=== PATIENT | female | born 1960 | race Asian ===

== ENCOUNTER 2019-10-27 12:24 | Outpatient (CLI) | payer OTHER, SELFPAY ==
--- NOTE | ~2019-10-27 | XR_ITS ---
XR hand RT min 3V DATE: 10/27/2019 12:52 INDICATION: Right hand pain TECHNIQUE: 3 views COMPARISON: 10/27/2016 right hand FINDINGS: There is prominent osteoarthritic change at the first carpometacarpal joint. Diffuse osteopenia. No fracture, dislocation, periosteal reaction or bone destruction is detected. IMPRESSION: Osteopenia Prominent osteoarthritic change at the first carpometacarpal joint Reviewed, dictated and finalized at location A.
--- NOTE | ~2019-10-27 | XR_ITS ---
XR knee RT min 4V, XR knee LT min 4V 10/27/2019 12:52 Indication: Bilateral knee pain Procedure: 4 views each knee Comparison: No prior studies for comparison. Findings: There is mild osteoarthritis of both knees. No fracture or traumatic malalignment. Small ri ght joint effusion. No significant left knee effusion Impression: 1: Mild osteoarthritis of the knees. 2: Small right knee effusion. Reviewed, dictated and finalized at location A. Impression: 1: Mild osteoarthritis of the knees. 2: Small right knee effusion. Impression: 1: Mild osteoarthritis of the knees. 2: Small right knee effusion.
== END 2019-10-27 12:25 | disposition home or self-care (01) ==
PROVIDERS: PCP Family Medicine; Visit Provider Nurse Practitioner
DX: M79.641 Pain in right hand (principal); M25.562 Pain in left knee; M25.561 Pain in right knee; M85.841 Other specified disorders of bone density and structure, right hand; M17.0 Bilateral primary osteoarthritis of knee; M25.461 Effusion, right knee
CPT/HCPCS: 73130; 73564

== ENCOUNTER 2020-04-16 21:56 | Emergency (ER) | payer OTHER, SELFPAY ==
--- NOTE | ~2020-04-16 | XR_ITS ---
EXAMINATION: XR chest 1V portable INDICATION: Cough, COVID 19 positive TECHNIQUE: Portable AP chest at 2243 hours COMPARISON: 06/19/2011 FINDINGS: There are patchy opacities of the mid and lower lung zones, right greater than left. No ple ural effusion or pneumothorax is identified. The cardiomediastinal silhouette is normal. The visualiz ed osseous structures are unremarkable. IMPRESSION: 1. Patchy opacities of the mid and lower lung zones, consistent with COVID 19 pneumonia. Reviewed, dictated and finalized at location A. [employer]CHO[employer]INATOR IMPRESSION: 1. Patchy opacities of the mid and lower lung zones, consistent with COVID 19 p neumonia.
[2020-04-16 22:04] VITALS: BP 125/77; PULSE 78; RESP 22; TEMP 37.1; O2SAT 98
--- NOTE | 2020-04-16 22:25 | ED.GENADULT ---
HPI - General Adult General Chief complaint: Nausea/Vomiting/Diarrhea Stated complaint: covid+ 04/11/2020; fever/diarrhea/sob Time Seen by Provider: 04/16/20 22:16 Source: patient History of Present Illness HPI narrative: Patient is a 59 y/o female complaining of fever and diarrhea for 9 days. She states that her fever was up to 102 earlier today. She took Tylenol, which usually helps with her fever, but her fever usually returns. She also has a cough. She had COVID test on 04/10 and was told that it was positive on 04/11. Related Data Home Medications Medication Instructions Recorded Confirmed acetaminophen 325 mg capsule 325 mg PO Q6H PRN 11/17/19 11/17/19 metoprolol tartrate 50 mg tablet 50 mg PO DAILY 11/17/19 11/17/19 Allergies Allergy/AdvReac Type Severity Reaction Status Date / Time No Known Allergies Allergy Verified 11/17/19 13:44 Review of Systems Constitutional: Constitutional: Denies chills, Reports fever(s), Denies headache(s) and Denies weakness Eyes: Eyes: Denies blurry vision ENT: Denies headache(s) and Denies neck pain Cardiovascular: Cardiovascular: Denies chest pain and Denies dyspnea Respiratory: Respiratory: Denies cough and Denies dyspnea Gastrointestinal: Gastrointestinal: Denies abdominal pain, Reports diarrhea, Denies nausea and Denies vomiting Genitourinary: Genitourinary: Denies hematuria and Denies dysuria Musculoskeletal: Musculoskeletal: Denies back pain and Denies neck pain Neurologic: Denies headache(s) and Denies weakness FOR[facility]LY [facility] Past Medical History Medical History Arthritis Bilateral knee pain Chronic headaches Degenerative joint disease of knee Frequency of urination Hearing loss History of angiography HTN (hypertension) Knee effusion Seasonal allergies Sleep disorder Stomach ulcer Family History Family History Father Hypertension, Onset Age: 83 Family history of cardiovascular disease, Onset Age: 82 Mother Hypertension, Onset Age: 65 Other Arthritis Social History Social History Smoking status: Never smoker Alcohol intake: never Exam Const: General: no acute distress and well developed Orientation/consciousness: oriented to person, oriented to place, oriented to time and patient oriented x3 HENMT: Head: normocephalic Ears: external ears normal General nose exam: Normal external nose present Eyes: General: appearance normal, both eyes and all related structures Conjunctivae: conjunctivae normal Neck: Neck: normal visual inspection and full ROM Chest: Chest palpation & inspection: normal inspection of the chest and no tenderness Resp: Effort & Inspection: normal respiratory effort Auscultation: clear to auscultation bilaterally Cardio: Rate: regular rate Rhythm: regular rhythm GI: GI Palp: No abdominal tenderness and Yes Soft to palpation Skin: General skin exam: normal color and turgor normal Neuro: General: oriented to person, oriented to place, oriented to time and patient oriented x3 Cognition (Neuro): normal cognition Extrem: General: normal to inspection, full ROM and no pedal edema Psych: Appearance: grossly normal Mental Status: mental status grossly normal Affect: normal affect Course Consultations Consultation #1: Discussed with Dr. Reyes, who agrees with plan for discharge and will follow up with patient tomorrow. Date: 04/16/20 Time: 23:40 Vital Signs Vital signs: Vital Signs Temperature 37.1 C 04/16/20 22:04 Pulse Rate 78 04/16/20 22:04 Respiratory Rate 22 H 04/16/20 22:04 Blood Pressure 125/77 04/16/20 22:04 Pulse Oximetry 98 04/16/20 22:04 Temperature 37.1 C 04/16/20 22:04 Pulse Rate 76 04/16/20 22:46 Respiratory Rate 22 H 04/16/20 22:04 Blood Pressure 125/77 04/16/20 22:04 Pulse Oximetry 99
[2020-04-16 22:46] VITALS: BP 108/68; PULSE 74; PULSE 76; RESP 16; O2SAT 94; O2SAT 99
[2020-04-16] MEDS: SODIUM CHLORIDE 0.9% IV 1,000 ML 999 ML IV CONT (22:46)
[2020-04-16 22:50] LABS: Basophils Percent Auto 0.2 % (0.2-1.2); Hematocrit 34.3 % (37.0-47.0); Hemoglobin 10.7 g/dL (12.0-15.0); Immature Granulocyte Absolute 0.02 K/mm3 (0.00-0.031); Immature Granulocyte Percent A 0.4 % (0-0.5); Lymphocytes Absolute Auto 1.65 K/mm3 (0.9-3.2); Lymphocytes Percent Auto 28.9 % (18.3-44.2); Mean Corpuscular HGB Conc 31.2 g/dl (32-36); Mean Corpuscular Hemoglobin 25.8 pg (26-34); Mean Corpuscular Volume 82.7 fl (80-100); Mean Platelet Volume 11.2 fl (7.4-10.4); Monocytes Absolute Auto 0.2 K/mm3 (0.1-0.6); Monocytes Percent Auto 4.2 % (2.6-8.5); Neutrophils Absolute Auto 3.8 K/mm3 (1.3-6.7); Neutrophils Percent Auto 66.3 % (45.5-73.1); Platelet Count Result 158 k/mm3 (150-375); Red Blood Count 4.15 M/mm3 (4.2-5.4); Red Cell Distribution Width 12.5 % (11.5-14.5); White Blood Count 5.7 K/mm3 (4.5-10.0)
[2020-04-16 22:58] LABS: Add Urine Microscopic? YES; Appearance Urine Clear (Clear); Bilirubin Urine Negative (Negative); Blood Urine 1+ (Negative); Color Urine Straw (Yellow); Glucose Urine UA Negative (Negative); Ketones Urine Negative (Negative); Leukocyte Esterase Ur Negative LEU/UL (Negative); Mucus Urine Rare /lpf; Nitrate Urine Negative (Negative); Protein Urine Negative (Negative); Squamous Epithelial Cell Urine Rare /hpf (Few); Urobilinogen Urine Negative mg/dL (<2.0); WBC Urine 0-3 /hpf
[2020-04-16 23:07] LABS: Alanine Aminotransferase 20 U/L (4-35); Albumin Level 3.6 g/dL (3.5-5.1); Alkaline Phosphatase 52 U/L (38-126); Anion Gap 6 mmol/L (8-16); Aspartate Amino Transferase 35 U/L (14-36); Bilirubin,Total 0.2 mg/dL (0.2-1.3); Blood Urea Nitrogen 13 mg/dL (7-17); Carbon Dioxide 29 mmol/L (22-30); Chloride 97 mmol/L (98-107); Estimated CRCL calculation 41 ml/min; Estimated Glomerular Filt Rate 51; Glucose 115 mg/dL (65-105); Potassium 3.8 mmol/L (3.4-5.0); Sodium 132 mmol/L (137-145)
[2020-04-17 00:13] VITALS: BP 110/65; PULSE 72; RESP 20; TEMP 37.7; O2SAT 99
== END 2020-04-17 00:15 | disposition home or self-care (01) ==
PROVIDERS: Emergency Provider Emergency Medicine; PCP Family Medicine
DX: U07.1 COVID-19 (principal); J12.82 Pneumonia due to coronavirus disease 2019; M17.11 Unilateral primary osteoarthritis, right knee; I10 Essential (primary) hypertension
CPT/HCPCS: 36415; 71045; 80053; 81001; 85025; 96360; 99283; J7030

== ENCOUNTER 2020-11-13 13:30 | Outpatient (RCR) | payer OTHER, SELFPAY ==
--- NOTE | 2020-09-12 15:44 | PTOPEVAL ---
Thank you for referring Flaquita Hough to [facility].? The patient is scheduled to be seen for therapy? 2 x/week for 5 weeks. Please review, sign, date and return this plan of care CORINE. I agree with and certify that the following plan of care is medically necessary. Referring Physician Date Attending Provider: Isaias Chung MD Diagnosis OA ponce knee Onset chronic Additional Evaluation Detail Fell down the steps 8 yrs ago, landing on her left knee. She has received an injection in both knees. She has a compression brace for her knee, but not consistently wearing. - not consistently performing a HEP. Subjective Information She reports difficulty Query Text:As Reported By Patient/ transitioning from sit<>stand, Family negotiating steps, running, walking. She increased pain with bending the knees. She reports limited with prolonged sitting, standing and inhalation therapist due to pain. She tries to avoid steps, but her bedroom is on the 2nd level. She has mild swelling in the left knee. Diagnostic Tests X-Rays For This Problem Yes: Mild to moderate medial and lateral compartment DJD with osteophyte Previous Treatments Previous Treatments For This Problem yes 2-3 yrs ago Pain Assessment Self Report Pain Assessment Left Knee(s) Reported Pain Level 8 Pain Description Aching,Sharp Greatest Pain Intensity 10 Pain Aggravating Factors ADL's,Bending,Exercise/ Activity,Lifting,Prolonged Position,Sitting,Stair Climbing,Walking,Weight Bearing/Standing Right Knee(s) Reported Pain Level 6 Pain Description Aching,Sharp Greatest Pain Intensity 10 Pain Aggravating Factors ADL's,Bending,Exercise/ Activity,Lifting,Prolonged Position,Sitting,Stair Climbing,Walking,Weight Bearing/Standing Lower Extremity Range of Motion Knee Range of Motion Right Knee Flexion Range of Motion - Active 130 Knee Extension Range of Motion - Active 0 Left Knee Flexion Range of Motion - Active 135
--- NOTE | 2020-10-10 14:26 | PCPTNOTE ---
Patient did not show up for scheduled appointment this date. Called and left voicemail about missed appointment today. Reminded of upcoming appointment on Thursday10/15/20 @ 14:00.
--- NOTE | 2020-10-17 15:08 | PTOPEVAL ---
Physical Therapy Progress Note Thank you for referring Flaquita Hough to [facility].?See summary below for pt's progress with 10 therapy visits. She is progressing towards her therapy goals. The patient is scheduled to be seen for therapy? 2 x/week for 3 weeks missing week of 10/22/20 due to out of town. Please review, sign, date and return this plan of care CORINE. I agree with and certify that the following plan of care is medically necessary. Referring Physician Date Attending Provider: Isaias Chung Diagnosis OA ponce knee Onset chronic Additional Evaluation Detail Fell down the steps 8 yrs ago, landing on her left knee. She has received an injection in both knees. She has a compression brace for her knee, but not consistently wearing. - not consistently performing a HEP. Subjective Information She reports improved ability Query Text:As Reported By Patient/ to difficulty with daily task. Family She continues to have limitations with sit<>stand movement from all surfaces, negotiating steps,squatting, sitting, and walking. She increased pain with bending the knees. She reports limitations with hold chores due to pain. She tries to avoid steps due to pain. She does feel like she is getting stronger with therapy. Slight improve noises from the knee. Pain Assessment Left Knee(s) Reported Pain Level 6 Pain Description Aching,Sharp Pain Frequency Continuous Lowest Pain Intensity 5 Greatest Pain Intensity 10 Right Knee(s) Reported Pain Level 6 Lowest Pain Intensity 5 Greatest Pain Intensity 10 Lower Extremity Range of Motion Knee Range of Motion Right Knee Flexion Range of Motion - Active 130 Knee Extension Range of Motion - Active 0 Left Knee Flexion Range of Motion - Active 135 Knee Extension Range of Motion - Active 0 Lower Extremity Muscle Strength Testing Hip Strength Bilateral Hip Flexion Strength 4+ Good + Hip Extension Strength 3 Fair Hip Abduction Strength 3 Fair Knee Strength Bilateral Knee Flexion Strength 4 Good Knee Extension Strength 4+ Good + Muscle Length Testing Muscle Length Testing
--- NOTE | 2020-11-07 12:44 | PCPTNOTE ---
Patient called & cancelled scheduled appointment this date and rescheduled for 11/08/20.
--- NOTE | 2020-11-13 14:24 | PTOPEVAL ---
Physical therapy Discharge Note Thank you for referring Flaquita Hough to [facility].?She has received 16 therapy visits to address chronic knee pain. She has been instructed in a HEP. She has partially achieved her therapy goals at this time. Will DC skilled therapy services as she has reached maximal potential with skilled therapy services at this time. Please review, sign, date and return this discharge summary CORINE. I agree with and certify that the following plan of care is medically necessary. Referring Physician Date Attending Provider: Isaias Chung Diagnosis OA pnoce knee Onset chronic Additional Evaluation Detail Fell down the steps 8 yrs ago, landing on her left knee. She has received an injection in both knees. Subjective Information She reports improved ability Query Text:As Reported By Patient/ to difficulty with daily task. Family She continues to have limitations with distance walking. She has difficulty with prolonged sitting or long car rides. She denies any progress with ability to negotiate steps. Cont to c/o noises from the knee with knee motions. Reports improved ability to perform sit<>Stand as a result of therapy. States she is performing HEP daily. Pain Assessment Left Knee(s) Reported Pain Level 5 Lowest Pain Intensity 4 Greatest Pain Intensity 10 Right Knee(s) Reported Pain Level 5 Lowest Pain Intensity 4 Greatest Pain Intensity 10 Lower Extremity Muscle Strength Testing Hip Strength Bilateral Hip Flexion Strength 4+ Good + Hip Extension Strength 3+ Fair + Hip Abduction Strength 3 Fair Hip Strength Comments poor effort with testing Knee Strength Bilateral Knee Flexion Strength 4 Good Knee Extension Strength 4+ Good + Knee Strength Comments poor effort with testing Balance Assessment 5 Time Sit to Stand Time in Seconds 16 5 Time Sit to Stand Comments improved LE control and movement, without UE, wide CHRIS Gait Assessment Gait Pattern Assessment Gait Pattern Trendelenburg Gait Gait Pattern Observed Decreased Stride Length - Left ,Decreased Stride Length - Right,No Heel Strike - Left,No Heel Strike - Right,Trunk Flexed Other Gait Obs
== END 2020-11-13 16:36 | disposition home or self-care (01) ==
LOC: ANHPT 13:30
PROVIDERS: PCP Family Medicine
DX: M17.12 Unilateral primary osteoarthritis, left knee (principal)
CPT/HCPCS: 97014; 97110; 97112; 97140; 97162; 97530; G0283

== ENCOUNTER 2021-09-26 13:05 | Outpatient (RCR) | payer OTHER, SELFPAY | END 2021-09-26 23:59 | disposition home or self-care (01) | LOC: ANHAUDIO 13:05 | PROVIDERS: PCP Family Medicine; Visit Provider Family Medicine | DX: Z46.1 Encounter for fitting and adjustment of hearing aid (principal) | CPT/HCPCS: 99199 ==

== ENCOUNTER 2021-09-30 19:07 | Emergency (ER) | payer OTHER, SELFPAY ==
--- NOTE | ~2021-09-30 | XR_ITS ---
EXAMINATION: XR knee RT min 4V DATE: 09/30/2021 20:11 INDICATION: Right knee pain. TECHNIQUE: 4 views of right knee were obtained. COMPARISON: Right knee radiographs 01/01/21 FINDINGS: Bone alignment is normal. No fracture. There is severe osteoarthritis of patellofemoral com partment and mild osteoarthritis of medial and lateral compartments. There is a small knee joint effu francine. IMPRESSION: 1. Severe right knee osteoarthritis. 2. Small right knee joint effusion. Reviewed, dictated and finalized at location A.
[2021-09-30 19:44] VITALS: BP 168/68; PULSE 65; RESP 20; TEMP 36.2; O2SAT 100
--- NOTE | 2021-09-30 22:07 | ED.LOWEXIN ---
HPI - Extremity Injury (Lower) General Chief Complaint: Extremity Injury, Lower Stated Complaint: right leg pain Time Seen by Provider: 09/30/21 21:43 History of Present Illness HPI Narrative: 61-year-old female presents emergency room secondary pain to her right knee. States she was down doing some bathroom floors and suddenly has some pain into her right knee. That happened a day or so ago and continued to have the pain. Denies any falls. Denies any history of any chronic ongoing pain with that right knee. Not starting care for prior to today. Related Data Home Medications Medication Instructions Recorded Confirmed acetaminophen 325 mg capsule 325 mg PO Q6H PRN 11/17/19 01/01/21 (Tylenol) metoprolol tartrate 50 mg tablet 50 mg PO DAILY 11/17/19 01/01/21 Allergies Allergy/AdvReac Type Severity Reaction Status Date / Time No Known Allergies Allergy Verified 09/30/21 19:47 Review of Systems Review of Systems: CONSTITUTIONAL: Denies fever, chills, or sweats. EYES: Denies visual changes, redness, or discharge. ENT: Denies rhinorrhea, congestion, sore throat, or otalgia. CARDIOVASCULAR: Denies chest pain, palpitations, or edema. RESPIRATORY: Denies cough or dyspnea. GASTROINTESTINAL: Denies abdominal pain, nausea, vomiting, or diarrhea. GENITOURINARY: Denies dysuria or hematuria. SKIN: Denies rash or itching. MUSCULOSKELETAL: Pain to the right knee. Falls or trauma. NEUROLOGIC: Denies headache, numbness, or weakness. PSYCHIATRIC: Denies anxiety or depression. COUNT INCLUDES THE [facility] Past Medical History Medical History Arthritis Bilateral knee pain Chronic headaches Degenerative joint disease of knee Frequency of urination Hearing loss History of angiography HTN (hypertension) Knee effusion Left knee DJD Left knee pain Right knee DJD Right knee pain Seasonal allergies Sleep disorder Stomach ulcer Family History Family History Father Hypertension, Onset Age: 83 Family history of cardiovascular disease, Onset Age: 82 Mother Hypertension, Onset Age: 65 Other Arthritis Social History Social History Smoking status: Never smoker Alcohol intake: never Exam Narrative: APPEARANCE: Well appearing, no pain or distress, well-nourished. Head Normocephalic and atraumatic. EYES: PERRLA/EOMI, conjunctivae clear. NOSE: Normal with no drainage EARS:TMS clear with Vu, with good light reflex. THROAT: Pharynx clear, no exudate. NECK: Supple. No adenopathy, no masses. RESPIRATORY: Airway patent, respirations nonlabored. Clear to auscultation bilaterally, no rales, rhonchi, wheezing. CARDIOVASCULAR: Regular rate and rhythm without murmurs, rubs, or gallops. ABDOMINAL: Soft, nontender, nondistended, no hepatosplenomegaly Musculoskeletal: Moves all extremities. Strength/ROM intact, No edema, No calf tenderness. Some mild tenderness to palpation of the right knee. No large effusion able to be noted on physical examination. Patella is not ballotable. NEURO: Alert. Cranial nerves II through XII intact. Normal gait. Good coordination. Nonfocal examination. SKIN:: Warm, dry. Normal Color PSYCHIATRIC: Normal affect/mood, normal interaction Course Vital Signs Vital signs: Vital Signs Temperature 97.2 F L 09/30/21 19:44 Pulse Rate 65 09/30/21 19:44 Respiratory Rate 20 09/30/21 19:44 Blood Pressure 168/68 H 09/30/21 19:44 Pulse Oximetry 100 09/30/21 19:44 Oxygen Delivery Room Air 09/30/21 19:44 Temperature 97.2 F L 09/30/21 19:44 Pulse Rate 65 09/30/21 19:44 Respiratory Rate 20 09/30/21 19:44 Blood Pressure 168/68 H 09/30/21 19:44 Pulse Oximetry 100 09/30/21 19:44 Oxygen Delivery Room Air 09/30/21 19:44 MDM - Extremity Injury (Lower) MDM Narrative Medical decision making narrative: X-ray
== END 2021-09-30 22:29 | disposition home or self-care (01) ==
LOC: ANHED 22:12
PROVIDERS: Emergency Provider Emergency Medicine; PCP Family Medicine
DX: M17.11 Unilateral primary osteoarthritis, right knee (principal); M25.461 Effusion, right knee; I10 Essential (primary) hypertension
CPT/HCPCS: 73564; 99283

== ENCOUNTER 2021-11-10 12:32 | Outpatient (CLI) | payer OTHER, SELFPAY ==
--- NOTE | ~2021-11-10 | MR_ITS ---
EXAMINATION: MR knee LT wo con DATE: 11/10/2021 13:54 INDICATION: Left knee pain. TECHNIQUE: Magnetic resonance imaging (MRI) of the left knee was performed without intravenous contra st. Sequences included axial PD-weighted FS FSE, coronal PD-weighted FSE and PD-weighted FS FSE, sagi ttal PD-weighted FSE, and sagittal T2-weighted FS FSE. COMPARISON: Left knee radiographs 10/10/2021 FINDINGS: Medial compartment: Medial meniscus is normal. There is shallow partial-thickness cartilage loss of the tibial condyle in volving the central articular surface with moderate subchondral edema-like marrow signal intensity. D ecreased signal in the cartilage is equivocal for deeper cartilage injury. Femoral condyle demonstrat es full-thickness cartilage loss of extreme posterior articular surface with intra-articular osteophy te. There is deep partial thickness cartilage loss of femoral condyle involving the central articular surface. Osteophytes are noted. Lateral compartment: Lateral meniscus is normal. There is deep partial thickness cartilage loss of tibial condyle medially . There is shallow partial-thickness cartilage loss of femoral condyle. Osteophytes are noted. Patellofemoral compartment: There is full-thickness cartilage loss involving patellar medial facet, median ridge, and lateral fac et with cortical remodeling and mild subchondral edema-like marrow signal intensity. There is full-th ickness cartilage loss of central and lateral trochlea with cortical remodeling and mild subchondral edema-like marrow signal intensity. Osteophytes are noted. Ligaments and tendons: The anterior and posterior cruciate ligaments are normal. Medial collateral ligament is normal. There are changes of prior sprain of fibular collateral ligament characterized by increased signal intensi ty proximally. There is mild patellar tendinopathy. Fluid: There is a small knee joint effusion. There is a small Wilhelm's cyst. There is mild prepatellar and marte perficial infrapatellar bursitis. IMPRESSION: 1. Severe chondrosis of patellofemoral compartment and moderate chondrosis of medial and lateral comp artments. 2. Small knee joint effusion. 3. Small Wilhelm's cyst. Reviewed, dictated and finalized at location A. IMPRESSION: 1. Severe chondrosis of patellofemoral compartment and moderate chondrosis of m edial and lateral compartments. 2. Small knee joint effusion. 3. Small Wilhelm's cyst.
--- NOTE | ~2021-11-10 | MR_ITS ---
EXAMINATION: MR knee RT wo con DATE: 11/10/2021 13:54 INDICATION: Right knee pain. TECHNIQUE: Magnetic resonance imaging (MRI) of the right knee was performed without intravenous contr ast. Sequences included axial PD-weighted FS FSE, coronal PD-weighted FSE and PD-weighted FS FSE, sag ittal PD-weighted FSE, and sagittal T2-weighted FS FSE. COMPARISON: Right knee radiographs 10/10/2021 FINDINGS: Medial compartment: Medial meniscus is normal. There is deep partial thickness cartilage loss of tibial condyle involving the central articular surface with mild subchondral edema-like marrow signal intensity. There is rachna p partial thickness cartilage loss of femoral condyle involving the central articular surface. Osteop hytes are noted. Lateral compartment: Lateral meniscus is normal. There is deep partial thickness cartilage loss of tibial condyle involvin g the medial articular surface. There is cartilage surface irregularity of femoral condyle. Osteophyt es are noted. Patellofemoral compartment: There is full-thickness cartilage loss of patellar median ridge and lateral facet with cortical remod eling and mild subchondral edema-like marrow signal intensity. There is deep partial thickness cartil age loss of patellar medial facet. There is full-thickness cartilage loss of central and lateral troc hlea with cortical remodeling and mild subchondral edema-like marrow signal intensity. Osteophytes ar e noted. Ligaments and tendons: The anterior and posterior cruciate ligaments are normal. Medial collateral ligament and lateral jame ateral ligament complex are normal. The patellar tendon is normal. Fluid: There is a small knee joint effusion. There is a moderate-sized Wilhelm's cyst. There is mild superfici al infrapatellar bursitis. IMPRESSION: 1. Severe chondrosis of patellofemoral compartment and moderate chondrosis of medial and lateral comp artments. 2. Small knee joint effusion. 3. Moderate-sized Wilhelm's cyst. Reviewed, dictated and finalized at location A. IMPRESSION: 1. Severe chondrosis of patellofemoral compartment and moderate chondrosis of m edial and lateral compartments. 2. Small knee joint effusion. 3. Moderate-sized Wilhelm's cyst.
== END 2021-11-10 12:33 | disposition home or self-care (01) ==
PROVIDERS: PCP Family Medicine; Visit Provider Nurse Practitioner Family
DX: M71.22 Synovial cyst of popliteal space [Baker], left knee (principal); M71.21 Synovial cyst of popliteal space [Baker], right knee; M25.462 Effusion, left knee; M25.461 Effusion, right knee
CPT/HCPCS: 73721

== ENCOUNTER 2022-02-19 13:18 | Outpatient (CLI) | payer OTHER, SELFPAY ==
[2022-02-19 13:40] LABS: Basophils Percent Auto 0.4 % (0.2-1.2); Eosinophils Absolute Auto 0.2 K/mm3 (0-0.3); Hematocrit 38.3 % (37.0-47.0); Hemoglobin 11.7 g/dL (12.0-15.0); Immature Granulocyte Absolute 0.02 K/mm3 (0.00-0.031); Immature Granulocyte Percent A 0.3 % (0-0.5); Lymphocytes Absolute Auto 2.41 K/mm3 (0.9-3.2); Mean Corpuscular HGB Conc 30.5 g/dl (32-36); Mean Corpuscular Hemoglobin 26.3 pg (26-34); Mean Corpuscular Volume 86.1 fl (80-100); Mean Platelet Volume 11.7 fl (7.4-10.4); Monocytes Absolute Auto 0.5 K/mm3 (0.1-0.6); Monocytes Percent Auto 6.1 % (2.6-8.5); Neutrophils Absolute Auto 4.5 K/mm3 (1.3-6.7); Neutrophils Percent Auto 59.2 % (45.5-73.1); Platelet Count Result 172 k/mm3 (150-375); Red Blood Count 4.45 M/mm3 (4.2-5.4); Red Cell Distribution Width 13.7 % (11.5-14.5); White Blood Count 7.5 K/mm3 (4.5-10.0)
--- NOTE | 2022-02-19 13:47 | ECG_ITS ---
Measurements Intervals [place] Rate: 51 P: 57 MA: 171 QRS: 67 QRSD: 94 T: 43 QT: 455 QTc: 422 Interpretive Statements SINUS BRADYCARDIA BASELINE ARTIFACT- I BORDERLINE ECG NO PREVIOUS ECG AVAILABLE FOR COMPARISON Electronically Signed On 02-19-2022 14:29:31 NOVELTY DIPPER by Dain Stanton D.O.
[2022-02-19 13:51] LABS: Anion Gap 4 mmol/L (8-16); Blood Urea Nitrogen 11 mg/dL (7-17); Calcium 8.3 mg/dL (8.4-10.2); Carbon Dioxide 31 mmol/L (22-30); Chloride 105 mmol/L (98-107); Estimated Glomerular Filt Rate > 60; Glucose 94 mg/dL (65-110); Potassium 4.1 mmol/L (3.4-5.0); Sodium 140 mmol/L (137-145)
[2022-02-19 14:16] LABS: Add Urine Microscopic? YES; Appearance Urine Clear (Clear); Bilirubin Urine Negative (Negative); Blood Urine Trace-Intact (Negative); Color Urine Yellow (Yellow); Glucose Urine UA Negative (Negative); Ketones Urine Negative (Negative); Leukocyte Esterase Ur Negative LEU/UL (Negative); Nitrate Urine Negative (Negative); Protein Urine Negative (Negative); Specific Grav Ur 1.015 (1.001-1.035); Urobilinogen Urine 0.2 mg/dL (<2.0)
[2022-02-19 14:42] LABS: Mucus Urine Rare /lpf; Squamous Epithelial Cell Urine Occasional /hpf (Few); WBC Urine 0-3 /hpf
== END 2022-02-19 13:19 | disposition home or self-care (01) ==
PROVIDERS: PCP Family Medicine; Visit Provider Orthopaedic Surgery
DX: M17.11 Unilateral primary osteoarthritis, right knee (principal); R00.1 Bradycardia, unspecified
CPT/HCPCS: 36415; 80048; 81001; 85025; 93005

== ENCOUNTER 2022-04-07 13:52 | Outpatient (CLI) | payer OTHER, SELFPAY ==
[2022-04-07 15:21] LABS: Appearance Urine Clear (Clear); Basophils Percent Auto 0.3 % (0.2-1.2); Bilirubin Urine Negative (Negative); Blood Urine Trace-intact (Negative); Color Urine Yellow (Yellow); Eosinophils Absolute Auto 0.1 K/mm3 (0-0.3); Eosinophils Percent Auto 1.8 % (0-4.4); Glucose Urine UA Negative (Negative); Hematocrit 35.7 % (37.0-47.0); Hemoglobin 11.2 g/dL (12.0-15.0); Immature Granulocyte Absolute 0.01 K/mm3 (0.00-0.031); Immature Granulocyte Percent A 0.1 % (0-0.5); Ketones Urine Negative (Negative); Leukocyte Esterase Ur Negative LEU/UL (Negative); Lymphocytes Absolute Auto 2.77 K/mm3 (0.9-3.2); Lymphocytes Percent Auto 40.7 % (18.3-44.2); Mean Corpuscular HGB Conc 31.4 g/dl (32-36); Mean Corpuscular Hemoglobin 26.3 pg (26-34); Mean Corpuscular Volume 83.8 fl (80-100); Mean Platelet Volume 11.4 fl (7.4-10.4); Monocytes Absolute Auto 0.4 K/mm3 (0.1-0.6); Monocytes Percent Auto 6.5 % (2.6-8.5); Neutrophils Absolute Auto 3.4 K/mm3 (1.3-6.7); Neutrophils Percent Auto 50.6 % (45.5-73.1); Nitrate Urine Negative (Negative); Platelet Count Result 216 k/mm3 (150-375); Protein Urine 1+ mg/dL (Negative); Red Blood Count 4.26 M/mm3 (4.2-5.4); Red Cell Distribution Width 14.2 % (11.5-14.5); Specific Grav Ur 1.025 (1.001-1.035); Urobilinogen Urine 0.2 mg/dL (<2.0); White Blood Count 6.8 K/mm3 (4.5-10.0); pH Urine 6.5 (5.0-9.0)
[2022-04-07 15:28] LABS: Mucus Urine Rare /lpf
[2022-04-07 15:29] LABS: Add Urine Microscopic? YES
[2022-04-07 15:32] LABS: Albumin Level 4.2 g/dL (3.5-5.1); Anion Gap 5 mmol/L (8-16); Blood Urea Nitrogen 15 mg/dL (7-17); Calcium 8.4 mg/dL (8.4-10.2); Carbon Dioxide 29 mmol/L (22-30); Chloride 101 mmol/L (98-107); Estimated Glomerular Filt Rate > 60; Glucose 98 mg/dL (65-110); INR 1.1; Prothrombin Time 13.8 Seconds (11.1-14.7); Sodium 135 mmol/L (137-145)
[2022-04-07 15:33] LABS: Partial Thromboplastin Time 30.9 SECONDS (22.3-36.8)
[2022-04-07 15:36] LABS: Urine Cotinine NEGATIVE
[2022-04-07 17:18] LABS: Hemoglobin A1C 5.7 % (<5.7)
== END 2022-04-07 13:53 | disposition home or self-care (01) ==
LOC: ANHSURGERY 13:56
PROVIDERS: PCP Family Medicine; Visit Provider Orthopaedic Surgery
DX: Z01.818 Encounter for other preprocedural examination (principal); M17.11 Unilateral primary osteoarthritis, right knee
CPT/HCPCS: 80048; 80307; 81001; 82040; 83036; 85025; 85610; 85730; 87081

== ENCOUNTER 2022-04-08 15:15 | Outpatient (CLI) | payer OTHER, SELFPAY ==
--- NOTE | ~2022-04-08 | DEXA_ITS ---
Bone Density Report Name: MARLENA SNIDER Age: 61 Sex: Female Ethnicity: Date of : 1960 Indication: postmenopausal; screening for osteoporosis; height loss; Referring Provider: LI ENGLE Study: Bone densitometry was performed. Exam Date: April 08, 2022 Accession number: [id number] Bone Density: Region BMD T-score Z-score Classification AP Spine(L1-L4) 0.754 -2.7 -1.2 Osteoporosis Femoral Neck (Left) 0.634 -1.9 -0.6 Osteopenia Total Hip (Left) 0.746 -1.6 -0.6 Osteopenia Femoral Neck (Right) 0.576 -2.5 -1.1 Osteoporosis Total Hip (Right) 0.661 -2.3 -1.3 Osteopenia Total Hip Mean 0.703 -2.0 -1.0 Osteopenia World Health Organization criteria for BMD impression classify patients as: Normal (T-score at or above -1.0), Osteopenia (T-score between -1.0 and -2.5), or Osteoporosis (T-score at or below -2.5). 10-year Fracture Risk: FRAX not reported because: Some T-score for Spine Total or Hip Total or Femoral Neck at or below -2.5 Clinical Information Provided by Patient: Has used the following medications: Vitamin D, Calcium Patient maximum height was 63 Menopause Age: 52 Does not regularly consume dairy products Onset of menses at age 14 Number of children 4 Impression: The patient has osteoporosis, based on the Total Spine T-score. Discussion: INCREASED RISK OF FRACTURE. BONE DENSITY IS UNDESIRABLY LOW AT ONE OR MORE SKELETAL SITES, CONSISTENT WITH POSTMENOPAUSAL OSTEOPOROSIS. This patient's lowest T-score meets the World Health Organization's (WHO) criteria for osteoporosis at one or more sites (T-score -2.5 or below). In untreated patients, the risk of osteoporotic fracture increases approximately two-fold for each 1.0 SD decrease in T-score. Low bone density is not the only risk factor for fracture; also consider factors such as patient's age, frailty or poor health, risk of falling, risk of injury, previous osteoporotic fracture, family history of osteoporosis, cigarette smoking, low body weight, etc. Not everyone with low bone mineral density has osteoporosis; osteomalacia and other metabolic bone disorders should also be considered. Patients who have osteoporosis should be evaluated for specific diseases and conditions (secondary causes) that may cause or contribute to bone loss. The [place] Association [employer] Endocrinologists (AACE) and National Osteoporosis Foundation (NOF) recommend pharmacologic intervention for all postmenopausal women whose T-score is in this range. The patient should follow a healthful lifestyle (good nutrition with adequate calcium and vitamin D, and appropriate weight-bearing exercise). Follow-Up: Consider a repeat BMD and Vertebral Fracture Assessment (VFA) exam in 2 years or sooner if medically necessary, to reassess this patient's status.
--- NOTE | ~2022-04-08 | MM_ITS ---
EXAMINATION: MM screening cornelio BI w gerard HISTORY: Screening mammogram TECHNIQUE: Craniocaudal and mediolateral oblique 3-D tomosynthesis images were obtained and synthetic 2-D images were generated. CAD analysis was submitted and interpreted. COMPARISON: 04/28/2018 diagnostic bilateral mammogram and limited right breast ultrasound examination 05/15/2017, 05/05 is also 2017 bilateral screening mammogram examinations BREAST PARENCHYMAL COMPOSITION: There are scattered areas of fibroglandular density. FINDINGS: Biopsy marker on the right. Focal asymmetry overlying the anterior medial left breast on CC view. Diagnostic left mammogram is re commended, with ultrasound if required. Otherwise there is no evidence of suspicious mass, calcification, or architectural distortion to sugg est malignancy in either breast. There has been no other suspicious interval change. IMPRESSION: 1. Focal asymmetry overlying the anterior medial left breast on CC projection 2. Diagnostic left mammogram is recommended, with ultrasound if required BI-RADS Category 0: Incomplete: Needs additional imaging evaluation. Reviewed, dictated and finalized at location A. UREMENT AGENT
== END 2022-04-08 15:16 | disposition home or self-care (01) ==
PROVIDERS: PCP Family Medicine; Visit Provider Obstetrics & Gynecology
DX: Z12.31 Encounter for screening mammogram for malignant neoplasm of breast (principal); Z78.0 Asymptomatic menopausal state; R92.8 Other abnormal and inconclusive findings on diagnostic imaging of breast; M85.89 Other specified disorders of bone density and structure, multiple sites; M81.0 Age-related osteoporosis without current pathological fracture
CPT/HCPCS: 77063; 77067; 77080

== ENCOUNTER 2022-04-16 10:21 | Outpatient (CLI) | payer OTHER, SELFPAY ==
--- NOTE | ~2022-04-16 | MM_ITS ---
EXAMINATION: MM diagnostic cornelio LT w gerard HISTORY: Focal asymmetry overlying the anterior medial left breast on screening craniocaudal view of April 08, 2022 TECHNIQUE: Additional 3-D tomosynthesis images of the left breast were performed and synthetic 2-D im ages were generated. CAD analysis was submitted and interpreted. COMPARISON: April 08, 2019 bilateral screening mammogram FINDINGS: The focal asymmetry noted in the anterior medial left breast on April 08, 2022 screening mammogram is not present on coned compression CC view of this area today. IMPRESSION: 1. No mammographic evidence of malignancy 2. Routine mammographic screening is recommended BI-RADS Category 1: Negative Reviewed, dictated and finalized at location A. SMISSION BUILDER
== END 2022-04-16 10:22 | disposition home or self-care (01) ==
LOC: ANHIMG 10:22
PROVIDERS: PCP Family Medicine; Visit Provider Obstetrics & Gynecology
DX: R92.8 Other abnormal and inconclusive findings on diagnostic imaging of breast (principal)
CPT/HCPCS: 77061; 77065; G0279

== ENCOUNTER 2022-04-23 16:41 | Inpatient (IN) | payer OTHER, SELFPAY ==
--- NOTE | 2022-04-07 14:31 | PC.NURSE ---
Report to the Outpatient Waiting Room, entrance under the green pavilion located off [facility], at time __0900 on date ___04/22/22____. Planned Procedure Time: ___1100 . Time changes happen often and if your time is changed the preop area will call you the afternoon before. - You and your visitor will be asked to self-screen and do not enter if you have any COVID symptoms. - Only one visitor is requested with a max of two and NO children visitors are allowed at this time. - The patient visitor may be requested to leave or wait in car when not with patient due to distancing restrictions. - A mask is optional within the hospital at this time. Patients may have clear liquids (water, carbonated beverages, clear teas, apple juice) until 3 hours prior to surgery with a maximum of 20 ounces. - No food from midnight until time of surgery - Infants may have breast milk until 4 hours before surgery, formula 6 hours prior to surgery. - Children will be allowed to drink immediately following surgery. If applicable, please bring a bottle or sippy cup to assist with drinking. Juice, water, soda, and popsicles are readily available. For infants on formula, please bring formula the day of surgery. Pacifiers are allowed. Take the following medications with a SIP of water the morning of surgery: ____METOPROLOL DO NOT STOP ANY OF YOUR OTHER PRESCRIPTION MEDICATIONS PRIOR TO SURGERY ?EXCEPT THE FOLLOWING Medications to discontinue per physician ___OSTEO BI-FLEX AND MELATONIN 3 DAYS PRE OP . LAST DOSE 04/18/22 Please no make-up, nail urdu, hairspray, perfume, deodorant, or body powder the day of surgery. No jewelry (including any body piercings) or valuables the day of surgery, leave them at home. Please take a shower or bath the night before, or the morning of, surgery with an antibacterial soap. Wear comfortable, loose fitting clothing. Children are encouraged to wear pajamas. - Jewelry must be removed prior to entering the operating room. Rings and piercings that are not removed may be cut off. - The hospital will not accept responsibility for valuables. - Please leave all valuables, including medications, at home the day of surgery. If you are going home after surgery, a licensed tanker truck driver must drive you home. - NO public transportation without another adult if you receive anesthesia. - We recommend that an adult stay with you for 24 hours following discharge. - We also recommend that you do not drive, make important decision, drink alcoholic beverages, or take any drugs that were not prescribed by your health care provider for at least 24 hours after your discharge time. For Pediatric surgeries, we recommend two adults accompany the child home. Follow any additional instructions given to you from your surgeon. If you or anyone in your household have experienced Covid symptoms in the past week, please notify your surgeon or the nurse liaison at the phone number below for possible testing. Telephone instructions given to ___PATIENT AND DAUGHTER GRACIE SNIDER and asked if any additional questions and then verbalized understanding. Patient advised to call surgeon office or pre surgery nurse liaison [phone] if any additional questions.
[2022-04-07 15:01] VITALS: BMI 24.5
--- NOTE | 2022-04-21 14:40 | WPDANESEPPF ---
Anes - Initial Pre Proc Eval Procedure: Operation Date: 04/22/22 11:00 Proposed Procedures p Right Total Knee Arthroplasty - Julito Vargas MD Date/Time: 04/21/22 14:40 Surgeon: Julito Vargas MD Pre Op Diagnosis: Rt Knee DJD Patient Data Age: 61 Gender: F Height: 1.6 m Weight: 62.9 kg Allergies Allergy/AdvReac Type Severity Reaction Status Date / Time No Known Allergies Allergy Verified 04/07/22 14:03 Home Medications Medication Instructions Recorded Confirmed Type acetaminophen 500 mg capsule 500 mg PO Q6H PRN Pain 04/07/22 04/22/22 History citalopram 20 mg tablet 20 mg PO HS 04/07/22 04/22/22 History glucosamine 750 ok-pctldtftcgs-stc 1 tablet PO DAILY 04/07/22 04/22/22 History no1 644 mg-C 30 mg-emmy 1 mg tablet (Osteo Bi-Flex Triple Strength) melatonin 5 mg tablet 5 mg PO HS PRN Insomnia 04/07/22 04/22/22 History metoprolol tartrate 25 mg tablet 12.5 mg PO BID 04/07/22 04/22/22 History omeprazole 40 mg capsule,delayed 40 mg PO PRN PRN Heartburn 04/07/22 04/22/22 History release zolpidem 10 mg tablet 10 mg PO HS 04/07/22 04/22/22 History chlorhexidine gluconate 4 % 1 applic topical ONCE #237 mL 04/11/22 Rx topical liquid (Hibiclens) ECG: Date of Service: 02/19/22 Procedure(s): CA 12 lead EKG Accession Number(s): [id number] cc: ~ ? Measurements Intervals? Rogers? Rate: ? 51 ? P:? 57 [place]: ? 171? QRS:? 67 QRSD: ? 94 ? T:? 43 QT: ? 455? QTc:? 422? Interpretive Statements SINUS BRADYCARDIA BASELINE ARTIFACT- I BORDERLINE ECG NO PREVIOUS ECG AVAILABLE FOR COMPARISON Electronically Signed On 02-19-2022 14:29:31 CAN LABELER by Dain Stanton D.O. Patient hx anesthesia problems: none Family hx anesthesia problems: none Results Review: All pre-operative results and documents have been reviewed as part of the pre-operative evaluation. [facility] Past Medical History Medical History Arthritis Bilateral knee pain Chronic headaches Degenerative joint disease of knee Frequency of urination Hearing loss History of angiography HTN (hypertension) Knee effusion Left knee DJD Left knee pain Right knee DJD Right knee pain Seasonal allergies Sleep disorder Stomach ulcer Family History Family History Father Hypertension, Onset Age: 83 Family history of cardiovascular disease, Onset Age: 82 Mother Hypertension, Onset Age: 65 Other Arthritis Social History Social History Smoking status: Never smoker Alcohol intake: never Living arrangements: with family Spiritual care concerns: No Anes - Eval Final PreProcedure Day of Procedure 04/21/22 14:40 Patient weight: normal Heart: regular rate and rhythm Lungs: clear to auscultation and normal air movement Airway: Mallampati scale class II Neurological: alert and oriented Last oral intake: >/= 8 hours ASA classification: II Emergent: no Anesthetic plan: proceed Anesthesia type and monitoring: general LMA Results Review: All pre-operative results and documents have been reviewed as part of the pre-operative evaluation. Informed Consent: The patient's anesthetic plan and its attendant risks and benefits were discussed with the patient/family/POA. Questions were solicited and answers provided to the satisfaction of the patient/family/POA.
[2022-04-22] VITALS (14 sets, daily range): BP systolic 120–153; BP diastolic 66–80; PULSE 58–84; RESP 12–16; TEMP 35.9–37; O2SAT 97–100
--- NOTE | 2022-04-22 07:16 | WPDHPUPDATE1 ---
History and Physical Update Update Date/Time: 04/22/22 07:16 History and Physical has been reviewed, including an updated exam of the patient. There are NO changes in the patient's condition. Risks, benefits, and alternatives have been discussed and questions answered. Patient agrees to proceed with procedure.
[2022-04-22] MEDS: LACTATED RINGERS 1,000 ML 30 ML IV CONT ×2 (09:15→13:07)
[2022-04-22] MEDS: TRANEXAMIC ACID 1,000MG/ISO100 1,000 MG/100 ML BAG 200 MG IVPB (11:05)
[2022-04-22] MEDS: ACETAMINOPHEN 500 MG TABLET 1000 MG PO (11:05)
[2022-04-22] MEDS: ceFAZolin 2 GM/D5W 50 ML 2 GM/50 ML BAG IVPB ×2 (11:08→18:11)
--- NOTE | 2022-04-22 11:09 | WPDANESPNB ---
Anes - Peripheral Nerve Block Date/Time: 04/22/22 11:09 I have discussed with the patient/family/POA the placement of a peripheral nerve block for post-operative pain management, including associated risks, benefits, complications, and side effects. Alternative methods of post-operative analgesia were detailed. Questions were solicited and answers provided to the satisfaction of the patient/family/POA. Time-Out: A pre-procedural Time-Out was completed immediately before starting the procedure and confirmed: Patient Identification, Site, Procedure, Patient Position and the Availability of Requisite Equipment. Clinical Indications: Acute post-operative pain management requested by the operative surgeon. Nerve Block Insertion Note Anes-nerve block: adductor canal right Patient position: supine Skin prep: chlorhexidine Needle: 22 gauge, stimulating, insulated echogenic needle. Needle length: 80 mm Technique: ultrasound Technique comment: in plane Injectate: bupivacaine 0.25% with epi 5 mcg/ml (30cc) Observations: tolerated well Complications: none Procedure start time:: 1055 Procedure end time:: 1100
[2022-04-22] MEDS: GENTAMICIN BONE CEMENT REFOBACIN 1 EACH TOPICAL (11:47)
[2022-04-22] MEDS: TRANEXAMIC ACID 1,000 MG/10 ML AMPUL 1000 MG IV PUSH (12:35)
--- NOTE | 2022-04-22 12:51 | P.OP_ITS ---
Procedure Note - Detailed Date of Procedure 04/22/22 Pre-op Diagnosis Rt Knee DJD Post-op Diagnosis Same Procedure Performed R TKA Surgeon Julito Vargas MD Anesthesia General Description of Procedure THE RIGHT KNEE WAS PREPPED AND DRAPED IN THE STERILE FASHION. THERE WAS A 10 DEGREE FLEXION CONTRACTURE. A MIDLINE SKIN INCISION WAS MADE. A MEDIAL PARAPATELLAR ARTHROTOMY WAS MADE. THE PATELLA WAS EVERTED. THERE WAS TRICOMPARTMENT DJD. AN INTRAMEDULLARY PANDA WAS PLACED IN THE FEMUR. A DISTAL FEMORAL CUT WAS MADE IN 5 DEGREES OF VALGUS REMOVING APPROXIMATELY 9 MM OF BONE FROM THE DISTAL FEMUR. THE FEMUR WAS SIZED TO 62.5. A 62.5 FEMORAL CUTTING BLOCK WAS PLACED IN 3 DEGREES OF EXTERNAL ROTATION AND IN ALIGNMENT WITH LEI'S LINE AND THE TRANSEPICONDYLAR AXIS. ANTERIOR POSTERIOR AND CHAMFER CUTS WERE MADE. THE CUTS WERE EXCELLENT. NEXT AN INTRAMEDULLARY CUTTING GUIDE WAS PLACED IN THE TIBIA. A TRANS TIBIAL CUT WAS MADE ALONG THE LONG AXIS OF THE TIBIA. APPROXIMATELY 10 MM OF BONE WAS REMOVED FROM THE HIGH SIDE OF THE TIBIA. THE TIBIA WAS THEN PLANED TO A SMOOTH SURFACE. POSTERIOR FEMORAL OSTEOPHYTES WERE REMOVED FROM THE FEMORAL CONDYLES. A 67 TIBIAL TRIAL WAS PLACED IN ALIGNMENT WITH THE 1/3 MEDIAL ASPECT OF THE TIBIAL TUBERCLE. THEN A 62.5 FEMORAL TRIAL COMPONENT WAS PLACED. BOTH HAD EXCELLENT FITS. EVENTUALLY A 10 MM POLYETHYLENE TRIAL COMPONENT WAS PLACED. THE KNEE WAS TAKEN THROUGH A RANGE OF MOTION. THE KNEE CAME OUT TO FULL EXTENSION. THERE WAS NO ABNORMAL T ILT TO THE PATELLA. THERE WAS GOOD A/P AND VARUS/VALGUS STABILITY. THERE WAS NO EXCESSIVE ROLL BACK WITH FLEXION. THE TRIAL COMPONENTS WERE REMOVED. THEN A 62.5 FEMORAL COMPONENT AND 67 TIBIAL COMPONENT WITH A 10 POLYETHYLENE COMPONENT WERE CEMENTED INTO PLACE. ONCE THE CEMENT WAS HARD THE KNEE WAS TAKEN THROUGH A ROM AGAIN AND FOUND TO BE STABLE WITH NO PATELLA TILT NO EXCESSIVE ROLL BACK WITH FLEXION AND GOOD STABILITY WITH COMPLETE AND FULL EXTENSION. THE PATELLA WAS TOO THIN FOR RESURFACING. THE KNEE WAS IRRIGATED WITH STERILE BETADINE AND WATER FOR ABOUT 3 MINUTES. THE BLEEDERS WERE CAUTERIZED. THE ARTHROTOMY WAS REPAIRED WITH NUMBER 1 VICRYL. THE SUB CUTANEOUS LAYER WITH 2-0 VICRYL AND THE SKIN WITH ANGELLA. THE WOUND WAS WASHED AND A STERILE DRESSING WAS APPLIED. PATIENT WAS EXTUBATED. Estimated Blood Loss -150.0 Pathology None sent Complications No immediate complications Condition Stable Disposition PACU
[2022-04-22] MEDS: fentaNYL CITRATE INJ (*CRX) 100 MCG/2 ML VIAL 25 MCG IV PUSH ×6 (13:20→14:11)
[2022-04-22] MEDS: SODIUM CHLORIDE 0.9% IV 1,000 ML 125 ML IV CONT (15:39)
[2022-04-22] MEDS: ONDANSETRON INJ 4 MG/2 ML VIAL IV PUSH (16:19)
[2022-04-22] MEDS: SENNA/DOCUSATE SODIUM TABLET 2 TAB PO (18:10)
[2022-04-22] MEDS: KETOROLAC 15 MG/ML VIAL (*BKC) IV PUSH (18:11)
[2022-04-22] MEDS: CITALOPRAM HYDROBROMIDE 20 MG TABLET PO (20:48)
[2022-04-22] MEDS: ASPIRIN 325 MG ENTERIC TABLET PO (20:48)
[2022-04-22] MEDS: METOPROLOL TARTRATE 12.5 MG TABLET PO (20:48)
[2022-04-22] MEDS: ZOLPIDEM TARTRATE (*CRX) 5 MG TABLET 10 MG PO (21:58)
[2022-04-22] MEDS: oxyCODONE/ACETAMINOPHEN (*CRX) 5-325 MG TABLET 1 TABLET PO (21:58)
[2022-04-23] VITALS (11 sets, daily range): BP systolic 90–111; BP diastolic 43–82; PULSE 55–66; RESP 16; TEMP 36.1–36.9; O2SAT 99–100
--- NOTE | ~2022-04-23 | US_ITS ---
EXAMINATION: US venous doppler LE RT DATE: 04/28/2022 15:50 INDICATION: increased calf pain, off blood thinners . TECHNIQUE: Grayscale images without and with compression and Doppler images of the right lower extrem ity veins were obtained. COMPARISON: None FINDINGS: The right common femoral vein, profunda (deep) femoral vein, femoral vein, popliteal vein, peroneal v ein, posterior tibial veins, gastrocnemius vein, and greater saphenous vein are patent. Subcutaneous edema present in the right lateral knee/upper calf. IMPRESSION: 1. Patent right lower extremity veins. No evidence of deep venous thrombosis. Reviewed, dictated and finalized at location K.
--- NOTE | ~2022-04-23 | XR_ITS ---
. XR_KNEE1-2VRT_CR DATE: 04/22/2022 13:21 INDICATION: Right knee replacement TECHNIQUE: Postoperative AP and lateral views COMPARISON: None FINDINGS: Anterior skin carolin are noted. There is expected postoperative subcutaneous, intra-articu lar and femoral intramedullary emphysema. Status post right knee arthroplasty without patellar resurfacing. Normal alignment. No fracture or di slocation is noted. A very thin 7 mm linear radiopaque density overlies the anterior aspect of the femoral tibial knee he int on the lateral view, obscured on the AP view. This may be a very small bone fragment. IMPRESSION: Status post right knee arthroplasty Possible very thin 7 mm linear bone fragment overlying anterior aspect of the femoral tibial knee joyce nt Reviewed, dictated and finalized at Location [facility]. Reviewed, dictated and finalized at location L. L [employer] IMPRESSION: Status post right knee arthroplasty Possible very thin 7 mm linear bone fragment overlying anterior aspect of the f emoral tibial knee joint
--- NOTE | ~2022-04-23 | XR_ITS ---
EXAM: XR_[id number]_CR DATE: 04/23/2022 17:32 HISTORY: hematoma . COMPARISON: 04/22/2022. FINDINGS: Right knee total arthroplasty hardware. Midline surgical carolin. Increased joint fluid, n ow moderate volume. Similar femoral intramedullary gas. More widespread distribution of intra-articul ar and subcutaneous gas, overall similar volume. Ossific linear density projecting over the infrapate llar fat pad. IMPRESSION: Stable linear ossific density projecting over the anterior knee joint. Increasing knee he int fluid. Reviewed, dictated and finalized at location [facility]. [employer] IMPRESSION: Stable linear ossific density projecting over the anterior knee joyce nt. Increasing knee joint fluid.
[2022-04-23] MEDS: KETOROLAC 15 MG/ML VIAL (*BKC) IV PUSH ×3 (00:23→11:49)
[2022-04-23] MEDS: ceFAZolin 2 GM/D5W 50 ML 2 GM/50 ML BAG IVPB ×2 (02:29→11:49)
[2022-04-23 06:37] LABS: Basophils Percent Auto 0.1 % (0.2-1.2); Eosinophils Percent Auto 0.1 % (0-4.4); Hematocrit 27.5 % (37.0-47.0); Hemoglobin 8.5 g/dL (12.0-15.0); Immature Granulocyte Absolute 0.06 K/mm3 (0.00-0.031); Immature Granulocyte Percent A 0.4 % (0-0.5); Lymphocytes Absolute Auto 2.22 K/mm3 (0.9-3.2); Lymphocytes Percent Auto 14.7 % (18.3-44.2); Mean Corpuscular HGB Conc 30.9 g/dl (32-36); Mean Corpuscular Hemoglobin 25.6 pg (26-34); Mean Corpuscular Volume 82.8 fl (80-100); Mean Platelet Volume 11.5 fl (7.4-10.4); Monocytes Absolute Auto 0.9 K/mm3 (0.1-0.6); Monocytes Percent Auto 5.6 % (2.6-8.5); Neutrophils Percent Auto 79.1 % (45.5-73.1); Platelet Count Result 160 k/mm3 (150-375); Red Blood Count 3.32 M/mm3 (4.2-5.4); Red Cell Distribution Width 14.2 % (11.5-14.5); White Blood Count 15.2 K/mm3 (4.5-10.0)
[2022-04-23 06:54] LABS: Anion Gap 2 mmol/L (8-16); Blood Urea Nitrogen 12 mg/dL (7-17); Calcium 7.6 mg/dL (8.4-10.2); Carbon Dioxide 28 mmol/L (22-30); Chloride 106 mmol/L (98-107); Estimated CRCL calculation 54 ml/min; Estimated Glomerular Filt Rate > 60; Glucose 109 mg/dL (65-110); Potassium 4.2 mmol/L (3.4-5.0); Sodium 136 mmol/L (137-145)
[2022-04-23] MEDS: ASPIRIN 325 MG ENTERIC TABLET PO (08:40)
[2022-04-23] MEDS: SENNA/DOCUSATE SODIUM TABLET 2 TAB PO ×2 (08:41→17:29)
[2022-04-23] MEDS: METOPROLOL TARTRATE 12.5 MG TABLET PO ×2 (08:41→22:01)
[2022-04-23] MEDS: polyethylene glycoL 3350 17 GM POWD.PACK PO (08:44)
--- NOTE | 2022-04-23 09:20 | WPDANESPN ---
Anes - Prog Note Post-Op Date/Time: 04/23/22 09:20 Cardiovascular status: normal Respiratory status: normal Airway patency: baseline Mental status: baseline Post-Op hydration status: normal Vital Signs: Last Vital Signs Temp 36.6 C 04/23/22 05:24 Pulse 64 04/23/22 08:41 Resp 16 04/23/22 05:24 BP 110/45 L 04/23/22 05:24 Pulse Ox 99 04/23/22 05:24 O2 Del Method Room Air 04/23/22 08:14 O2 Flow Rate 2 04/22/22 14:35 Pain Score (VAS): 03/28 I/O: Intake & Output 04/22/22 04/23/22 04/23/22 23:59 07:59 15:59 Intake Total 1110 Output Total 200 Balance 910 Laboratory Tests 04/23/22 06:24 04/23/22 06:24 04/22/22 04/23/22 04/23/22 09:31 06:24 06:24 WBC 15.2 H RBC 3.32 L Hgb 8.5 L Hct 27.5 L MCV 82.8 MCH 25.6 L MCHC 30.9 L RDW 14.2 Plt Count 160 MPV 11.5 H Immature Gran % (Auto) 0.4 Neut % (Auto) 79.1 H Lymph % (Auto) 14.7 L [place] % (Auto) 5.6 Eos % (Auto) 0.1 Baso % (Auto) 0.1 L Lymph # (Auto) 2.22 [place] # (Auto) 0.9 H Eos # (Auto) 0.0 Baso # (Auto) 0.0 Abs Immat Gran (auto) 0.06 H Absolute Neuts (auto) 12.0 H Absolute Nucleated RBC 0.0 Nucleated RBC % 0.0 Sodium 136 L Potassium 4.2 Chloride 106 Carbon Dioxide 28 Anion Gap 2 L BUN 12 Creatinine 0.80 Estim Creat Clear Calc 54 Estimated GFR > 60 Glucose 109 Calcium 7.6 L Blood Type O Positive Antibody Screen Negative Post-procedural complaints: nausea (day of surgery, better today) and vomiting (day of surgery, better today) Patient Feedback: Patient satisfied with anesthetic care.
[2022-04-23] MEDS: ONDANSETRON INJ 4 MG/2 ML VIAL IV PUSH (11:51)
[2022-04-23] MEDS: SODIUM CHLORIDE 0.9% IV 500 ML 999 ML IV CONT ×2 (14:33→15:44)
[2022-04-23 16:06] LABS: Hematocrit 25.7 % (37.0-47.0); Hemoglobin 7.9 g/dL (12.0-15.0); Mean Corpuscular HGB Conc 30.7 g/dl (32-36); Mean Corpuscular Hemoglobin 26.2 pg (26-34); Mean Corpuscular Volume 85.1 fl (80-100); Mean Platelet Volume 11.8 fl (7.4-10.4); Platelet Count Result 155 k/mm3 (150-375); Red Blood Count 3.02 M/mm3 (4.2-5.4); Red Cell Distribution Width 14.5 % (11.5-14.5)
[2022-04-23 16:19] LABS: Anion Gap 3 mmol/L (8-16); Blood Urea Nitrogen 16 mg/dL (7-17); Calcium 7.6 mg/dL (8.4-10.2); Carbon Dioxide 27 mmol/L (22-30); Chloride 105 mmol/L (98-107); Estimated CRCL calculation 54 ml/min; Estimated Glomerular Filt Rate > 60; Glucose 111 mg/dL (65-110); Potassium 3.9 mmol/L (3.4-5.0); Sodium 135 mmol/L (137-145)
--- NOTE | 2022-04-23 16:35 | PM.PNORT ---
Progress Note: A&P Assessment and Plan (1) Right knee DJD: Qualifiers: Osteoarthritis type: primary Qualified Code(s): M17.11 - Unilateral primary osteoarthritis, right knee Code(s): M17.11 - Unilateral primary osteoarthritis, right knee Status: Acute Assessment and Plan: RIGHT TKA POD 1 DOING WELL WITH SOME HYPOTENSION. HER H/H IS STABLE. THIS MAY BNE FROM NARCOTICS MEDS. WE WILL OBSERVE HER OVERNIGHT. MEDICINE CONSULT. Subjective Subjective Date/Time Seen: 04/23/22 16:35 POD 1 DOING WELL. SHE HAS SOME DECREASED BP TODAY. RESPONDING SOMEWHAT TO BOLUS. NO CP OR SOB. NO CALF PAIN Exam Extrem: Other: VSS AFEBRILE DRESSING DRY NV INTACT NEG HOMANS SIGN, CALF SOFT NON TENDER Objective Data Vital Signs Vital Signs: Vital Signs - 24 hr 04/22/22 20:26 04/22/22 20:00 04/23/22 05:24 Temperature 36.2 C L 36.6 C Pulse Rate 59 L 59 L 55 L Respiratory Rate 16 16 16 Blood Pressure 124/72 110/45 L Pulse Oximetry 100 100 99 Oxygen Delivery Room Air 04/23/22 08:14 04/23/22 08:41 04/23/22 14:00 Temperature 36.1 C L Pulse Rate 64 62 Respiratory Rate 16 Blood Pressure 90/43 L Pulse Oximetry 100 Oxygen Delivery Room Air 04/23/22 14:55 04/23/22 15:25 04/23/22 16:32 Temperature Pulse Rate Respiratory Rate Blood Pressure 90/43 L 96/58 L 104/82 Pulse Oximetry Oxygen Delivery Intake/Output Intake/Output: Intake & Output 04/20/22 04/21/22 04/22/22 04/23/22 23:59 23:59 23:59 23:59 Intake Total 1460 512 Output Total 200 Balance 1260 512 Meds/Results Medications: Active Medications Generic Name Dose Route Start Last Admin Trade Name Freq PRN Reason Stop Dose Admin Acetaminophen 500 mg 04/22/22 14:38 Acetaminophen 500 Mg Tablet PO Q6H PRN Pain Aspirin 325 mg 04/22/22 21:00 04/23/22 08:40 Aspirin 325 Mg Enteric Tablet PO 325 mg Q12HR NANCY Administration Citalopram Hydrobromide 20 mg 04/22/22 21:00 04/22/22 20:48 Citalopram Hydrobromide 20 Mg Tablet PO 20 mg HS NANCY Administration Diphenhydramine HCl 25 mg 04/22/22 14:38 Diphenhydramine Hcl Inj 50 Mg/Ml Vial IV PUSH Q6H PRN Itching Ketorolac Tromethamine 15 mg 04/22/22 18:00 04/23/22 11:49 Ketorolac 15 Mg/Ml Vial (*Bkc) IV PUSH 04/23/22 18:01 15 mg Q6HR NANCY Administration Melatonin 5 mg 04/22/22 14:38 Melatonin 5 Mg Tablet PO HS PRN Insomnia Metoprolol Tartrate 12.5 mg 04/22/22 21:00 04/23/22 08:41 Metoprolol Tartrate 12.5 Mg Tablet PO 12.5 mg Q12HR NANCY Administration Naloxone HCl 0.1 mg 04/22/22 14:38 Naloxone Hcl 0.4 Mg/Ml Vial IV PUSH Q2M PRN Opiate Reversal Ondansetron HCl 4 mg 04/22/22 14:38 04/23/22 11:51 Ondansetron Inj 4 Mg/2 Ml Vial IV PUSH 4 mg Q4H PRN Administration Nausea And Vomiting Oxycodone/Acetaminophen 1 tablet 04/22/22 14:38 04/22/22 21:58 Oxycodone/Acetaminophen (*Crx) 5-325 Mg Tablet PO 1 tablet Q4H PRN Administration Pain Rated 4-6 Oxycodone/Acetaminophen 2 tablet 04/22/22 14:38 Oxycodone/Acetaminophen (*Crx) 5-325 Mg Tablet PO Q6H PRN Pain Rated 7-10 Pantoprazole Sodium 40 mg 04/22/22 14:38 Pantoprazole 40 Mg Tablet PO PRN PRN Heartburn Polyethylene Glycol 17 gm 04/23/22 09:00 04/23/22 08:44 Polyethylene Glycol 3350 17 Gm Powd.Pack PO 17 gm QAM NANCY Administration Senna/Docusate Sodium 2 tab 04/22/22 17:00 04/23/22 08:41 Senna/Docusate Sodium Tablet PO 2 tab BID NANCY Administration Zolpidem Tartrate 10 mg 04/22/22 21:00 04/22/22 21:58 Zolpidem Tartrate (*Crx) 5 Mg Tablet PO 10 mg HS NANCY Administration Radiology Results: ITS Impressions Knee X-Ray 04/22/22 13:26 IMPRESSION: Status post right knee arthroplasty Possible very thin 7 mm linear bone fragment overlying anterior aspect of the femoral tibial knee joint Labs
--- NOTE | 2022-04-23 16:38 | PM.IMCN ---
Assessment and Plan Assessment and plan (1) S/P total knee arthroplasty: Code(s): Z96.659 - Presence of unspecified artificial knee joint Status: Acute Assessment and Plan: -there is some drainage on the right knee dressing and Dr. Vargas has assessed the patient I did have the right knee re x-rayed and may consider CT scan. There was a large hematoma to the right knee (2) HTN (hypertension): Code(s): I10 - Essential (primary) hypertension Status: Acute Assessment and Plan: Continue on metoprolol (3) Sleep disorder: Code(s): G47.9 - Sleep disorder, unspecified Status: Acute Assessment and Plan: Continue with Ambien and melatonin question (4) Anemia: Code(s): D64.9 - Anemia, unspecified Status: Acute Assessment and Plan: Patient's H&H continues to drop. The patient has not had any dark stools no hematochezia she said or hematemesis. I will go ahead and start her on Protonix and check her stool for occult blood. The patient has a hematoma to her right knee. Type and crossmatch and infuse when necessary. The patient was given tranexamic acid during surgery. (5) Depression with anxiety: Code(s): F41.8 - Other specified anxiety disorders Status: Acute Assessment and Plan: Continue with Celexa HPI Data of Consult Consult date: 04/23/22 Requesting Physician: Julito Vargas MD Primary Care Provider: Isaias ChungMD Consult Narrative Narrative: Flaquita Hough is a 61 year old female who has been dealing with bilateral knee pain. She had a cortisone injection on 10/05/2021 and gave her proximally 3 months of pain relief. The patient has severe osteoarthritis. Please see operative note. The patient had a right total knee arthroplasty today by Dr. Vargas. Is reported that there was no complications. So on 04/07/2022 her hemoglobin was 11.2. 04/23/2022 her hemoglobin was 8.5 that was 7.9 and now dropping to 7.4. The patient stated she had a peptic ulcer approximately 10 years ago on and was given blood and treated for an ulcer. The patient does have some bloody drainage on her large Band-Aid. Dr. Vargas has seen the patient and has consulted the hospitalist for further recommendation. I spoke with the patient and she has not had any complaints of he med sheets of or hematemesis. The patient stated she has not had a bowel movement 3 days. I explained that she will probably need a blood transfusion. The patient is feeling nauseated and lightheaded. Her blood pressure is 96/58 and she was given a L of fluids. The patient is eating and drinking okay without difficulty. The patient is being admitted to orthopedic physicians and the hospitalist group has been consulted on the date of service of 04/23/2022. Review of Systems Review of Systems: HPI All systems reviewed & are unremarkable except as noted in HPI and below Constitutional: Constitutional: Reports as per HPI and Reports no additional constitutional complaints Eyes: Eyes: Reports as per HPI and Reports no additional eye complaints ENT: Reports system reviewed and no additional complaints, except as documented and Reports Normal hearing present Cardiovascular: Cardiovascular: Reports no additional cardiovascular complaints Respiratory: Respiratory: Reports no additional respiratory complaints and Reports no additional respiratory complaints Gastrointestinal: Gastrointestinal: Reports as per HPI and Reports no additional gastrointestinal complaints Musculoskeletal: Musculoskeletal: Reports no additional musculoskeletal complaints Integumentary/Breasts: Skin/Breast: Reports system reviewed and no additional complaints, except as docu and Reports as per HPI Neurologic: Reports system reviewed and no additional complaints, except as documented, Reports as per HPI and Reports Normal hearing present Psychiatric: Psychiatric: Reports no additional psychiatric compl
[2022-04-23 18:02] LABS: Hematocrit 23.8 % (37.0-47.0); Hemoglobin 7.4 g/dL (12.0-15.0)
--- NOTE | 2022-04-23 18:46 | PC.NURSE ---
Changed dressing per Sam due to scant amount of blood seeping on the outside of the dressing.
[2022-04-23] MEDS: oxyCODONE/ACETAMINOPHEN (*CRX) 5-325 MG TABLET 2 TABLET PO (21:58)
[2022-04-23] MEDS: ZOLPIDEM TARTRATE (*CRX) 5 MG TABLET 10 MG PO (21:59)
[2022-04-23] MEDS: PANTOPRAZOLE SODIUM IV 40 MG VIAL IV PUSH (22:01)
[2022-04-23] MEDS: CITALOPRAM HYDROBROMIDE 20 MG TABLET PO (22:02)
[2022-04-23] MEDS: SODIUM CHLORIDE 0.9% IV 250 ML 30 ML IV CONT (22:14)
[2022-04-24] VITALS (13 sets, daily range): BP systolic 76–172; BP diastolic 48–82; PULSE 59–71; RESP 14–20; TEMP 36.2–36.8; O2SAT 91–100
[2022-04-24 01:45] LABS: Hematocrit 29.5 % (37.0-47.0); Hemoglobin 9.2 g/dL (12.0-15.0)
[2022-04-24] MEDS: oxyCODONE/ACETAMINOPHEN (*CRX) 5-325 MG TABLET 1 TABLET PO ×3 (01:52→21:07)
[2022-04-24 06:24] LABS: Basophils Percent Auto 0.4 % (0.2-1.2); Eosinophils Absolute Auto 0.1 K/mm3 (0-0.3); Eosinophils Percent Auto 1.3 % (0-4.4); Hematocrit 27.2 % (37.0-47.0); Hemoglobin 8.5 g/dL (12.0-15.0); Immature Granulocyte Absolute 0.02 K/mm3 (0.00-0.031); Immature Granulocyte Percent A 0.3 % (0-0.5); Immature Platelet Fraction Pct 9.8 % (0.9-11.2); Lymphocytes Absolute Auto 2.33 K/mm3 (0.9-3.2); Lymphocytes Percent Auto 31.2 % (18.3-44.2); Mean Corpuscular HGB Conc 31.3 g/dl (32-36); Mean Corpuscular Hemoglobin 26.6 pg (26-34); Mean Corpuscular Volume 85.3 fl (80-100); Mean Platelet Volume 11.9 fl (7.4-10.4); Monocytes Absolute Auto 0.7 K/mm3 (0.1-0.6); Monocytes Percent Auto 8.7 % (2.6-8.5); Neutrophils Absolute Auto 4.3 K/mm3 (1.3-6.7); Neutrophils Percent Auto 58.1 % (45.5-73.1); Platelet Count Result 129 k/mm3 (150-375); Red Blood Count 3.19 M/mm3 (4.2-5.4); Red Cell Distribution Width 14.5 % (11.5-14.5); White Blood Count 7.5 K/mm3 (4.5-10.0)
[2022-04-24 06:38] LABS: Lactic Acid Reflex 0.7 mmol/L (0.7-2.0)
--- NOTE | 2022-04-24 07:01 | PC.NURSE ---
Spoke with Courtney about patient BP 76/48 HR 60 maually and hgb dropping. New orders received to give 500 ml NS bolus, give another unit of PRBC and hold ASA.
--- NOTE | 2022-04-24 07:04 | PM.IMPN ---
Progress Note: A&P Assessment and Plan (1) S/P total knee arthroplasty: Qualifiers: Laterality: right Qualified Code(s): Z96.651 - Presence of right artificial knee joint Code(s): Z96.659 - Presence of unspecified artificial knee joint Status: Acute Assessment and Plan: POD2 Right TKA Anemia postop Hgb 7.4, down from 11.2 in March preop. Large hematoma to the right knee noted 04/23 and given 1 unit PRBC on 04/23. Good response post-transfusion of Hbg 9.2 0130 but then dropped to 8.5 at 0600 and patient hypotensive 76/48, HR 60 (patient is on beta-kelley). Hold aspirin and notify Ortho. Bolus 500 cc NS given x1 for hypotension and additional 1 unit PRBC ordered. Pain control, PT/OT, weight bearing status and SCDs per Ortho (2) Anemia: Code(s): D64.9 - Anemia, unspecified Status: Acute Assessment and Plan: Post-op anemia from acute blood loss anemia. H&H dropped as above. MCV and MCH normal limits, MCHC low, RDW not elevated. H/O PUD approximately 10 years ago. She has been treated with Toradol and full-strength aspirin postop. She denies dark stools, hematochezia or hematemesis. s/p 1 unit PRBC 04/23, give additional 1 unit PRBC now. Started protonix 40 mg IV BID on 04/23/22 check fecal occult blood. tranexamic acid 1000 mg IV x2 intraop. Consult GI if fecal occult positive Unable to check iron panel due to recent transfusion. Will initiate ferrous sulfate postop x6-8 weeks. B12 220 and folic acid within normal limits. Start cyanocobalamin 1000 mcg PO daily (3) HTN (hypertension): Qualifiers: Hypertension type: primary hypertension Qualified Code(s): I10 - Essential (primary) hypertension Code(s): I10 - Essential (primary) hypertension Status: Chronic Assessment and Plan: Chronic, now with hypotension, likely secondary to hypovolemia from bleeding. Hold metoprolol for now. Vitals Q4 hours and PRN. Hypotension improved with blood transfusion. Resume metoprolol at home dose with hold parameters for hypotension (4) Sleep disorder: Code(s): G47.9 - Sleep disorder, unspecified Status: Chronic Assessment and Plan: Chronic. Continue ambien, as BP tolerates, and melatonin. (5) Depression with anxiety: Code(s): F41.8 - Other specified anxiety disorders Status: Chronic Assessment and Plan: Continue with Celexa Time Spent With Patient Time: 40 minutes time spent patient assessment, reviewing diagnostics (imaging, labs, vitals), reviewing nursing and specialist documentation, as well as patient and family education. Subjective Date/time seen: 04/24/22 07:04 She c/o pain to her right knee and increased swelling. She is concerned about her low blood counts. She reports fatigue. No chest pain, SOB, palpitations, dizziness, melena, hematochezia, nausea, emesis, abdominal pain or paresthesia. Review of Systems Review of Systems: All systems reviewed & are unremarkable except as noted in HPI and below Exam Narrative: General: No acute distress.?Temp 97.3F oral, HR 60, RR 16, BP 120/55, spO2 91% room air, BMI 24 kg/m2 Mental Status/Psych: Awake, alert and oriented x4 with clear speech. Pleasant and cooperative. Skin: Skin fair, warm, dry and intact without rashes or lesions. Right knee aquacel dressing clean, dry and intact.? HEENT: Normocephalic. Sclera is non-icteric. Pupils equal and round. Oral mucosa pink and moist. Neck: No JVD. Heart: S1 and S2 regular rate and rhythm. No murmurs, gallops, or rubs auscultated. Chest: Respirations even and unlabored. Lung sounds are clear to auscultation without wheezes, rhonchi, or rales. Abdomen: Soft, obese and non-tender to palpation.? Bowel sounds present in all 4 quadrants. No guarding. Extremities:? Nonpitting edema RLE. No ecchymosis or cyanosis. Reduced right knee flexion secondary to pain. Neurological: No focal deficits. Sensation intact all extremiti
[2022-04-24] MEDS: SODIUM CHLORIDE 0.9% IV 500 ML IV CONT (07:08)
--- NOTE | 2022-04-24 07:50 | PC.NURSE ---
Called Dr. Vargas's office and left message with Rocio for Dr. Vargas to return call about this patient when he comes in the office.
--- NOTE | 2022-04-24 08:44 | PCPTNOTE ---
Attempted to see patient for PT, RN advised therapy to wait to see patient due to low blood pressure.
[2022-04-24] MEDS: SENNA/DOCUSATE SODIUM TABLET 2 TAB PO ×2 (08:48→16:49)
[2022-04-24] MEDS: PANTOPRAZOLE SODIUM IV 40 MG VIAL IV PUSH ×2 (08:49→21:07)
[2022-04-24] MEDS: FERROUS SULFATE DRIED 142 MG TABCR PO (08:51)
[2022-04-24] MEDS: polyethylene glycoL 3350 17 GM POWD.PACK PO (08:53)
--- NOTE | 2022-04-24 11:15 | PCPTNOTE ---
Attempted to see patient for PT at this time, however patient was receiving blood transfusion.
[2022-04-24] MEDS: SODIUM CHLORIDE 0.9% IV 250 ML 30 ML IV CONT (11:19)
[2022-04-24] MEDS: oxyCODONE/ACETAMINOPHEN (*CRX) 5-325 MG TABLET 2 TABLET PO (12:46)
--- NOTE | 2022-04-24 14:26 | PCOTNOTE ---
Attempted to see patient this date, however unable due to decreased BP and blood transfusion this am. Unable to see patient this pm due to increased pain. Per PT nurse practitioner physician assistant, patient was very tearful asking if OT can wait until tomorrow.
--- NOTE | 2022-04-24 15:09 | PM.PNORT ---
Progress Note: A&P Assessment and Plan (1) S/P total knee arthroplasty: Qualifiers: Laterality: right Qualified Code(s): Z96.651 - Presence of right artificial knee joint Code(s): Z96.659 - Presence of unspecified artificial knee joint Status: Acute Assessment and Plan: POD 2 DOING WELL WITH POSTOP ANEMIA. SHE HAS IMPROVED HER BLOOD PRESSURE. WILL RECHECK A CBC IN THE MORNING. IF STABLE SHE MAY BE DISCHARGED. Subjective Subjective Date/Time Seen: 04/24/22 15:09 POD 2 WITH POSTOP ANEMIA. SHE HAS BEEN STABLE AFTER BOLUS AND PRBCS TRANSFUSION. NO CALF PAIN. Exam Extrem: Other: VSS AFEBRILE DRESSING WITH MINIMAL POSTOP DRAINAGE. NV INTACT NEG HOMANS SIGN CALF SOFT NON TENDER. Objective Data Vital Signs Vital Signs: Vital Signs - 24 hr 04/23/22 15:25 04/23/22 16:32 04/23/22 16:50 Temperature Pulse Rate Respiratory Rate Blood Pressure 96/58 L 104/82 96/58 L Pulse Oximetry Oxygen Delivery 04/23/22 22:14 04/23/22 20:00 04/23/22 22:29 Temperature 36.9 C 36.6 C Pulse Rate 66 66 64 Respiratory Rate 16 16 16 Blood Pressure 111/51 L 109/55 L Pulse Oximetry 100 100 100 Oxygen Delivery Room Air 04/23/22 23:29 04/24/22 00:29 04/24/22 01:29 Temperature 36.6 C 36.4 C 36.4 C L Pulse Rate 64 63 59 L Respiratory Rate 16 16 16 Blood Pressure 101/53 L 105/54 L 106/52 L Pulse Oximetry 100 98 99 Oxygen Delivery 04/24/22 06:46 04/24/22 08:45 04/24/22 10:10 Temperature 36.3 C L 36.2 C L Pulse Rate 60 60 63 Respiratory Rate 16 20 Blood Pressure 76/48 L 112/78 101/56 L Pulse Oximetry 91 99 Oxygen Delivery 04/24/22 10:28 04/24/22 11:28 04/24/22 12:28 Temperature 36.8 C 36.4 C 36.6 C Pulse Rate 65 64 66 Respiratory Rate 16 18 18 Blood Pressure 112/59 L 125/58 L 137/69 Pulse Oximetry 98 100 100 Oxygen Delivery 04/24/22 13:00 04/24/22 13:55 04/24/22 14:48 Temperature 36.4 C 36.7 C Pulse Rate 68 71 Respiratory Rate 16 18 Blood Pressure 120/55 L 172/80 H 164/82 H Pulse Oximetry 98 100 Oxygen Delivery Intake/Output Intake/Output: Intake & Output 04/21/22 04/22/22 04/23/22 04/24/22 23:59 23:59 23:59 23:59 Intake Total 1460 1512 2396 Output Total 200 Balance 1260 1512 2396 Meds/Results Medications: Active Medications Generic Name Dose Route Start Last Admin Trade Name Freq PRN Reason Stop Dose Admin Acetaminophen 500 mg 04/22/22 14:38 Acetaminophen 500 Mg Tablet PO Q6H PRN Pain Aspirin 325 mg 04/22/22 21:00 04/23/22 19:51 Aspirin 325 Mg Enteric Tablet PO Not Given Q12HR NANCY Citalopram Hydrobromide 20 mg 04/22/22 21:00 04/23/22 22:02 Citalopram Hydrobromide 20 Mg Tablet PO 20 mg HS NANCY Administration Diphenhydramine HCl 25 mg 04/22/22 14:38 Diphenhydramine Hcl Inj 50 Mg/Ml Vial IV PUSH Q6H PRN Itching Ferrous Sulfate 142 mg 04/24/22 08:00 04/24/22 08:51 Ferrous Sulfate Dried 142 Mg Tabcr PO 142 mg DAILY@0800 NANCY Administration Sodium Chloride 250 mls @ 30 mls/hr 04/24/22 07:00 04/24/22 11:19 Normal Saline Iv IV CONT 04/24/22 15:19 30 mls/hr .Q8H20M STA Administration Ketorolac Tromethamine 15 mg 04/22/22 18:00 04/23/22 11:49 Ketorolac 15 Mg/Ml Vial (*Bkc) IV PUSH 15 mg Q6HR NANCY Administration Melatonin 5 mg 04/22/22 14:38 Melatonin 5 Mg Tablet PO HS PRN Insomnia Metoprolol Tartrate 12.5 mg 04/22/22 21:00 04/23/22 22:01 Metoprolol Tartrate 12.5 Mg Tablet PO 12.5 mg Q12HR NANCY Administration Miscellaneous Information 0 each 04/24/22 00:01 Please Clarify Protonix - Two Orders Entered XX 05/24/22 00:00 CLARIFY NANCY Naloxone HCl 0.1 mg 04/22/22 14:38 Naloxone Hcl 0.4 Mg/Ml Vial IV PUSH Q2M PRN Opiate Reversal Ondansetron HCl 4 mg 04/22/22 14:38 04/23/22 11:51 Ondansetron Inj 4 Mg/2 Ml Vial IV PUSH 4 mg Q4H PRN Administration Nausea And Vomiting
[2022-04-24 16:04] LABS: Hematocrit 34.7 % (37.0-47.0); Hemoglobin 11.1 g/dL (12.0-15.0)
[2022-04-24 16:08] LABS: Alanine Aminotransferase 17 U/L (6-35); Albumin Level 3.4 g/dL (3.5-5.1); Alkaline Phosphatase 63 U/L (38-126); Anion Gap 4 mmol/L (8-16); Aspartate Amino Transferase 38 U/L (14-36); Bilirubin,Total 1.1 mg/dL (0.2-1.3); Blood Urea Nitrogen 13 mg/dL (7-17); Calcium 7.7 mg/dL (8.4-10.2); Carbon Dioxide 27 mmol/L (22-30); Chloride 105 mmol/L (98-107); Estimated CRCL calculation 61 ml/min; Estimated Glomerular Filt Rate > 60; Glucose 123 mg/dL (65-110); Potassium 3.5 mmol/L (3.4-5.0); Sodium 136 mmol/L (137-145)
[2022-04-24] MEDS: CELECOXIB 200 MG CAPSULE PO (16:49)
[2022-04-24 17:13] LABS: Folic Acid 4.2 ng/mL (2.76->20)
[2022-04-24] MEDS: ZOLPIDEM TARTRATE (*CRX) 5 MG TABLET 10 MG PO (21:07)
[2022-04-24] MEDS: CITALOPRAM HYDROBROMIDE 20 MG TABLET PO (21:07)
[2022-04-24 23:06] LABS: Hematocrit 29.5 % (37.0-47.0); Hemoglobin 9.6 g/dL (12.0-15.0)
[2022-04-25] VITALS (12 sets, daily range): BP systolic 83–136; BP diastolic 50–101; PULSE 62–79; RESP 12–20; TEMP 36.2–36.9; O2SAT 97–100
--- NOTE | 2022-04-25 00:20 | PC.NURSE ---
Spoke with Dr. Royal at this time to relay recent BP of 97/50 HR 69 with a hgb drop from 11.[address] Royal says to wait to see if the next H&H stabilizes or drops and to discuss with Dr. Vargas when he comes in in the morning.
[2022-04-25 07:01] LABS: Hematocrit 31.7 % (37.0-47.0); Hemoglobin 10.1 g/dL (12.0-15.0); Mean Corpuscular HGB Conc 31.9 g/dl (32-36); Mean Corpuscular Hemoglobin 26.8 pg (26-34); Mean Corpuscular Volume 84.1 fl (80-100); Mean Platelet Volume 12.3 fl (7.4-10.4); Platelet Count Result 134 k/mm3 (150-375); Red Blood Count 3.77 M/mm3 (4.2-5.4); Red Cell Distribution Width 14.9 % (11.5-14.5); White Blood Count 8.9 K/mm3 (4.5-10.0)
[2022-04-25 07:13] LABS: Anion Gap 2 mmol/L (8-16); Blood Urea Nitrogen 12 mg/dL (7-17); Calcium 8.1 mg/dL (8.4-10.2); Carbon Dioxide 29 mmol/L (22-30); Chloride 101 mmol/L (98-107); Estimated CRCL calculation 61 ml/min; Estimated Glomerular Filt Rate > 60; Glucose 94 mg/dL (65-110); Potassium 3.4 mmol/L (3.4-5.0); Sodium 132 mmol/L (137-145)
--- NOTE | 2022-04-25 07:32 | PM.IMPN ---
Progress Note: A&P Assessment and Plan (1) S/P total knee arthroplasty: Qualifiers: Laterality: right Qualified Code(s): Z96.651 - Presence of right artificial knee joint Code(s): Z96.659 - Presence of unspecified artificial knee joint Status: Acute Assessment and Plan: POD3 Right TKA Anemia postop Hgb 7.4, down from 11.2 in March preop. Large hematoma to the right knee noted 04/23 and given 1 unit PRBC on 04/23. Good response post-transfusion of Hbg 9.2 0130 but then dropped to 8.5 at 0600 and patient hypotensive 76/48, HR 60 (patient is on beta-kelley). Hold aspirin and notify Ortho. Bolus 500 cc NS given x1 for hypotension and additional 1 unit PRBC ordered. Pain control, PT/OT, weight bearing status and SCDs per Ortho 04/25 H/H 12/16.7, Hgb up from 9.6 overnight (2) Anemia: Code(s): D64.9 - Anemia, unspecified Status: Acute Assessment and Plan: Post-op anemia from acute blood loss anemia. H&H dropped as above. MCV and MCH normal limits, MCHC low, RDW not elevated. H/O PUD approximately 10 years ago. She has been treated with Toradol and full-strength aspirin postop. She denies dark stools, hematochezia or hematemesis. s/p 1 unit PRBC 04/23, give additional 1 unit PRBC now. Would continue protonix 40 mg once daily while on NSAIDS check fecal occult blood. tranexamic acid 1000 mg IV x2 intraop. Consult GI if fecal occult positive Unable to check iron panel due to recent transfusion. Recommend ferrous sulfate 325 mg by mouth daily for x6-8 weeks. B12 220 and folic acid within normal limits. Continue cyanocobalamin 1000 mcg PO daily at discharge 04/25 c/o dizziness. Check orthostatics x1. Recommend repeating H/H in 1 week. I discussed stool changes and symptoms suggestive of GI bleeding to report or seek care in the ED with the patient and her sons. She verbalized understanding. (3) HTN (hypertension): Qualifiers: Hypertension type: primary hypertension Qualified Code(s): I10 - Essential (primary) hypertension Code(s): I10 - Essential (primary) hypertension Status: Chronic Assessment and Plan: Chronic, now with hypotension, likely secondary to hypovolemia from bleeding. Vitals Q4 hours and PRN. Hypotension improved with blood transfusion. Resumed metoprolol at home dose with hold parameters for hypotension (4) Sleep disorder: Code(s): G47.9 - Sleep disorder, unspecified Status: Chronic Assessment and Plan: Chronic. Continue ambien, as BP tolerates, and melatonin. (5) Depression with anxiety: Code(s): F41.8 - Other specified anxiety disorders Status: Chronic Assessment and Plan: Continue with Celexa (6) B12 deficiency: Code(s): E53.8 - Deficiency of other specified B group vitamins Status: Acute Assessment and Plan: B12 supplement initiated. Plan Thank you for allowing us to care for your patient. Please do not hesitate to call with questions. Time Spent With Patient Time: 35 minutes time spent with patient assessment, patient education, review of labs, vitals and nursing documentation. Subjective Date/time seen: 04/25/22 07:32 She reports her knee pain is a little better today. She has some dizziness and nausea this morning, which she attributes to taking pain medications on an empty stomach. No abdominal pain, chest pain, melena, hematochezia or hematemesis. Review of Systems Review of Systems: All systems reviewed & are unremarkable except as noted in HPI and below Exam Narrative: General: No acute distress.?Temp 98.1F oral, HR 73, RR 16, BP 132/66, spO2 100% room air, BMI 24 kg/m2 Mental Status/Psych: Awake, alert and oriented x4 with clear speech. Pleasant and cooperative. Skin: Skin fair, warm, dry and intact without rashes or lesions. Right knee aquacel dressing clean, dry and intact.? HEENT: Normocephalic. Sclera is non-icteric. Pupils e
[2022-04-25] MEDS: CELECOXIB 200 MG CAPSULE PO ×2 (08:11→16:35)
[2022-04-25] MEDS: METOPROLOL TARTRATE 12.5 MG TABLET PO ×2 (08:11→20:41)
[2022-04-25] MEDS: PANTOPRAZOLE 40 MG TABLET PO ×2 (08:11→20:40)
[2022-04-25] MEDS: FERROUS SULFATE DRIED 142 MG TABCR PO (08:11)
[2022-04-25] MEDS: polyethylene glycoL 3350 17 GM POWD.PACK PO (08:11)
[2022-04-25] MEDS: SENNA/DOCUSATE SODIUM TABLET 2 TAB PO ×2 (08:11→16:35)
[2022-04-25] MEDS: CYANOCOBALAMIN 1,000 MCG TABLET 1000 MCG PO (08:11)
[2022-04-25] MEDS: oxyCODONE/ACETAMINOPHEN (*CRX) 5-325 MG TABLET 2 TABLET PO (08:13)
[2022-04-25] MEDS: MORPHINE SULFATE (*CRX) 2 MG/ML INJ IV PUSH ×2 (11:37→16:34)
[2022-04-25 13:33] LABS: Hematocrit 29.8 % (37.0-47.0); Hemoglobin 9.5 g/dL (12.0-15.0)
[2022-04-25 18:30] LABS: Hematocrit 29.8 % (37.0-47.0); Hemoglobin 9.5 g/dL (12.0-15.0)
[2022-04-25] MEDS: ZOLPIDEM TARTRATE (*CRX) 5 MG TABLET 10 MG PO (20:40)
[2022-04-25] MEDS: CITALOPRAM HYDROBROMIDE 20 MG TABLET PO (20:41)
[2022-04-25] MEDS: oxyCODONE/ACETAMINOPHEN (*CRX) 5-325 MG TABLET 1 TABLET PO (20:41)
[2022-04-25] MEDS: hydrOXYzine pamoate 25 MG CAPSULE 50 MG PO (20:42)
[2022-04-25 23:02] LABS: Hematocrit 28.3 % (37.0-47.0)
[2022-04-26 05:21] VITALS: BP 103/60; PULSE 63; RESP 12; TEMP 36.7; O2SAT 100
[2022-04-26 06:12] LABS: Hematocrit 26.4 % (37.0-47.0); Hemoglobin 8.5 g/dL (12.0-15.0)
[2022-04-26] MEDS: CELECOXIB 200 MG CAPSULE PO (08:15)
[2022-04-26] MEDS: oxyCODONE/ACETAMINOPHEN (*CRX) 5-325 MG TABLET 2 TABLET PO (08:15)
[2022-04-26] MEDS: SENNA/DOCUSATE SODIUM TABLET 2 TAB PO ×2 (08:15→16:33)
[2022-04-26 08:16] VITALS: PULSE 80
[2022-04-26] MEDS: CYANOCOBALAMIN 1,000 MCG TABLET 1000 MCG PO (08:16)
[2022-04-26] MEDS: PANTOPRAZOLE 40 MG TABLET PO ×2 (08:16→20:19)
[2022-04-26] MEDS: METOPROLOL TARTRATE 12.5 MG TABLET PO ×2 (08:16→20:19)
[2022-04-26] MEDS: FERROUS SULFATE DRIED 142 MG TABCR PO (08:16)
[2022-04-26] MEDS: polyethylene glycoL 3350 17 GM POWD.PACK PO (08:21)
--- NOTE | 2022-04-26 09:04 | PCOTNOTE ---
Attempted to see pt for occupational therapy treatment. Pt is currently still finishing her breakfast and is having difficulty staying awake per pt's family due to recent pain medication.
--- NOTE | 2022-04-26 09:30 | PM.IMPN ---
Progress Note: A&P Assessment and Plan (1) S/P total knee arthroplasty: Qualifiers: Laterality: right Qualified Code(s): Z96.651 - Presence of right artificial knee joint Code(s): Z96.659 - Presence of unspecified artificial knee joint Status: Acute Assessment and Plan: POD3 Right TKA Anemia postop Hgb 7.4, down from 11.2 in March preop. Large hematoma to the right knee noted 04/23 and given 1 unit PRBC on 04/23. Good response post-transfusion of Hbg 9.2 0130 but then dropped to 8.5 at 0600 and patient hypotensive 76/48, HR 60 (patient is on beta-kelley). aspirin per Ortho. 04/24 Bolus 500 cc NS given x1 for hypotension and additional 1 unit PRBC ordered. Pain control, PT/OT, weight bearing status and SCDs per Ortho c/o pain with increasing lethargy after percocet. Start scheduled extra-strength tylenol 1000 mg Q8 hours scheduled, celebrex 100 mg BID and PRN oxycodone. continue ice and elevation. (2) Anemia: Code(s): D64.9 - Anemia, unspecified Status: Acute Assessment and Plan: Post-op anemia from acute blood loss anemia. H&H dropped as above. MCV and MCH normal limits, MCHC low, RDW not elevated. H/O PUD approximately 10 years ago. She has been treated with Toradol and full-strength aspirin postop. She denies dark stools, hematochezia or hematemesis. s/p 1 unit PRBC 04/23, give additional 1 unit PRBC now. continue protonix 40 mg once daily while on NSAIDS check fecal occult blood- still pending. tranexamic acid 1000 mg IV x2 intraop. Consult GI if fecal occult positive- still pending. Unable to check iron panel due to recent transfusion. Continue ferrous sulfate 325 mg by mouth daily for x6-8 weeks. B12 220 and folic acid within normal limits. Continue cyanocobalamin 1000 mcg PO daily at discharge 04/25 c/o dizziness. Orthostatics negative I discussed stool changes and symptoms suggestive of GI bleeding to report or seek care in the ED with the patient and her sons. She verbalized understanding. 04/25 H/H 12/16.7, Hgb up from 9.6 overnight; 04/26 Hgb 8.5 to 8.8. BUN:creatinine <30 (3) HTN (hypertension): Qualifiers: Hypertension type: primary hypertension Qualified Code(s): I10 - Essential (primary) hypertension Code(s): I10 - Essential (primary) hypertension Status: Chronic Assessment and Plan: Chronic, now with hypotension, likely secondary to hypovolemia from bleeding. Vitals Q4 hours and PRN. Hypotension improved with blood transfusion. Continue metoprolol at home dose with hold parameters for hypotension (4) Sleep disorder: Code(s): G47.9 - Sleep disorder, unspecified Status: Chronic Assessment and Plan: Chronic. Continue ambien, as BP tolerates, and melatonin. (5) Depression with anxiety: Code(s): F41.8 - Other specified anxiety disorders Status: Chronic Assessment and Plan: Continue with Celexa (6) B12 deficiency: Code(s): E53.8 - Deficiency of other specified B group vitamins Status: Acute Assessment and Plan: B12 supplement initiated. Plan Thank you for allowing us to care for your patient. Please do not hesitate to call with questions. Time Spent With Patient Time: 40 minutes time spent with patient assessment, patient education, review of labs, vitals and nursing documentation. All questions answered to the best of my ability. Subjective Date/time seen: 04/26/22 09:30 She had nausea and dizziness again this morning after taking narcotic pain medication. She had a BM yesterday, but it was not check for occult blood. She and her sons state this was brown and formed. She has continued pain to her right knee, however, nursing reports she was very lethargic and her SBP was 88 after taking pain medications. Review of Systems Review of Systems: All systems reviewed & are unremarkable except as noted in HPI and below Exam Narrative: General: No acu
--- NOTE | 2022-04-26 11:11 | PM.PNORT ---
Progress Note: A&P Assessment and Plan (1) S/P total knee arthroplasty: Qualifiers: Laterality: right Qualified Code(s): Z96.651 - Presence of right artificial knee joint Code(s): Z96.659 - Presence of unspecified artificial knee joint Status: Acute Assessment and Plan: POD 3 IMPROVING SLIGHTLY. WILL CONTINUE CURRENT REGIMEN. WILL MODIFY PAIN MEDS WHICH MAY BE CAUSING LABILITY WITH BP. WILL RESUME ASPIRIN Subjective Subjective Date/Time Seen: 04/26/22 11:11 pod3. PAIN IS IMPROVING SOME WHAT. BLOOD PRESSURE APPEARS TO BE STABLE WITH SOME DECREASE WITH PAIN MEDS. NO CALF PAIN. NO THIGH PAIN Exam Extrem: Other: VSS AFEBRILE DRESSING DRY, KNEE WITH EXPECTED SWELLING AND ECCHYMOSIS. CALF SOFT, THIGH SOFT, NON TENDER, NEG HOMANS SIGN Objective Data Vital Signs Vital Signs: Vital Signs - 24 hr 04/25/22 11:24 04/25/22 11:24 04/25/22 12:38 Temperature 36.2 C L 36.2 C L 36.3 C L Pulse Rate 66 66 62 Respiratory Rate 20 20 20 Blood Pressure 108/66 101/63 111/65 Pulse Oximetry 100 100 99 Oxygen Delivery 04/25/22 16:51 04/25/22 21:00 04/25/22 20:00 Temperature 36.5 C 36.9 C Pulse Rate 67 79 79 Respiratory Rate 14 18 18 Blood Pressure 136/63 116/101 H Pulse Oximetry 100 100 Oxygen Delivery Room Air 04/26/22 05:21 04/26/22 08:16 04/26/22 08:15 Temperature 36.7 C Pulse Rate 63 80 Respiratory Rate 12 Blood Pressure 103/60 Pulse Oximetry 100 Oxygen Delivery Room Air Intake/Output Intake/Output: Intake & Output 04/23/22 04/24/22 04/25/22 04/26/22 23:59 23:59 23:59 23:59 Intake Total 1512 2976 1640 290 Balance 1512 2976 1640 290 Meds/Results Medications: Active Medications Generic Name Dose Route Start Last Admin Trade Name Freq PRN Reason Stop Dose Admin Acetaminophen 1,000 mg 04/26/22 14:00 Acetaminophen 500 Mg Tablet PO Q8HR [facility] Aspirin 325 mg 04/22/22 21:00 04/23/22 19:51 Aspirin 325 Mg Enteric Tablet PO Not Given Q12HR [facility] Celecoxib 100 mg 04/26/22 17:00 Celecoxib 100 Mg Capsule PO BIDWM [facility] Citalopram Hydrobromide 20 mg 04/22/22 21:00 04/25/22 20:41 Citalopram Hydrobromide 20 Mg Tablet PO 20 mg HS [facility] Administration Cyanocobalamin 1,000 mcg 04/25/22 09:00 04/26/22 08:16 Cyanocobalamin 1,000 Mcg Tablet PO 1,000 mcg QAM [facility] Administration Diazepam 5 mg 04/24/22 15:52 Diazepam (*Crx) 5 Mg Tablet PO BID PRN Spasms Diphenhydramine HCl 25 mg 04/22/22 14:38 Diphenhydramine Hcl Inj 50 Mg/Ml Vial IV PUSH Q6H PRN Itching Ferrous Sulfate 142 mg 04/24/22 08:00 04/26/22 08:16 Ferrous Sulfate Dried 142 Mg Tabcr PO 142 mg DAILY@0800 [facility] Administration Hydroxyzine Pamoate 50 mg 04/24/22 16:15 04/25/22 20:42 Hydroxyzine Pamoate 25 Mg Capsule PO 50 mg Q6HR PRN Administration moderate muscle/joint pain Hydroxyzine Pamoate 100 mg 04/24/22 16:15 Hydroxyzine Pamoate 25 Mg Capsule PO Q6HR PRN severe Muscle/Joint pain Melatonin 5 mg 04/22/22 14:38 Melatonin 5 Mg Tablet PO HS PRN Insomnia Metoprolol Tartrate 12.5 mg 04/22/22 21:00 04/26/22 08:16 Metoprolol Tartrate 12.5 Mg Tablet PO 12.5 mg Q12HR [facility] Administration Morphine Sulfate 2 mg 04/24/22 15:53 04/25/22 16:34 Morphine Sulfate (*Crx) 2 Mg/Ml Inj IV PUSH 2 mg Q3HR PRN Administration Breakthrough Pain Naloxone HCl 0.1 mg 04/22/22 14:38 Naloxone Hcl 0.4 Mg/Ml Vial IV PUSH Q2M PRN Opiate Reversal Ondansetron HCl 4 mg 04/22/22 14:38 04/23/22 11:51 Ondansetron Inj 4 Mg/2 Ml Vial IV PUSH 4 mg Q4H PRN Administration Nausea And Vomiting Oxycodone HCl 5 mg 04/26/22 09:40 Oxycodone Hcl (*Crx) 5 Mg Tab Ir PO Q4H PRN Pain Rated 7-10 Pantoprazole Sodium 40 mg 04/25/22 09:00 04/26/22 08:16 Pantoprazole 40 Mg Tablet PO 40 mg Q12HR [facility] Administration Polyethylene Glycol
[2022-04-26 11:37] LABS: Hematocrit 28.4 % (37.0-47.0); Hemoglobin 8.8 g/dL (12.0-15.0)
[2022-04-26] MEDS: ASPIRIN 325 MG ENTERIC TABLET PO ×2 (11:56→20:19)
[2022-04-26] MEDS: ACETAMINOPHEN 500 MG TABLET 1000 MG PO ×2 (13:49→20:19)
[2022-04-26 14:00] VITALS: BP 104/72; PULSE 62; RESP 16; TEMP 36.2; O2SAT 100
[2022-04-26] MEDS: CELECOXIB 100 MG CAPSULE PO (16:33)
[2022-04-26] MEDS: hydrOXYzine pamoate 25 MG CAPSULE 50 MG PO (16:33)
[2022-04-26 20:19] VITALS: PULSE 67
[2022-04-26] MEDS: CITALOPRAM HYDROBROMIDE 20 MG TABLET PO (20:20)
[2022-04-26] MEDS: ZOLPIDEM TARTRATE (*CRX) 5 MG TABLET 10 MG PO (20:22)
[2022-04-26 21:28] VITALS: BP 145/75; PULSE 67; RESP 18; TEMP 36.4; O2SAT 100
--- NOTE | 2022-04-27 03:50 | PC.NURSE ---
Daylight Savings Time For Daylight Savings Time Ending in the Fall - Clocks are moved back. For Daylight Savings Time Beginning in the Spring - Clocks are moved ahead. For [facility], the time of change occurs at 0200 hrs. Time is taken from the cocktail server. This entry on the patient's chart recognizes the change in time reflected during documentation. Example: 2 entries for vital signs may be charted for 0200 hrs.
[2022-04-27] MEDS: ACETAMINOPHEN 500 MG TABLET 1000 MG PO ×3 (05:36→20:35)
[2022-04-27 06:00] VITALS: BP 113/67; PULSE 76; RESP 16; TEMP 36.2; O2SAT 100
[2022-04-27 06:15] LABS: Hematocrit 28.6 % (37.0-47.0); Hemoglobin 9.1 g/dL (12.0-15.0)
[2022-04-27 06:29] LABS: Anion Gap -1 mmol/L (8-16); Blood Urea Nitrogen 13 mg/dL (7-17); Calcium 7.9 mg/dL (8.4-10.2); Carbon Dioxide 31 mmol/L (22-30); Chloride 102 mmol/L (98-107); Estimated CRCL calculation 48 ml/min; Estimated Glomerular Filt Rate > 60; Glucose 103 mg/dL (65-110); Sodium 132 mmol/L (137-145)
[2022-04-27 09:41] VITALS: PULSE 80
[2022-04-27] MEDS: METOPROLOL TARTRATE 12.5 MG TABLET PO ×2 (09:41→20:35)
[2022-04-27] MEDS: FERROUS SULFATE DRIED 142 MG TABCR PO (09:41)
[2022-04-27] MEDS: CELECOXIB 100 MG CAPSULE PO (09:42)
[2022-04-27] MEDS: hydrOXYzine pamoate 25 MG CAPSULE 50 MG PO (09:42)
[2022-04-27] MEDS: CYANOCOBALAMIN 1,000 MCG TABLET 1000 MCG PO (09:42)
[2022-04-27] MEDS: SENNA/DOCUSATE SODIUM TABLET 2 TAB PO ×2 (09:42→16:56)
[2022-04-27] MEDS: polyethylene glycoL 3350 17 GM POWD.PACK PO (09:42)
[2022-04-27] MEDS: PANTOPRAZOLE 40 MG TABLET PO (09:42)
[2022-04-27] MEDS: ASPIRIN 325 MG ENTERIC TABLET PO (09:42)
[2022-04-27 11:15] LABS: IFOB Positive Control Positive; Immunochemical Fecal Occult Bl Positive (N)
--- NOTE | 2022-04-27 12:09 | PM.IMPN ---
Progress Note: A&P Assessment and Plan (1) S/P total knee arthroplasty: Qualifiers: Laterality: right Qualified Code(s): Z96.651 - Presence of right artificial knee joint Code(s): Z96.659 - Presence of unspecified artificial knee joint Status: Acute Assessment and Plan: POD3 Right TKA Anemia postop Hgb 7.4, down from 11.2 in March preop. Large hematoma to the right knee noted 04/23 and given 1 unit PRBC on 04/23. Good response post-transfusion of Hbg 9.2 0130 but then dropped to 8.5 at 0600 and patient hypotensive 76/48, HR 60 (patient is on beta-kelley). aspirin per Ortho. 04/24 Bolus 500 cc NS given x1 for hypotension and additional 1 unit PRBC ordered. Pain control, PT/OT, weight bearing status and SCDs per Ortho c/o pain with increasing lethargy after percocet. Start scheduled extra-strength tylenol 1000 mg Q8 hours scheduled, PRN oxycodone. continue ice and elevation. 04/27 Celebrex and aspirin stopped. (2) Anemia: Qualifiers: Anemia type: other cause Code(s): D64.9 - Anemia, unspecified Status: Acute Assessment and Plan: Post-op anemia from acute blood loss anemia. H&H dropped as above. MCV and MCH normal limits, MCHC low, RDW not elevated. H/O PUD approximately 10 years ago. She has been treated with Toradol and full-strength aspirin postop. She denies dark stools, hematochezia or hematemesis. s/p 1 unit PRBC 04/23, give additional 1 unit PRBC now. PPIs started 04/24 tranexamic acid 1000 mg IV x2 intraop. Unable to check iron panel due to recent transfusion. Continue ferrous sulfate 325 mg by mouth daily for x6-8 weeks. B12 220 and folic acid within normal limits. Continue cyanocobalamin 1000 mcg PO daily at discharge 04/25 c/o dizziness. Orthostatics negative I discussed stool changes and symptoms suggestive of GI bleeding to report or seek care in the ED with the patient and her sons. She verbalized understanding. 04/25 H/H 12/16.7, Hgb up from 9.6 overnight; 04/26 Hgb 8.5 to 8.8. BUN:creatinine <30 04/27 Hgb 9.1, FOBT positive. Will consult GI for further recommendations on endoscopy. holding aspirin, anticoagulation and other NSAIDs until evaluated by GI. Continue PPI and change back to IV BID. Will make NPO except meds after midnight in case GI would like to perform Endoscopy. (3) HTN (hypertension): Qualifiers: Hypertension type: primary hypertension Qualified Code(s): I10 - Essential (primary) hypertension Code(s): I10 - Essential (primary) hypertension Status: Chronic Assessment and Plan: Chronic, now with hypotension, likely secondary to hypovolemia from bleeding. Vitals Q4 hours and PRN. BP currently stable. Continue metoprolol at home dose with hold parameters for hypotension (4) Sleep disorder: Code(s): G47.9 - Sleep disorder, unspecified Status: Chronic Assessment and Plan: Chronic. Continue ambien, as BP tolerates, and melatonin. (5) Depression with anxiety: Code(s): F41.8 - Other specified anxiety disorders Status: Chronic Assessment and Plan: Continue with Celexa (6) B12 deficiency: Code(s): E53.8 - Deficiency of other specified B group vitamins Status: Acute Assessment and Plan: B12 supplement initiated. Plan Thank you for allowing us to care for your patient. Please do not hesitate to call with questions. Time Spent With Patient Time: 25 minutes time spent with patient assessment, patient education, review of labs, vitals and nursing documentation. All questions answered to the best of my ability. Subjective Date/time seen: 04/27/22 12:09 She's working with PT and reports significant pain. Stool occult was positive today. No new complaints. Review of Systems Review of Systems: All systems reviewed & are unremarkable except as noted in HPI and below Exam Narrative: General: No acute distress.?tired appearing. Mental Status
--- NOTE | 2022-04-27 12:51 | PM.PNORT ---
Progress Note: A&P Assessment and Plan (1) Anemia: Qualifiers: Anemia type: unspecified type Qualified Code(s): D64.9 - Anemia, unspecified Code(s): D64.9 - Anemia, unspecified Status: Acute Assessment and Plan: Guaiac-positive stool. History of duodenal ulcer. Hold aspirin. (2) S/P total knee arthroplasty: Qualifiers: Laterality: right Qualified Code(s): Z96.651 - Presence of right artificial knee joint Code(s): Z96.659 - Presence of unspecified artificial knee joint Status: Acute Assessment and Plan: Postoperative day 5. Right total knee arthroplasty. Still with significant pain and slow to respond to therapy. Continue pain control, up as tolerated. Continue therapy. Continue to monitor hemoglobin and blood pressure. Subjective Subjective Date/Time Seen: 04/27/22 12:51 Post Op day: 5 Principal diagnosis: RT TKA Interval history: Patient awake and alert. Still significant pain right knee with movement. Also with low-back pain and guaiac-positive stool. Exam Const: General: comfortable; No acute distress Resp: Effort & Inspection: normal respiratory effort and no audible wheezes Cardio: Rate: regular rate Extrem: Right lower extremity: lower leg ( Negative Homans sign), ankle Details: normal ROM ( dorsiflexion and plantar flexion intact) and foot Details: vascular exam Details: dorsalis pedis pulse present and normal capillary refill, tendon exam Details: active flexion normal and active extension normal and motor-sensory exam Details: light-touch normal Location: in all toes; no edema Left lower extremity: normal to inspection, ankle Details: normal ROM and foot Details: vascular exam Details: dorsalis pedis pulse present and normal capillary refill and motor-sensory exam light-touch normal in all toes; no edema Other: Right knee with swelling. Ecchymosis post surgery. Negative Homans sign. Moves all toes, good sensation to touch and good capillary refill. Objective Data Vital Signs Vital Signs: Vital Signs - 24 hr 04/26/22 14:00 04/26/22 20:19 04/26/22 21:28 Temperature 97.2 F L 97.6 F Pulse Rate 62 67 67 Respiratory Rate 16 18 Blood Pressure 104/72 145/75 H Pulse Oximetry 100 100 Oxygen Delivery 04/26/22 20:00 04/27/22 06:00 04/27/22 09:00 Temperature 97.1 F L Pulse Rate 76 Respiratory Rate 16 Blood Pressure 113/67 Pulse Oximetry 100 Oxygen Delivery Room Air Room Air 04/27/22 09:41 Temperature Pulse Rate 80 Respiratory Rate Blood Pressure Pulse Oximetry Oxygen Delivery Intake/Output Intake/Output: Intake & Output 04/24/22 04/25/22 04/26/22 04/28/22 23:59 23:59 23:59 00:59 Intake Total 2976 1640 1020 790 Balance 2976 1640 1020 790 Meds/Results Medications: Active Medications Generic Name Dose Route Start Last Admin Trade Name Freq PRN Reason Stop Dose Admin Acetaminophen 1,000 mg 04/26/22 14:00 04/27/22 05:36 Acetaminophen 500 Mg Tablet PO 1,000 mg Q8HR [facility] Administration Citalopram Hydrobromide 20 mg 04/22/22 21:00 04/26/22 20:20 Citalopram Hydrobromide 20 Mg Tablet PO 20 mg HS [facility] Administration Cyanocobalamin 1,000 mcg 04/25/22 09:00 04/27/22 09:42 Cyanocobalamin 1,000 Mcg Tablet PO 1,000 mcg QAM [facility] Administration Diazepam 5 mg 04/24/22 15:52 Diazepam (*Crx) 5 Mg Tablet PO BID PRN Spasms Diphenhydramine HCl 25 mg 04/22/22 14:38 Diphenhydramine Hcl Inj 50 Mg/Ml Vial IV PUSH Q6H PRN Itching Ferrous Sulfate 142 mg 04/24/22 08:00 04/27/22 09:41 Ferrous Sulfate Dried 142 Mg Tabcr PO 142 mg DAILY@0800 [facility] Administration Hydroxyzine Pamoate 50 mg 04/24/22 16:15 04/27/22 09:42 Hydroxyzine Pamoate 25 Mg Capsule PO 50 mg Q6HR PRN Administration moderate muscle/joint pain Hydroxyzine Pamoate 100 mg 04/24/22 16:15 Hydroxyzine Pamoate 25 Mg Capsule PO Q6HR PRN
[2022-04-27 14:00] VITALS: BP 119/59; PULSE 67; RESP 18; TEMP 36.6; O2SAT 79
[2022-04-27 16:01] VITALS: O2SAT 97
[2022-04-27 20:35] VITALS: PULSE 67
[2022-04-27] MEDS: ZOLPIDEM TARTRATE (*CRX) 5 MG TABLET 10 MG PO (20:35)
[2022-04-27] MEDS: CITALOPRAM HYDROBROMIDE 20 MG TABLET PO (20:35)
[2022-04-27] MEDS: PANTOPRAZOLE SODIUM IV 40 MG VIAL IV PUSH (20:36)
[2022-04-27 21:47] VITALS: BP 152/69; PULSE 67; RESP 16; TEMP 36.6; O2SAT 100
[2022-04-28] VITALS (7 sets, daily range): BP systolic 101–176; BP diastolic 56–74; PULSE 64–70; RESP 12–16; TEMP 36.2–36.9; O2SAT 98–100
[2022-04-28] MEDS: oxyCODONE HCL (*CRX) 5 MG TAB IR PO ×4 (00:10→21:17)
[2022-04-28 06:46] LABS: Hematocrit 28.8 % (37.0-47.0); Hemoglobin 9.2 g/dL (12.0-15.0); INR 1.1; Mean Corpuscular HGB Conc 31.9 g/dl (32-36); Mean Corpuscular Hemoglobin 27.5 pg (26-34); Platelet Count Result 209 k/mm3 (150-375); Prothrombin Time 13.3 Seconds (11.1-14.7); Red Blood Count 3.35 M/mm3 (4.2-5.4); Red Cell Distribution Width 15.2 % (11.5-14.5); White Blood Count 5.3 K/mm3 (4.5-10.0)
[2022-04-28 06:47] LABS: Partial Thromboplastin Time 40.8 SECONDS (22.3-36.8)
[2022-04-28 06:48] LABS: Alanine Aminotransferase 42 U/L (6-35); Alkaline Phosphatase 73 U/L (38-126); Anion Gap 0 mmol/L (8-16); Aspartate Amino Transferase 58 U/L (14-36); Blood Urea Nitrogen 11 mg/dL (7-17); Calcium 7.9 mg/dL (8.4-10.2); Carbon Dioxide 30 mmol/L (22-30); Chloride 107 mmol/L (98-107); Estimated CRCL calculation 70 ml/min; Estimated Glomerular Filt Rate > 60; Glucose 97 mg/dL (65-110); Potassium 4.3 mmol/L (3.4-5.0); Sodium 137 mmol/L (137-145)
[2022-04-28] MEDS: PANTOPRAZOLE SODIUM IV 40 MG VIAL IV PUSH ×2 (08:29→21:18)
[2022-04-28] MEDS: FERROUS SULFATE DRIED 142 MG TABCR PO (08:29)
[2022-04-28] MEDS: METOPROLOL TARTRATE 12.5 MG TABLET PO ×2 (08:29→21:18)
[2022-04-28] MEDS: CYANOCOBALAMIN 1,000 MCG TABLET 1000 MCG PO (08:29)
--- NOTE | 2022-04-28 10:17 | PM.PNORT ---
Progress Note: A&P Assessment and Plan (1) Anemia: Qualifiers: Anemia type: other cause Code(s): D64.9 - Anemia, unspecified Status: Acute Assessment and Plan: HgB 9.2. Positive guiac stool. GI consulted by medicine team. Awaiting recommendations at this time. Patient is currently NPO for possible GI procedure. (2) S/P total knee arthroplasty: Qualifiers: Laterality: right Qualified Code(s): Z96.651 - Presence of right artificial knee joint Code(s): Z96.659 - Presence of unspecified artificial knee joint Status: Acute Assessment and Plan: POD #6 : Right TKA Continue PT/OT. WBAT. Walker. HIGH FALL RISK. Continue pain control. Ice knee. Protect skin. DVT prophylaxis on HOLD due to anemia/positive guaiac, GI consult pending. SCDs. Incentive Spirometry Use reviewed. Monitor Dressing. Change prior to discharge. Bowel Regimen. Dispo: Home with Home Health pending progress with PT/OT (3) Guaiac positive stools: Code(s): R19.5 - Other fecal abnormalities Status: Acute Assessment and Plan: GI consult pending. Plan Reviewed assessment, labs, pending consult and uncontrolled right knee pain with attending MD and patient's surgeon, Dr. Vargas. Requested Dr. Vargas evaluate patient today as well due to limitations with lower extremity extension and pain which patient feels is uncontrolled. Dr. Vargas aware. Subjective Subjective Date/Time Seen: 04/28/22 10:17 Post Op day: 6 Interval history: POD #6: Right TKA Patient sitting up in the chair at the time of exam. Complains of uncontrolled pain of the right knee. Difficulty with bending/straightening. Pain when sitting on the commode without having her leg supported. Limitations with lower leg extension. Awaiting GI consult. Review of Systems Constitutional: Constitutional: Denies chills, Denies fever(s), Denies night sweats and Denies weakness Cardiovascular: Cardiovascular: Reports no additional cardiovascular complaints Respiratory: Respiratory: Reports no additional respiratory complaints Gastrointestinal: Gastrointestinal: Reports as per HPI Genitourinary: Genitourinary: Reports no additional female genitourinary complaints Musculoskeletal: Musculoskeletal: Reports as per HPI, Reports arthralgias, Reports joint swelling, Reports limited range of motion and Denies tingling Exam Const: General: comfortable and no acute distress Resp: Effort & Inspection: normal respiratory effort Cardio: Rate: regular rate Rhythm: regular rhythm GI: GI Palp: Yes Soft to palpation Skin: General skin exam: wounds noted Wounds: wounds noted Other: Dressing right knee c/d/i Neuro: Cognition (Neuro): normal cognition Other: NV intact. Moves toes. Sensation intact to light touch. +ankle dorsiflexion/plantarflexion. Extrem: Right lower extremity: normal to inspection, knee Details: tenderness (diffuse, mild ) Location: of the patella, swelling (diffuse, consistent with surgical intervention ), abnormal ROM (minimal lower leg extension- guarding due to pain ) Details: pain with active ROM during Details: in extension and in flexion, pain with passive ROM during Details: in extension and in flexion and with range as follows (limited due to recent surgical intervention ) and ecchymosis (posterior knee, upper thigh, lower leg ), lower leg (Negative Lior's Sign ) Details: normal to inspection; no erythema and no tenderness, ankle (+ankle dorsiflexion/plantarflexion ) Details: normal to inspection, no edema and normal ROM; no tenderness, no swelling and no ecchymosis and foot Details: normal capillary refill, normal to inspection, vascular exam Details: dorsalis pedis pulse present and motor-sensory exam Details: light-touch normal; no tenderness Psych: Mental Status: mental status grossly normal Objective Data Vital Signs Vital Signs: Vital Signs - 24 hr 04/27/22 14:00 04/27/22
[2022-04-28] MEDS: ACETAMINOPHEN 500 MG TABLET 1000 MG PO ×2 (13:58→21:18)
--- NOTE | 2022-04-28 14:44 | PM.IMPN ---
Progress Note: A&P Assessment and Plan (1) S/P total knee arthroplasty: Qualifiers: Laterality: right Qualified Code(s): Z96.651 - Presence of right artificial knee joint Code(s): Z96.659 - Presence of unspecified artificial knee joint Status: Acute Assessment and Plan: POD3 Right TKA Anemia postop Hgb 7.4, down from 11.2 in March preop. Large hematoma to the right knee noted 04/23 and given 1 unit PRBC on 04/23. Good response post-transfusion of Hbg 9.2 0130 but then dropped to 8.5 at 0600 and patient hypotensive 76/48, HR 60 (patient is on beta-kelley). aspirin per Ortho. 04/24 Bolus 500 cc NS given x1 for hypotension and additional 1 unit PRBC ordered. Pain control, PT/OT, weight bearing status and SCDs per Ortho c/o pain with increasing lethargy after percocet. Start scheduled extra-strength tylenol 1000 mg Q8 hours scheduled, PRN oxycodone. continue ice and elevation. 04/27 Celebrex and aspirin stopped. (2) Anemia: Qualifiers: Anemia type: other cause Code(s): D64.9 - Anemia, unspecified Status: Acute Assessment and Plan: Post-op anemia from acute blood loss anemia. H&H dropped as above. MCV and MCH normal limits, MCHC low, RDW not elevated. H/O PUD approximately 10 years ago. She has been treated with Toradol and full-strength aspirin postop. She denies dark stools, hematochezia or hematemesis. s/p 1 unit PRBC 04/23, give additional 1 unit PRBC now. PPIs started 04/24 tranexamic acid 1000 mg IV x2 intraop. Unable to check iron panel due to recent transfusion. Continue ferrous sulfate 325 mg by mouth daily for x6-8 weeks. B12 220 and folic acid within normal limits. Continue cyanocobalamin 1000 mcg PO daily at discharge 04/25 c/o dizziness. Orthostatics negative I discussed stool changes and symptoms suggestive of GI bleeding to report or seek care in the ED with the patient and her sons. She verbalized understanding. 04/25 H/H 12/16.7, Hgb up from 9.6 overnight; 04/26 Hgb 8.5 to 8.8. BUN:creatinine <30 04/27 Hgb 9.1, FOBT positive. Will consult GI for further recommendations on endoscopy. holding aspirin, anticoagulation and other NSAIDs until evaluated by GI. Continue PPI and change back to IV BID. Will make NPO except meds after midnight in case GI would like to perform Endoscopy. 04/28/22 Hgb 9 and stable from yesterday. Awaiting GI evaluation. (3) HTN (hypertension): Qualifiers: Hypertension type: primary hypertension Qualified Code(s): I10 - Essential (primary) hypertension Code(s): I10 - Essential (primary) hypertension Status: Chronic Assessment and Plan: Chronic, now with hypotension, likely secondary to hypovolemia from bleeding. BP currently stable. Continue metoprolol at home dose with hold parameters for hypotension (4) Sleep disorder: Code(s): G47.9 - Sleep disorder, unspecified Status: Chronic Assessment and Plan: Chronic. Continue ambien, as BP tolerates, and melatonin. (5) Depression with anxiety: Code(s): F41.8 - Other specified anxiety disorders Status: Chronic Assessment and Plan: Continue with Celexa (6) B12 deficiency: Code(s): E53.8 - Deficiency of other specified B group vitamins Status: Acute Assessment and Plan: B12 supplement initiated. Time Spent With Patient Time with patient: 15 - 25 minutes Subjective Date/time seen: 04/28/22 14:44 Interval history: She is still with a lot of pain, that seems worse today per patient and family. She has notice more bruising to her right leg, especially to the back of her thigh and knee. She is awaiting GI evaluation. Exam Narrative: General: No acute distress.?tired appearing. Mental Status/Psych: Awake, alert and oriented x4 with clear speech. cooperative. Skin: Skin fair, warm, dry. Right knee aquacel dressing clean, dry and intact.?Ecchymosis and yellowish hue RLE. HEENT: Oral mucosa
--- NOTE | 2022-04-28 15:25 | WPDGICN ---
Assessment and Plan Assessment and plan (1) Acute blood loss anemia: Code(s): D62 - Acute posthemorrhagic anemia Status: Acute Assessment and Plan: could be from knee surgery but she has known history of duodenal ulcer and found occult blood in stool will proceed with egd in am to assess she had colonoscopy about 2 years ago (2) Guaiac positive stools: Code(s): R19.5 - Other fecal abnormalities Status: Acute Assessment and Plan: egd tomorrow iv protonix for now (3) Right knee DJD: Qualifiers: Osteoarthritis type: primary Qualified Code(s): M17.11 - Unilateral primary osteoarthritis, right knee Code(s): M17.11 - Unilateral primary osteoarthritis, right knee Status: Acute Assessment and Plan: recent surgery, knee is swollen- ultrasound was ordered (4) Nausea: Code(s): R11.0 - Nausea Status: Acute Assessment and Plan: monitor (5) S/P total knee arthroplasty: Qualifiers: Laterality: right Qualified Code(s): Z96.651 - Presence of right artificial knee joint Code(s): Z96.659 - Presence of unspecified artificial knee joint Status: Acute GI Consult Note Consult date/time: 04/28/22 15:25 Reason for consult: fobt +, acute blood loss anemia HPI: Flaquita Hough is a 61 year old female with chronic knee pain and OA that failed medical treatment and finally underwent right total knee arthroplast by Dr. Vargas few days ago.? Noted that her hemoglobin slowly has been dropping from 11.2 to 7.4, finally received blood transfusion. Family member who is a dentist at bedside, she says that about 10 years ago had bleeding duodenal ulcer that required EGD and blood transfusion after she had melena. She is not taking ppi in daily basis and just recently started on aspirin for dvt prophylaxis after knee surgery. She had colonoscopy 2 years ago. Occult blood in stool is positive. Also has been nauseous.? Review of Systems Constitutional: Constitutional: Denies chills and Reports fatigue Eyes: Eyes: Denies blurry vision ENT: Reports Normal hearing present Cardiovascular: Cardiovascular: Denies chest pain Respiratory: Respiratory: Denies cough Gastrointestinal: Gastrointestinal: Reports nausea Genitourinary: Genitourinary: Denies hematuria Musculoskeletal: Musculoskeletal: Reports arthralgias Integumentary/Breasts: Skin/Breast: Denies rash Neurologic: Denies Abnormal speech present Psychiatric: Psychiatric: Denies behavioral changes [facility] Past Medical History Medical History (Updated 04/28/22 @ 15:36 by Chavez Carrero MD) Acute blood loss anemia Anemia Arthritis Bilateral knee pain Chronic headaches Degenerative joint disease of knee Depression with anxiety Frequency of urination Hearing loss History of angiography HTN (hypertension) Knee effusion Left knee DJD Left knee pain Nausea Right knee DJD Right knee pain Seasonal allergies Sleep disorder Stomach ulcer Surgical History Surgical History (Updated 04/24/22 @ 07:28 by Courtney Victor APRN) H/O esophagogastroduodenoscopy S/P total knee arthroplasty Family History Family History Father Hypertension, Onset Age: 83 Family history of cardiovascular disease, Onset Age: 82 Mother Hypertension, Onset Age: 65 Other Arthritis Social History Social History (Updated 04/23/22 @ 18:21 by Maria G Fatima NP) Social History: The patient has 4 children. She is a homemaker. She lives with her . Code status full code Smoking status: Never smoker Second hand tobacco smoke exposure: No Alcohol intake: never Substance use: never Lack of Transportation: No Lack of Food: Never True Current Housing: I Have Housing Concerned About Future Housing: No Difficulty Paying Gas/Electric Bills: No Difficulty Paying f
[2022-04-28] MEDS: CITALOPRAM HYDROBROMIDE 20 MG TABLET PO (21:18)
[2022-04-28] MEDS: hydrOXYzine pamoate 25 MG CAPSULE 50 MG PO (21:18)
[2022-04-28] MEDS: ZOLPIDEM TARTRATE (*CRX) 5 MG TABLET 10 MG PO (21:18)
[2022-04-29] VITALS (10 sets, daily range): BP systolic 99–149; BP diastolic 55–88; PULSE 60–88; RESP 12–20; TEMP 36–37.1; O2SAT 98–100
[2022-04-29] MEDS: ACETAMINOPHEN 500 MG TABLET 1000 MG PO ×3 (05:15→22:25)
[2022-04-29] MEDS: oxyCODONE HCL (*CRX) 5 MG TAB IR PO ×4 (05:15→22:26)
[2022-04-29] MEDS: METOPROLOL TARTRATE 12.5 MG TABLET PO ×2 (08:16→22:25)
[2022-04-29] MEDS: PANTOPRAZOLE SODIUM IV 40 MG VIAL IV PUSH (08:16)
--- NOTE | 2022-04-29 10:15 | PCOTNOTE ---
Attempted to Patient at this time. Patient being transferred down to GI, having an endoscopy done.
[2022-04-29] MEDS: LACTATED RINGERS 1,000 ML 150 ML IV CONT (10:48)
--- NOTE | 2022-04-29 11:01 | SUR.PREOP ---
Per Dr. Bolivar no need for antibiotics before patient goes back for procedure.
--- NOTE | 2022-04-29 11:06 | WPDANESEPPF ---
Anes - Initial Pre Proc Eval Procedure: Operation Date: 04/22/22 11:00 Proposed Procedures p Right Total Knee Arthroplasty - Julito Vargas MD Operation Date: 04/29/22 15:00 Proposed Procedures p Esophagogastroduodenoscopy - Chavez Carrero MD Date/Time: 04/29/22 11:06 Surgeon: Julito Vargas MD Pre Op Diagnosis: Rt Knee DJD Patient Data Age: 61 Gender: F Height: 1.6 m Weight: 62.3 kg Last Vital Signs Temp 96.8 F L 04/29/22 10:43 Pulse 60 04/29/22 10:43 Resp 17 04/29/22 10:43 BP 146/84 H 04/29/22 10:43 Pulse Ox 100 04/29/22 10:43 O2 Del Method Room Air 04/29/22 10:43 O2 Flow Rate 2 04/22/22 14:35 Allergies Allergy/AdvReac Type Severity Reaction Status Date / Time No Known Allergies Allergy Verified 04/29/22 10:41 Home Medications Medication Instructions Recorded Confirmed Type acetaminophen 500 mg capsule 500 mg PO Q6H PRN Pain 04/07/22 04/22/22 History citalopram 20 mg tablet 20 mg PO HS 04/07/22 04/22/22 History glucosamine 750 qw-cljiizyuvbl-eme 1 tablet PO DAILY 04/07/22 04/22/22 History no1 644 mg-C 30 mg-emmy 1 mg tablet (Osteo Bi-Flex Triple Strength) melatonin 5 mg tablet 5 mg PO HS PRN Insomnia 04/07/22 04/22/22 History metoprolol tartrate 25 mg tablet 12.5 mg PO BID 04/07/22 04/22/22 History omeprazole 40 mg capsule,delayed 40 mg PO PRN PRN Heartburn 04/07/22 04/22/22 History release zolpidem 10 mg tablet 10 mg PO HS 04/07/22 04/22/22 History aspirin 325 mg tablet,delayed 325 mg PO Q12HR 28 days #56 tabs 04/22/22 Rx release Patient hx anesthesia problems: none Family hx anesthesia problems: none Results Review: All pre-operative results and documents have been reviewed as part of the pre-operative evaluation. [facility] Past Medical History Medical History (Updated 03/13/23 @ 15:36 by Chavez Carrero MD) Acute blood loss anemia Anemia Arthritis Bilateral knee pain Chronic headaches Degenerative joint disease of knee Depression with anxiety Frequency of urination Hearing loss History of angiography HTN (hypertension) Knee effusion Left knee DJD Left knee pain Nausea Right knee DJD Right knee pain Seasonal allergies Sleep disorder Stomach ulcer Surgical History Surgical History (Updated 04/24/22 @ 07:28 by Courtney Victor APRN) H/O esophagogastroduodenoscopy S/P total knee arthroplasty Family History Family History Father Hypertension, Onset Age: 83 Family history of cardiovascular disease, Onset Age: 82 Mother Hypertension, Onset Age: 65 Other Arthritis Social History Social History (Updated 04/23/22 @ 18:21 by Maria G Fatima NP) Social History: The patient has 4 children. She is a homemaker. She lives with her . Code status full code Smoking status: Never smoker Second hand tobacco smoke exposure: No Alcohol intake: never Substance use: never Lack of Transportation: No Lack of Food: Never True Current Housing: I Have Housing Concerned About Future Housing: No Difficulty Paying Gas/Electric Bills: No Difficulty Paying for Meds: No Currently Unemployed: No Education: Associate Degree Difficulty w/ Childcare or Family Care: No Living arrangements: with family Spiritual care concerns: No Anes - Eval Final PreProcedure Day of Procedure 04/29/22 11:06 Patient weight: normal Heart: regular rate and rhythm Lungs: clear to auscultation Airway: Mallampati scale class II Neurological: alert and oriented Last oral intake: >/= 8 hours ASA classification: III Emergent: no Anesthetic plan: proceed Anesthesia type and monitoring: general GIVS and standard monitoring Results Review: All pre-operative results and documents have been reviewed as part of the pre-operative evaluation. Informed Consent: The patient's anesthetic plan and its att
--- NOTE | 2022-04-29 13:27 | PM.IMPN ---
Progress Note: A&P Assessment and Plan (1) S/P total knee arthroplasty: Qualifiers: Laterality: right Qualified Code(s): Z96.651 - Presence of right artificial knee joint Code(s): Z96.659 - Presence of unspecified artificial knee joint Status: Acute Assessment and Plan: POD3 Right TKA Anemia postop Hgb 7.4, down from 11.2 in March preop. Large hematoma to the right knee noted 04/23 and given 1 unit PRBC on 04/23. Good response post-transfusion of Hbg 9.2 0130 but then dropped to 8.5 at 0600 and patient hypotensive 76/48, HR 60 (patient is on beta-kelley). aspirin per Ortho. 04/24 Bolus 500 cc NS given x1 for hypotension and additional 1 unit PRBC ordered. Pain control, PT/OT, weight bearing status and SCDs per Ortho c/o pain with increasing lethargy after percocet. Start scheduled extra-strength tylenol 1000 mg Q8 hours scheduled, PRN oxycodone. continue ice and elevation. 04/27 Celebrex and aspirin stopped. 04/29 per ortho. Will defer to GI for recommendations continuing aspirin for DVT prophylaxis. Venous Doppler negative for DVT (2) Anemia: Qualifiers: Anemia type: other cause Code(s): D64.9 - Anemia, unspecified Status: Acute Assessment and Plan: Post-op anemia from acute blood loss anemia. H&H dropped as above. MCV and MCH normal limits, MCHC low, RDW not elevated. H/O PUD approximately 10 years ago. She has been treated with Toradol and full-strength aspirin postop. She denies dark stools, hematochezia or hematemesis. s/p 1 unit PRBC 04/23, give additional 1 unit PRBC now. PPIs started 04/24 tranexamic acid 1000 mg IV x2 intraop. Unable to check iron panel due to recent transfusion. Continue ferrous sulfate 325 mg by mouth daily for x6-8 weeks. B12 220 and folic acid within normal limits. Continue cyanocobalamin 1000 mcg PO daily at discharge 04/25 c/o dizziness. Orthostatics negative I discussed stool changes and symptoms suggestive of GI bleeding to report or seek care in the ED with the patient and her sons. She verbalized understanding. 04/25 H/H 12/16.7, Hgb up from 9.6 overnight; 04/26 Hgb 8.5 to 8.8. BUN:creatinine <30 04/27 Hgb 9.1, FOBT positive. Will consult GI for further recommendations on endoscopy. holding aspirin, anticoagulation and other NSAIDs until evaluated by GI. Continue PPI and change back to IV BID. Will make NPO except meds after midnight in case GI would like to perform Endoscopy. 04/28/22 Hgb 9 and stable from yesterday. Awaiting GI evaluation. 04/29 hemoglobin 9.8 stable from yesterday. Blood pressure is 148/88 heart rate 64 in stable. Would continue iron and B12 supplements for at least 6-8 weeks. Patient to follow-up with primary care provider regarding continue B12. continue Protonix. EGD was without ulceration but did show moderate gastritis. Avoid NSAIDs (3) HTN (hypertension): Qualifiers: Hypertension type: primary hypertension Qualified Code(s): I10 - Essential (primary) hypertension Code(s): I10 - Essential (primary) hypertension Status: Chronic Assessment and Plan: Chronic, now with hypotension, likely secondary to hypovolemia from bleeding. BP currently stable. Continue metoprolol at home dose. Blood pressure mildly elevated likely secondary to pain. Patient is asymptomatic. (4) Sleep disorder: Code(s): G47.9 - Sleep disorder, unspecified Status: Chronic Assessment and Plan: Chronic. Continue ambien, as BP tolerates, and melatonin. (5) Depression with anxiety: Code(s): F41.8 - Other specified anxiety disorders Status: Chronic Assessment and Plan: Continue with Celexa (6) B12 deficiency: Code(s): E53.8 - Deficiency of other specified B group vitamins Status: Acute Assessment and Plan: B12 supplement initiated And would recommend continuing a daily supplement. Plan EGD does show gastritis but nothing to explain drop in H
[2022-04-29 13:40] LABS: Hematocrit 31.9 % (37.0-47.0); Hemoglobin 9.8 g/dL (12.0-15.0)
--- NOTE | 2022-04-29 15:52 | PM.PNORT ---
Progress Note: A&P Assessment and Plan (1) S/P total knee arthroplasty: Qualifiers: Laterality: right Qualified Code(s): Z96.651 - Presence of right artificial knee joint Code(s): Z96.659 - Presence of unspecified artificial knee joint Status: Acute Assessment and Plan: POD #6 : Right TKA Continue PT/OT. WBAT. Walker. HIGH FALL RISK. Continue pain control. Ice knee. Protect skin. DVT prophylaxis with Aspirin- resumed. SCDs. Incentive Spirometry Use reviewed. Monitor Dressing. Dressing changed today. Incision well approximated. Okay for current dressing to remain in place until POD #14. One additional dressing to be sent home with patient in the event it is needed. Bowel Regimen. Reinforced need to pepper picker OTC stool softeners due to narcotic/iron use at discharge. Dispo: Home with Home Health tomorrow pending pain well controlled and recovery from anesthesia with EGD. (2) Guaiac positive stools: Code(s): R19.5 - Other fecal abnormalities Status: Acute Assessment and Plan: Patient had an EGD with GI today. Results with gastritis but no results to attribute to drop in H/H post operatively. Patient okay to be discharged from GI standpoint. Okay to resume medications, anticoagulant and add Protonix. Follow up per GI. Will prescribe protonix at discharge. Encouraged patient to follow up with PCP as well. (3) Acute blood loss anemia: Code(s): D62 - Acute posthemorrhagic anemia Status: Acute Assessment and Plan: EGD today with gastritis but no results to attribute to drop in H/H postoperatively. HgB stable today at 9.8. Plan to resume Aspirin for DVT prophylaxis. Prescription previously sent to pharmacy. Patient educated on use for discharge. Patient also started on iron x6 weeks per medicine team. (4) B12 deficiency: Code(s): E53.8 - Deficiency of other specified B group vitamins Status: Acute Assessment and Plan: Per medicine team, patient to go home with Vitamin B12 supplementation. Prescription sent to pharmacy. Patient to follow up with PCP. (5) Lower leg pain: Code(s): M79.669 - Pain in unspecified lower leg Status: Acute Assessment and Plan: Patient with complaints of RLE pain/swelling/ecchymosis. Difficulty with lower leg extension yesterday. Some improvement today. Ambulating well with PT. Doppler ordered by Dr. Vargas yesterday negative for acute DVT. Continue ice/elevation. Follow up with Dr. Vargas as an outpatient for reevaluation and new radiographs as previously scheduled. Will be discharged home with home health. Will later transition to outpatient PT. Time Spent With Patient Time: Reviewed assessment, RLE swelling/pain/ecchymosis and decreased lower leg extension, Doppler, EGD results and current labs with attending MD, Dr. Vargas. Agrees with current plan as indicated above. No further recommendations at this time. Subjective Subjective Date/Time Seen: 04/29/22 15:52 Post Op day: 7 Interval history: POD #7: Right TKA Patient in bed. Reports mild pain right knee. Pain mainly with PT/OT and ambulation. Recovering from EGD earlier today. No complaints of nausea/vomiting. No new concerns overall. Review of Systems Review of Systems: All systems reviewed & are unremarkable except as noted in HPI and below Exam Const: General: comfortable and no acute distress Resp: Effort & Inspection: normal respiratory effort Cardio: Rate: regular rate Rhythm: regular rhythm GI: GI Palp: Yes Soft to palpation Skin: General skin exam: wounds noted Wounds: wounds noted Other: Dressing right knee changed. Incision well-approximated. Scant drainage on dressing. Surrounding leg with ecchymosis. Neuro: Cognition (Neuro): normal cognition Other: NV intact. Moves toes. Sensation intact to light touch. +ankle dorsiflexion/plantarflexion. Extrem: Right lower extremity: normal to inspection, knee Detai
[2022-04-29] MEDS: SENNA/DOCUSATE SODIUM TABLET 2 TAB PO (17:50)
[2022-04-29] MEDS: CITALOPRAM HYDROBROMIDE 20 MG TABLET PO (22:24)
[2022-04-29] MEDS: ZOLPIDEM TARTRATE (*CRX) 5 MG TABLET 10 MG PO (22:24)
[2022-04-29] MEDS: hydrOXYzine pamoate 25 MG CAPSULE 50 MG PO (22:26)
[2022-04-30] MEDS: oxyCODONE HCL (*CRX) 5 MG TAB IR PO ×2 (05:51→10:03)
[2022-04-30] MEDS: ACETAMINOPHEN 500 MG TABLET 1000 MG PO ×2 (05:51→13:18)
[2022-04-30] MEDS: diazePAM (*CRX) 5 MG TABLET PO (05:58)
[2022-04-30 08:24] VITALS: BP 127/72; PULSE 65; RESP 15; TEMP 36.4; O2SAT 99
[2022-04-30 08:30] VITALS: PULSE 66
[2022-04-30] MEDS: SENNA/DOCUSATE SODIUM TABLET 2 TAB PO (08:30)
[2022-04-30] MEDS: METOPROLOL TARTRATE 12.5 MG TABLET PO (08:30)
[2022-04-30] MEDS: PANTOPRAZOLE 40 MG TABLET PO (08:30)
[2022-04-30] MEDS: polyethylene glycoL 3350 17 GM POWD.PACK PO (08:30)
[2022-04-30] MEDS: FERROUS SULFATE DRIED 142 MG TABCR PO (08:30)
[2022-04-30] MEDS: CYANOCOBALAMIN 1,000 MCG TABLET 1000 MCG PO (08:30)
--- NOTE | 2022-04-30 10:35 | PM.IMPN ---
Progress Note: A&P Assessment and Plan (1) S/P total knee arthroplasty: Qualifiers: Laterality: right Qualified Code(s): Z96.651 - Presence of right artificial knee joint Code(s): Z96.659 - Presence of unspecified artificial knee joint Status: Acute Assessment and Plan: POD3 Right TKA Per ortho team. Anemia postop Hgb 7.4, down from 11.2 in March preop. Treated with 2 units PRBC. PT/OT, weight bearing status and SCDs per Ortho 04/26/22 c/o pain with increasing lethargy after percocet. Start scheduled extra-strength tylenol 1000 mg Q8 hours scheduled, PRN oxycodone. continue ice and elevation. 04/27 Celebrex and aspirin stopped. 04/29 per ortho. Will defer to GI for recommendations continuing aspirin for DVT prophylaxis. Venous Doppler negative for DVT (2) Anemia: Qualifiers: Anemia type: other cause Code(s): D64.9 - Anemia, unspecified Status: Acute Assessment and Plan: Post-op anemia from acute blood loss anemia. H&H dropped as above. MCV and MCH normal limits, MCHC low, RDW not elevated. H/O PUD approximately 10 years ago. She has been treated with Toradol and full-strength aspirin postop. She denies dark stools, hematochezia or hematemesis. s/p 2 unit PRBC 04/23 and 04/24, PPIs IV BID started 04/24 tranexamic acid 1000 mg IV x2 intraop. Unable to check iron panel due to recent transfusion. Empiric ferrous sulfate 325 mg by mouth daily for x6-8 weeks. B12 220 and folic acid within normal limits. Started cyanocobalamin 1000 mcg PO daily and continue at discharge 04/25 c/o dizziness. Orthostatics negative 04/27 Hgb 9.1, FOBT positive. GI consulted. holding aspirin, anticoagulation and other NSAIDs until evaluated by GI. PPI changed back to IV BID. 04/28/22 Hgb 9 and stable from yesterday. Awaiting GI evaluation. 04/29/22 hemoglobin 9.8 stable since 04/27. Blood pressure is 148/88 heart rate 64 in stable. Continue iron and B12 supplements. Patient to follow-up with primary care provider regarding continue B12. continue Protonix 40 mg daily. EGD was without ulceration but did show moderate gastritis. Avoid NSAIDs if possible. Will defer to ortho and GI regarding aspirin dose for DVT prophylaxis. 04/30/22 Repeat H/H in 1 week and follow up with PCP. (3) HTN (hypertension): Qualifiers: Hypertension type: primary hypertension Qualified Code(s): I10 - Essential (primary) hypertension Code(s): I10 - Essential (primary) hypertension Status: Chronic Assessment and Plan: Chronic, now with hypotension, likely secondary to hypovolemia from bleeding. BP currently stable. Continue metoprolol at home dose. Blood pressure mildly elevated likely secondary to pain. Patient is asymptomatic. (4) Sleep disorder: Code(s): G47.9 - Sleep disorder, unspecified Status: Chronic Assessment and Plan: Chronic. Continue ambien, as BP tolerates, and melatonin. (5) Depression with anxiety: Code(s): F41.8 - Other specified anxiety disorders Status: Chronic Assessment and Plan: Continue with Celexa (6) B12 deficiency: Code(s): E53.8 - Deficiency of other specified B group vitamins Status: Acute Assessment and Plan: B12 supplement initiated. And would recommend continuing a daily supplement. Plan Patient to discharge today and going home. We discussed information above and I answered all family questions to the best of my ability. Time Spent With Patient Time with patient: 15 - 25 minutes Subjective Date/time seen: 04/30/22 10:35 She reports she is still with some pain, but the medication helps. No BM today. Family is concerned about repeating blood test and stool samples today. We discussed EGD results and that H/H has been stable and trending up the last 3 days. Patient had a colonoscopy 2 years ago and is without leukocytosis, abdominal pain or stool changes to suspect diverticul
--- NOTE | 2022-04-30 15:01 | PM.PNORT ---
Progress Note: A&P Assessment and Plan (1) S/P total knee arthroplasty: Qualifiers: Laterality: right Qualified Code(s): Z96.651 - Presence of right artificial knee joint Code(s): Z96.659 - Presence of unspecified artificial knee joint Status: Acute Assessment and Plan: POD 7 . SHE IS READY FOR DISCHARGE. SHE WILL F/U IN 2 WEEKS. SHE MAY START BACK ON ASPIRIN AND PROTONIX. SHE WILL HAVE HOME NURSING AND PT. SHE WILL CALL ME IF SHE HAS ANY PROBLEMS. Subjective Subjective Date/Time Seen: 04/30/22 15:01 POD 6 DOING WELL. HER EGD REVEALED NO ACTIVE BLEEDING. SHE WILL CONTINUE PROTONIX. SHE IS DOING WELL WITH PT. HER PAIN IS WELL CONTROLLED. Exam Extrem: Other: VSS AFEBEBRILE DRESSING DRY NV INTACT NEG HOMANS SIGN CALF SOFT NON TENDER Objective Data Vital Signs Vital Signs: Vital Signs - 24 hr 04/29/22 23:00 04/29/22 20:00 04/30/22 08:24 Temperature 37.1 C 36.4 C L Pulse Rate 70 65 Respiratory Rate 14 15 Blood Pressure 149/68 H 127/72 Pulse Oximetry 100 100 99 Oxygen Delivery Room Air 04/30/22 08:30 04/30/22 08:30 Temperature Pulse Rate 66 Respiratory Rate Blood Pressure Pulse Oximetry Oxygen Delivery Room Air Intake/Output Intake/Output: Intake & Output 04/27/22 04/28/22 04/29/22 04/30/22 23:59 23:59 23:59 23:59 Intake Total 236 960 980 Output Total 3 Balance 233 960 980 Meds/Results Medications: Active Medications Generic Name Dose Route Start Last Admin Trade Name Freq PRN Reason Stop Dose Admin Acetaminophen 1,000 mg 04/26/22 14:00 04/30/22 13:18 Acetaminophen 500 Mg Tablet PO 1,000 mg Q8HR NANCY Administration Citalopram Hydrobromide 20 mg 04/22/22 21:00 04/29/22 22:24 Citalopram Hydrobromide 20 Mg Tablet PO 20 mg HS NANCY Administration Cyanocobalamin 1,000 mcg 04/25/22 09:00 04/30/22 08:30 Cyanocobalamin 1,000 Mcg Tablet PO 1,000 mcg QAM NANCY Administration Diazepam 5 mg 04/24/22 15:52 04/30/22 05:58 Diazepam (*Crx) 5 Mg Tablet PO 5 mg BID PRN Administration Spasms Diphenhydramine HCl 25 mg 04/22/22 14:38 Diphenhydramine Hcl Inj 50 Mg/Ml Vial IV PUSH Q6H PRN Itching Ferrous Sulfate 142 mg 04/24/22 08:00 04/30/22 08:30 Ferrous Sulfate Dried 142 Mg Tabcr PO 142 mg DAILY@0800 NANCY Administration Hydroxyzine Pamoate 50 mg 04/24/22 16:15 04/29/22 22:26 Hydroxyzine Pamoate 25 Mg Capsule PO 50 mg Q6HR PRN Administration moderate muscle/joint pain Hydroxyzine Pamoate 100 mg 04/24/22 16:15 Hydroxyzine Pamoate 25 Mg Capsule PO Q6HR PRN severe Muscle/Joint pain Melatonin 5 mg 04/22/22 14:38 Melatonin 5 Mg Tablet PO HS PRN Insomnia Metoprolol Tartrate 12.5 mg 04/22/22 21:00 04/30/22 08:30 Metoprolol Tartrate 12.5 Mg Tablet PO 12.5 mg Q12HR NANCY Administration Morphine Sulfate 2 mg 04/24/22 15:53 04/25/22 16:34 Morphine Sulfate (*Crx) 2 Mg/Ml Inj IV PUSH 2 mg Q3HR PRN Administration Breakthrough Pain Naloxone HCl 0.1 mg 04/22/22 14:38 Naloxone Hcl 0.4 Mg/Ml Vial IV PUSH Q2M PRN Opiate Reversal Ondansetron HCl 4 mg 04/22/22 14:38 04/23/22 11:51 Ondansetron Inj 4 Mg/2 Ml Vial IV PUSH 4 mg Q4H PRN Administration Nausea And Vomiting Oxycodone HCl 5 mg 04/26/22 09:40 04/30/22 10:03 Oxycodone Hcl (*Crx) 5 Mg Tab Ir PO 5 mg Q4H PRN Administration Pain Rated 7-10 Pantoprazole Sodium 40 mg 04/30/22 09:00 04/30/22 08:30 Pantoprazole 40 Mg Tablet PO 40 mg QAM [facility] Administration Polyethylene Glycol 17 gm 04/23/22 09:00 04/30/22 08:30 Polyethylene Glycol 3350 17 Gm Powd.Pack PO 17 gm QAM [facility] Administration Senna/Docusate Sodium 2 tab 04/22/22 17:00 04/30/22 08:30 Senna/Docusate Sodium Tablet PO 2 tab BID NANCY Administration Zolpidem Tartrate 10 mg 04/22/22 21:00 04/29/22 22:24 Zolpidem Tartrate (*Crx
--- NOTE | 2022-04-30 15:06 | PM.DS ---
DS: Admitting Diagnosis Discharge Date 04/30/22 Admitting Diagnosis RIGHT KNEE DJD DS: Discharge Diagnosis Discharge Diagnosis (1) Guaiac positive stools: Code(s): R19.5 - Other fecal abnormalities Status: Acute (2) S/P total knee arthroplasty: Qualifiers: Laterality: right Qualified Code(s): Z96.651 - Presence of right artificial knee joint Code(s): Z96.659 - Presence of unspecified artificial knee joint Status: Acute DS: Summary Hospital Course Reason for hospitalization: RIGHT TKA Hospital Course: PATIENT WAS ADMITTED S/P TOTAL [] ARTHROPLASTY FOR POSTOPERATIVE MEDICAL MANAGEMENT, PAIN CONTROL AND MOBILIZATION WITH PHYSICAL AND OCCUPATIONAL THERAPY. SHE HAD SLOW PROGRESS WITH PT IN THE BEGINNING. SHE ALSO REQUIRED POSTOP BLOOD TRANSFUSION . SHE HAD GUAIAC POSITIVE STOOLS WHICH WARRANTED A GI CONSULT AND MEDICINE CONSULT. AN EGD WHICH SHOWED NO ACTIVE BLEEDING.THE PATIENT THEN CONTINUED TO PROGRESSED WITH PT/OT. LABS AND VITALS REMAINED STABLE AND PAIN WELL CONTROLLED. THE PATIENT HAS BEEN CLEARED TO BE DISCHARGED TO HOME. FOLLOW UP APPOINTMENT SCHEDULED. DISCHARGE INSTRUCTIONS DISCUSSED AT LENGTH WITH THE PATIENT. MEDICATIONS REVIEWED. Status at Discharge Cognitive/behavioral status at discharge: STABLE Functional status at discharge: uses cane/walker Time Spent with Patient Time attestation: Total time spent providing and/or coordinating discharge services: DS: Data Data Completed and Pending Pending studies at discharge: Pending at discharge 04/29/22 11:33 Surgical [PTH] Routine Discharge Plan Discharge Attending physician on discharge: Julito Vargas Consulting providers: Maria Dolores José ; Chavez Carrero Discharging Clinician: Jessica Bull Anticipated Discharge Date/Time: 04/29/22 15:00 Patient Disposition: Home Health Service Activity: may shower, no driving and as tolerated Diet: as tolerated Wound Care Instructions: follow printed instructions Discharge Instructions: Per Care Coordination, patient to discharge with [facility] ([phone]) for PT/OT and jail. Agency will call to schedule the initial visit. Post Op Total Knee Replacement Instructions Dr. Julito Vargas [phone] Your dressing will be changed prior to your discharge. Your carolin will be removed on the 14th day after surgery and steri-strips will be placed. Please practice good hand hygiene and do not touch your incision in order to prevent infection. You may shower with your dressing but do not submerge in a bath tub. Do not drive or operate machinery until you are released by Dr. Vargas. Do not walk without a walker for any reason until you are released by Dr. Vargas. Continue to use your ice machine. Please use a towel or pillow case to protect your skin before applying your ice machine. Do NOT place a pillow under your knee. You may use a pillow from the calf down if needed. This will prevent a flexion contracture postoperatively. You may begin use of your CPM machine at home if you have been given one pre-operatively. DO NOT USE WHILE YOU ARE SLEEPING. Your first post op appointment was sent to you via mail preoperatively. If you have any questions or are unable to make your appointment, please contact our office for scheduling questions. Your medications have been sent to your pharmacy. You have been sent home with pain medication. Please black pickler an over the counter stool softener to prevent constipation due to narcotic use. Please keep this in mind during your postoperative recovery. If you are not experiencing regular bowel movements, please contact our office for further instruction. Please contact our office with any questions/concerns regarding your knee at [phone]. [address] Dr[address] Vargas, would recommend following up with your PCP to review your low Vitamin B12, Iron and recent blood positive stool. May require furthe
== END 2022-04-30 16:20 | disposition home health service (06) | DRG 302 ==
LOC: ANHSURGERY 16:53 → ANH3MEDSUR 16:53
PROVIDERS: Internal Medicine; Internal Medicine Gastroenterology; Nurse Practitioner; Nurse Practitioner Family; Admitting Provider Orthopaedic Surgery; PCP Family Medicine; Visit Provider Orthopaedic Surgery
PROC: 0SRC0J9 Replacement of Right Knee Joint with Synthetic Substitute, Cemented, Open Approach (ICD-10-PCS; CPT 27447; principal; 2022-04-22 11:00)
PROC: 0DJ08ZZ Inspection of Upper Intestinal Tract, Via Natural or Artificial Opening Endoscopic (ICD-10-PCS; CPT 43235; principal; 2022-04-29 15:00)
DX: M17.11 Unilateral primary osteoarthritis, right knee (principal); D51.9 Vitamin B12 deficiency anemia, unspecified; D62 Acute posthemorrhagic anemia; R11.0 Nausea; I10 Essential (primary) hypertension; F41.8 Other specified anxiety disorders; G47.9 Sleep disorder, unspecified; K29.70 Gastritis, unspecified, without bleeding; R19.5 Other fecal abnormalities; M96.840 Postprocedural hematoma of a musculoskeletal structure following a musculoskeletal system procedure; Z87.11 Personal history of peptic ulcer disease
CPT/HCPCS: 36415; 36430; 73560; 80048; 80053; 82274; 82607; 82746; 83605; 83735; 84443; 85014; 85018; 85025; 85027; 85055; 85610; 85730; 86850; 86900; 86901; 86920; 88305; 93971; 97110; 97116; 97161; 97165; 97530; 97535; A9270; C1713; C1776; C9113; G0378; G0379; J0131; J0171; J0690; J1100; J1170; J1885; J2250; J2270; J2370; J2405; J2704; J2795; J3010; J7030; J7040; J7050; J7120; P9016

== ENCOUNTER 2022-05-06 14:35 | Outpatient (NON) | payer OTHER, SELFPAY ==
[2022-05-06 15:29] LABS: Hematocrit 29.6 % (37.0-47.0); Hemoglobin 9.2 g/dL (12.0-15.0)
== END 2022-05-06 14:36 | disposition home or self-care (01) ==
LOC: HOME HLTH 14:37
PROVIDERS: PCP Family Medicine; Visit Provider Orthopaedic Surgery
DX: Z47.1 Aftercare following joint replacement surgery (principal); Z96.651 Presence of right artificial knee joint
CPT/HCPCS: 81001; 85014; 85018

== ENCOUNTER 2022-05-06 15:55 | Outpatient (NON) | payer OTHER, SELFPAY ==
[2022-05-06 16:19] LABS: Appearance Urine Clear (Clear); Bacteria Urine None Seen /hpf; Bilirubin Urine Negative (Negative); Color Urine Yellow (Yellow); Glucose Urine UA Negative (Negative); Ketones Urine Negative (Negative); Leukocyte Esterase Ur Negative LEU/UL (Negative); Nitrate Urine Negative (Negative); Non Pathogenic Casts 0-2; Protein Urine Negative (Negative); RBC Urine 0-2 /hpf (0-2); Specific Grav Ur 1.008 (1.001-1.035); Squamous Epithelial Cell Urine None seen /hpf (Few); WBC Urine 0-5 /hpf; pH Urine 6.5 (5.0-9.0)
[2022-05-06 16:31] LABS: Add Urine Microscopic? YES
== END 2022-05-06 15:56 | disposition home or self-care (01) ==
PROVIDERS: PCP Family Medicine; Visit Provider Family Medicine
DX: N39.0 Urinary tract infection, site not specified (principal)
CPT/HCPCS: 81001

== ENCOUNTER 2022-05-27 14:20 | Outpatient (CLI) | payer OTHER, SELFPAY ==
--- NOTE | ~2022-05-27 | US_ITS ---
EXAMINATION:US venous doppler LE BI INDICATION:Calf pain TECHNIQUE: Multiple grayscale, color flow and Doppler images of the right and left lower extremity de ep venous systems were obtained and reviewed. COMPARISON:Ultrasound dated 04/28/2022 FINDINGS: The common femoral, superficial femoral and popliteal veins demonstrate normal respiratory variation, augmentation and compressibility. Color flow is also seen within the posterior tibial, pe roneal, greater saphenous and profunda veins. Small amount of fluid surrounding the right knee. IMPRESSION: 1: No lower extremity deep venous thrombosis. Reviewed, dictated and finalized at location L.
== END 2022-05-27 14:21 | disposition home or self-care (01) ==
LOC: ANHIMG 14:21
PROVIDERS: PCP Family Medicine; Visit Provider Orthopaedic Surgery
DX: M79.662 Pain in left lower leg (principal); M79.661 Pain in right lower leg
CPT/HCPCS: 93970

== ENCOUNTER 2023-01-06 13:00 | Outpatient (RCR) | payer OTHER, SELFPAY ==
--- NOTE | 2022-11-18 16:00 | OPREHPOC ---
Outpatient Therapy Plan of Care This is a Multidisciplinary Plan of Care that may contain components documented by all disciplines (PT, OT, and ST.) PT Problem 1 PT Problem #1 Knowledge Deficit PT Goal 1 Goal Patient will be independent with progressive hip mobility and strengthening program. Target Visit 4 PT Problem 2 PT Problem #2 Pain PT Goal 1 Goal Report pain no greater than 2/10 when walking for greater than 10 minutes. Target Visit 8 PT Problem 3 PT Problem #3 Impaired Range of Motion PT Goal 1 Goal Improve R hip abduction to 40 degrees to reduce adduction restriction with gait and squatting Target Visit 8 PT Goal 2 Goal Patient will improve L hamstring flexibility to - 20 degrees ponce to reduce posterior pull on knee capsule for ambulation improvement Target Visit 8 PT Problem 4 PT Problem #4 Impaired Gait PT Goal 1 Goal Patient will demonstrate even stride length bilaterally with absence of compensated Trendelenburg PT Problem 5 PT Problem #5 Impaired Strength PT Goal 1 Goal Patient will improve ponce hip abduction strength to 4+/5 to improve lateral stability with gait and ADLs
--- NOTE | 2022-11-18 16:02 | PTOPEVAL1 ---
Assessment and note entered by Edgar Laboy, PT Evaluation Information Assessment Status Evaluation Diagnosis Osteoarthritis of bilateral knees, Knee pain, altered gait, LE weakness Onset April of 2022 Subjective Information Reports that she feels she is still really struggling with her knee replacement on right knee . She is also having a lot of pain on her left knee so she does not feel either is great right. She is having a lot of trouble with stairs both going up and going down. She is also limited in walking. She cannot walk comfortably for any sort of distance. She wants to be able to walk over 10 minutes but cannot right now. She is also having pain when sleeping as she cannot sleep on her side very well. Reported Pain Level Pain Score 6: Self Report Assessment PT Clinical Summary Patient is presenting with gross functional deficits in gait and mobility. Weakness noted in bilateral knees and hips. We are showing some hip mobility restriction as well. I feel there is a significant contribution of decreased core and hip stability on knee loading and stress. She will benefit from progressive exercise program to address these symptoms moving forward. Plan of Care Interventions Electrical Stimulation,Gait Training,Hot Pack/Cold Pack,Manual Therapy,Neuro Re-education, Therapeutic Activities,Therapeutic Exercise PT Services Indicated Yes Treatment Frequency and 2x.week for 4 weeks Duration These treatments will address the objective and functional deficits as defined above. The patient will be advanced safely and appropriately in order for the patient to progress towards his/her prior level of function. Additional exercises will be introduced and as well as a comprehensive home exercise program upon discharge, if needed, ?to ensure carryover of functional gains achieved in the clinic. This treatment plan has been reviewed and agreement upon by the patient.
--- NOTE | 2022-12-02 11:33 | PCPTNOTE ---
Patient called and canceled this date due to no ride.
--- NOTE | 2022-12-16 12:06 | PTOPPROG ---
Assessment and note entered by Edgar Laboy, PT Evaluation Information Assessment Status Progress Diagnosis Osteoarthritis of bilateral knees, Knee pain, altered gait, LE weakness Onset April of 2022 Subjective Information Overall she is feeling better than when she started therapy. She is still having days where she feels a lot of pain and inflammation in the knee, but those days are less often. Continues to struggle with stair navigation. She is having slight pinching sensation on front medial knee near patella. Assessment PT Clinical Summary Objectively we have seen significant objective improvement at this time in knee ROM, strength, and gait pattern. We continue to struggle with knee edema although it is improved from the initial evaluation. She is following up with MD on 12/30/22 to help assess continued presence of edema. I advised her to return to wearing compression stockings ensuring that they go above knee as she was having leg edema issues prior to surgery and may be contributing. Plan of Care Interventions Electrical Stimulation,Gait Training,Hot Pack/Cold Pack,Manual Therapy,Neuro Re-education, Therapeutic Activities,Therapeutic Exercise PT Services Indicated Yes Treatment Frequency and 1x/week for 2 weeks Duration These treatments will address the objective and functional deficits as defined above. The patient will be advanced safely and appropriately in order for the patient to progress towards his/her prior level of function. Additional exercises will be introduced and as well as a comprehensive home exercise program upon discharge, if needed, ?to ensure carryover of functional gains achieved in the clinic. This treatment plan has been reviewed and agreement upon by the patient.
--- NOTE | 2023-01-06 14:03 | PTOPDC ---
Assessment and note entered by Edgar Laboy, PT Discharge Information Assessment Status Discharge Diagnosis Osteoarthritis of bilateral knees, Knee pain, altered gait, LE weakness Onset April of 2022 Subjective Information Feels she has hit majority of her personal goals for therapy. She still has occasional pain, but has been wearing compression stockings to help with swelling. Reported Pain Level Pain Score 1: Self Report Assessment PT Clinical Summary Patient has hit all personal goals for therapy at this time. She has some swelling continued, but overall is seeing a lot of personal progress. She is comfortable with discharge to [facility] at this time. Plan of Care PT Services Indicated Discharge to [facility]
--- NOTE | 2023-01-06 14:04 | OPREHPOC ---
Outpatient Therapy Plan of Care This is a Multidisciplinary Plan of Care that may contain components documented by all disciplines (PT, OT, and ST.) PT Problem 1 PT Problem #1 Knowledge Deficit PT Goal 1 Goal Patient will be independent with progressive hip mobility and srtrengthening program. Target Visit 4 Progress Met PT Problem 2 PT Problem #2 Pain PT Goal 1 Goal Report pain no greater than 2/10 when walking for greater than 10 minutes. Target Visit 8 Progress Met PT Problem 3 PT Problem #3 Impaired Range of Motion PT Goal 1 Goal Improve R hip abduction to 40 degrees to reduce adduction restriction with gait and squatting Target Visit 8 Progress Met PT Goal 2 Goal Patient will improve L hamstring flexibility to - 20 degrees ponce to reduce posterior pull on knee capsulefor ambulation improvement Target Visit 8 Progress Met PT Problem 4 PT Problem #4 Impaired Gait PT Goal 1 Goal Patient will demonstrate even stride length bilaterally with absence of compensated Trendelenburg Target Visit 10 Progress Met PT Problem 5 PT Problem #5 Impaired Strength PT Goal 1 Goal Patient will improve ponce hip abduction strength to 4+/5 to improve lateral stability with gait and ADLs Target Visit 10 Progress Not Met
== END 2023-01-06 14:58 | disposition home or self-care (01) ==
LOC: ANHGOSHPT 13:00
PROVIDERS: PCP Family Medicine; Visit Provider Family Medicine
DX: M17.0 Bilateral primary osteoarthritis of knee (principal)
CPT/HCPCS: 97110; 97112; 97116; 97161; 97530

== ENCOUNTER 2023-02-02 14:14 | Outpatient (NON) | payer OTHER, SELFPAY ==
[2023-02-02 15:59] LABS: Appearance Synovial Fluid Hazy (Clear); Color Synovial Fluid Yellow (Colorless); Neutrophils Synovial Fluid 30 % (0-25); Nucleated Cell Synovial Fluid 464 /uL (0-200); RBC Synovial Fluid 18000 /uL (0-0); Source Synovial Fluid Synovial fluid
[2023-02-02 16:00] LABS: Lymphocytes Synovial Fluid 43 %; Monocytes Synovial Fluid 27 %
[2023-02-02 16:12] LABS: Crystals Synovial Fluid None Seen (None Seen)
[2023-02-06 12:11] LABS: Glucose Synovial Fluid 72 mg/dL
[2023-02-08 11:37] LABS: Total Protein Synovial Fluid 2.7
== END 2023-02-02 14:15 | disposition home or self-care (01) ==
LOC: ANHLAB 14:16
PROVIDERS: PCP Family Medicine; Visit Provider Orthopaedic Surgery
DX: M25.461 Effusion, right knee (principal)
CPT/HCPCS: 36415; 82945; 84157; 86430; 87070; 87075; 87205; 89051; 89060

== ENCOUNTER 2023-09-10 07:30 | Outpatient (CLI) | payer OTHER, SELFPAY ==
--- NOTE | ~2023-09-10 | MM_ITS ---
EXAMINATION: MM screening cornelio BI w gerard HISTORY: Screening TECHNIQUE: Craniocaudal and mediolateral oblique 3-D tomosynthesis images were obtained and synthetic 2-D images were generated. CAD analysis was submitted and interpreted. COMPARISON: Comparison to multiple prior studies sequentially, with oldest reviewed study dated 10/29. BREAST PARENCHYMAL COMPOSITION: Not dense: There are scattered areas of fibroglandular density. FINDINGS: There is no evidence of suspicious mass, calcification, or architectural distortion to sugg est malignancy in either breast. There has been no suspicious interval change. IMPRESSION: 1. No mammographic evidence of malignancy. 2. Recommend routine screening mammography in one year. BI-RADS Category 1: Negative Reviewed, dictated and finalized at location B.
== END 2023-09-10 07:31 | disposition home or self-care (01) ==
LOC: ANHIMG 07:31
PROVIDERS: PCP Family Medicine; Visit Provider Family Medicine
DX: Z12.31 Encounter for screening mammogram for malignant neoplasm of breast (principal)
CPT/HCPCS: 77063; 77067; 99213; G0463

== ENCOUNTER 2023-09-10 16:48 | Emergency (ER) | payer OTHER, SELFPAY ==
[2023-09-10 17:02] VITALS: BP 126/68; PULSE 74; RESP 16; TEMP 36.2; O2SAT 100
--- NOTE | 2023-09-10 17:08 | ED.URI ---
HPI - URI/Sore Throat General Chief Complaint: Upper Respiratory Infection Stated Complaint: Congestion Time Seen by Provider: 09/10/23 17:01 Source: patient and RN notes reviewed Mode of arrival: ambulatory Limitations: no limitations History of Present Illness HPI Narrative: Patient presents today complaining of one-month history of cough, 2 month history of postnasal drip. Cough is worse at night. Shortness of breath. She has been using cough syrup with short-term relief. No history of asthma or COPD. She is a nonsmoker. Related Data Home Medications Medication Instructions Recorded Confirmed melatonin 5 mg tablet 5 mg PO HS PRN Insomnia 04/07/22 07/09/23 metoprolol tartrate 25 mg tablet 12.5 mg PO BID 04/07/22 07/09/23 Allergies Allergy/AdvReac Type Severity Reaction Status Date / Time No Known Allergies Allergy Verified 09/10/23 16:55 Review of Systems Review of Systems: CONSTITUTIONAL: Denies body aches, fever, chills, or sweats. EYES: Denies visual changes, redness, or discharge. ENT: Denies rhinorrhea, congestion, sore throat, or otalgia.+ postnasal drip CARDIOVASCULAR: Denies chest pain, palpitations, or edema. RESPIRATORY: Denies dyspnea.+ cough GASTROINTESTINAL: Denies abdominal pain, nausea, vomiting, or diarrhea. GENITOURINARY: Denies dysuria or hematuria. SKIN: Denies rash, itching, or wounds. MUSCULOSKELETAL: Denies back pain, joint pain, or myalgia. NEUROLOGIC: Denies headache, numbness, tingling, or weakness. PSYCH: Denies depression or anxiety. [facility] Past Medical History Medical History Acute blood loss anemia Anemia Arthritis Bilateral calf pain Bilateral knee pain Chronic headaches Degenerative joint disease of knee Depression with anxiety Frequency of urination Hearing loss History of angiography HTN (hypertension) Knee effusion Left knee DJD Left knee pain Lower leg pain Nausea Right knee DJD Right knee pain Seasonal allergies Sleep disorder Stomach ulcer Surgical History Surgical History H/O esophagogastroduodenoscopy S/P total knee arthroplasty RT TKA 04/22/2022 Family History Family History Father Hypertension, Onset Age: 83 Family history of cardiovascular disease, Onset Age: 82 Mother Hypertension, Onset Age: 65 Other Arthritis Social History Social History Social History: The patient has 4 children. She is a homemaker. She lives with her . Code status full code Smoking status: Never smoker Second hand tobacco smoke exposure: No Alcohol intake: never Substance use: never Lack of Transportation: No Lack of Food: Never True Current Housing: I Have Housing Concerned About Future Housing: No Difficulty Paying Gas/Electric Bills: No Difficulty Paying for Meds: No Currently Unemployed: No Education: Associate Degree Difficulty w/ Childcare or Family Care: No Living arrangements: with family Spiritual care concerns: No Comments At time of signature, I have reviewed and agree with nursing past medical, surgical, social and family history unless otherwise noted. Please see nursing chart for further information. There is no relevant family history pertinent to the presenting complaint Exam Narrative: GENERAL: Well-appearing, well-nourished, and in no acute distress. HEAD: Normocephalic, atraumatic. EYES: EOMI. No redness or drainage. Conjunctivae normal. ENT: Mucous membranes pink and moist. Nares clear. No rhinorrhea. TMs normal bilaterally. Throat normal with moderate amount of purulent postnasal drainage. Uvula midline. NECK: Normal AROM. Supple. No lymphadenopathy. CHEST: No respiratory distress. Clear to auscultation. HEART:
== END 2023-09-10 17:16 | disposition home or self-care (01) ==
PROVIDERS: Emergency Provider Nurse Practitioner
DX: J40 Bronchitis, not specified as acute or chronic (principal); J01.90 Acute sinusitis, unspecified; I10 Essential (primary) hypertension; M17.0 Bilateral primary osteoarthritis of knee; Z96.651 Presence of right artificial knee joint
CPT/HCPCS: 99213; G0463

== ENCOUNTER 2023-10-02 15:34 | Emergency (ER) | payer OTHER, SELFPAY ==
--- NOTE | ~2023-10-02 | XR_ITS ---
3 VIEWS LUMBAR SPINE Ordering provider: Ryan Jackson MD History: . back pain from gardening; no injury . Comparison: None. FINDINGS: VERTEBRAL BODIES:Transitional vertebra is noted. No visible fracture or subluxation. DISK SPACES: Normal. SOFT TISSUES: Normal. IMPRESSION: No acute osseous abnormality lumbar spine. Reviewed, dictated and finalized at location A.
[2023-10-02 15:42] VITALS: BP 130/63; PULSE 70; RESP 20; TEMP 36.3; O2SAT 100
--- NOTE | 2023-10-02 16:15 | ED.BACK ---
HPI - Back Pain/Injury General Chief Complaint: Back Pain/Injury Stated Complaint: back pain Time Seen by Provider: 10/02/23 15:54 History of Present Illness HPI Narrative: 63-year-old female presenting to the emergency department for evaluation for lower back pain. Patient reports 3 days ago she is working in her garden she bent over and felt a sharp pain in her lower back. Patient has been taking Tylenol for pain control but states this pain is not yet controlled. Patient denies any associated numbness or weakness down her legs. Patient denies any change in bowel or bladder habit. Patient does have chronic knee pain and states this is slightly worsened. Related Data Home Medications Medication Instructions Recorded Confirmed melatonin 5 mg tablet 5 mg PO HS PRN Insomnia 04/07/22 07/09/23 metoprolol tartrate 25 mg tablet 12.5 mg PO BID 04/07/22 07/09/23 Allergies Allergy/AdvReac Type Severity Reaction Status Date / Time No Known Allergies Allergy Verified 10/02/23 15:36 Review of Systems Review of Systems: All systems reviewed & are unremarkable except as noted in HPI and below PMFSH Past Medical History Medical History Acute blood loss anemia Anemia Arthritis Bilateral calf pain Bilateral knee pain Chronic headaches Degenerative joint disease of knee Depression with anxiety Frequency of urination Hearing loss History of angiography HTN (hypertension) Knee effusion Left knee DJD Left knee pain Lower leg pain Nausea Right knee DJD Right knee pain Seasonal allergies Sleep disorder Stomach ulcer Surgical History Surgical History H/O esophagogastroduodenoscopy S/P total knee arthroplasty RT TKA 04/22/2022 Family History Family History Father Hypertension, Onset Age: 83 Family history of cardiovascular disease, Onset Age: 82 Mother Hypertension, Onset Age: 65 Other Arthritis Social History Social History Social History: The patient has 4 children. She is a homemaker. She lives with her . Code status full code Smoking status: Never smoker Second hand tobacco smoke exposure: No Alcohol intake: never Substance use: never Lack of Transportation: No Lack of Food: Never True Current Housing: I Have Housing Concerned About Future Housing: No Difficulty Paying Gas/Electric Bills: No Difficulty Paying for Meds: No Currently Unemployed: No Education: Associate Degree Difficulty w/ Childcare or Family Care: No Living arrangements: with family Spiritual care concerns: No Exam Narrative: APPEARANCE: Well appearing, no pain, no distress, well-nourished. HEAD: normocephalic, atraumatic. EYES: PERRLA/EOMI, conjunctivae clear. NOSE: Normal no drainage EARS:TMS clear with good light reflex. THROAT: Pharynx clear, no exudate. NECK: Supple. No adenopathy, no masses. RESPIRATORY: Airway patent, respirations nonlabored. Clear to auscultation bilaterally, no rales, rhonchi, wheezing. CARDIOVASCULAR: Regular rate and rhythm without murmurs rubs or gallops. ABDOMINAL: Soft, nontender, nondistended, normal bowel sounds MUSCULOSKELETAL: Moves all extremities. Strength/ROM intact, No edema, No calf tenderness. NEURO: Alert. Cranial nerves II through XII intact. Grossly intact SKIN: Warm, dry. Normal Color Course Course Emergency Course: No acute fractures. Patient was discharged home with medications for pain control Vital Signs Vital signs: Vital Signs Temperature 97.3 F L 10/02/23 15:42 Pulse Rate 70 10/02/23 15:42 Respiratory Rate 20 10/02/23 15:42 Blood Pressure 130/63 10/02/23 15:42 Pulse Oximetry 100 10/02/23 15:42 Oxygen Delivery Room Air 10/02/23 15:42
[2023-10-02] MEDS: KETOROLAC 30 MG/ML VIAL (*BKC) IM (17:02)
[2023-10-02] MEDS: HYDROcodone/acetaminophen (*CRX) 5-325 MG TABLET 1 TAB PO (17:02)
[2023-10-02] MEDS: CYCLOBENZAPRINE HCL 10 MG TABLET PO (17:02)
== END 2023-10-02 17:07 | disposition home or self-care (01) ==
PROVIDERS: Emergency Provider Emergency Medicine; PCP Internal Medicine
DX: M54.50 Low back pain, unspecified (principal); I10 Essential (primary) hypertension; G47.9 Sleep disorder, unspecified; M17.0 Bilateral primary osteoarthritis of knee; Z96.651 Presence of right artificial knee joint; Z86.2 Personal history of diseases of the blood and blood-forming organs and certain disorders involving the immune mechanism; Z79.899 Other long term (current) drug therapy
CPT/HCPCS: 72100; 96372; 99283; A9270; J1885

== ENCOUNTER 2023-11-20 10:00 | Outpatient (RCR) | payer OTHER, SELFPAY ==
--- NOTE | 2023-11-12 11:47 | PTOPEVAL1 ---
Assessment and note entered by Mj Owen Evaluation Information Assessment Status Evaluation ICD-10 Condition Codes (PT) Pain in low back M54.50,M25.561,Pain in left knee M25.562 Onset 11/11/22 Subjective Information Pt. reports that she had the right knee replacement about 1 year ago. She reports that she has had constant pain in the right knee since surgery. She states that she also has arthritis in the left knee, however her right knee pain is more intense. She states that she has inflammation in the right knee constantly. she reports that she can only walk for about 15-20 minute before having to sit due to knee pain. She reports that she will occasionally use a cane in order to walk through the store. She states that she has also noted developing low back pain over the past 2 weeks. She states that back pain will increase with standing and walking. She states that back pain will disrupt her sleep during the night. She states that she has seen decrease in her activity over the recent months. She states that she is able to do light tasks around the home , but is very slow, due to inability to stand for very long. she reports that her goal for therapy is to reduce her back and knee pain. Reported Pain Level Pain Score 6,5,5: Self Report Assessment PT Clinical Summary Pt. is a 63 year old female who enters the clinic with chronic bilateral knee pain and low back pain . She presents with impaired right knee ROM, impaired gait mechanics, impaired trunk mobility, proximal l.e. weakness, impaired flexibility, impaired balance and pain. Continued skilled PT is indicated in order to improve these areas to allow the pt. to achieve improved comfort with IADL performance and to improve standing endurance and reduce pain. Plan of Care Interventions Electrical Stimulation,Gait Training,Hot Pack/Cold Pack,Manual Therapy,Mechanical Traction,Neuro Re- education,Patient/Caregiver Educati,Therapeutic Activities,Therapeutic Exercise PT Services Indicated Yes Treatment Frequency and 2x/week x 10 visits Duration These treatments will address the objective and functional deficits as defined above. The patient will be advanced safely and appropriately in order for the patient to progress towards his/her prior level of function. Additional exercises will be introduced and as well as a comprehensive home exercise program upon discharge, if needed, ?to ensure carryover of functional gains achieved in the clinic. This treatment plan has been reviewed and agreement upon by the patient.
--- NOTE | 2023-11-12 11:47 | OPREHPOC ---
Outpatient Therapy Plan of Care This is a Multidisciplinary Plan of Care that may contain components documented by all disciplines (PT, OT, and ST.) PT Problem 1 PT Problem #1 Knowledge Deficit PT Goal 1 Goal / Goal Update Pt. will be independent with a HEP addressing trunk mobility and core stability Target Visit 2 PT Problem 2 PT Problem #2 Pain PT Goal 1 Goal / Goal Update Pt. will report pain levels at 4/10 at worst with prolonged standing activities. Pt. will report bein able to sleep through the night without pain disturbance. Target Visit 10 PT Problem 3 PT Problem #3 Impaired Balance PT Goal 1 Goal / Goal Update Pt. will be able to maintain tandem stance for duration of 30 seconds on both right and left foot forward indicating improved stability in standing Pt. will present with 5/5 proximal l.e. strength. Target Visit 10 PT Problem 4 PT Problem #4 Impaired Functional Mobil PT Goal 1 Goal / Goal Update Pt. will be able to tolerate 20-30 minutes of standing therapeutic activities in the clinic with 4/10 pain at worst and without rest. Target Visit 10
--- NOTE | 2024-01-22 11:03 | PTOPDC ---
Assessment and note entered by Shelley Joseph, PT Discharge Report Assessment Status Discharge - Pt Not Present ICD-10 Condition Codes (PT) Pain in low back M54.50,M25.561,Pain in left knee M25.562 Onset 11/11/22 Subjective Information pt was not seen this date Assessment PT Clinical Summary Flaquita has received 3 PT sessions, from Nov 11 to Nov 19. She then stopped attending therapy. Discharge PT services. The goals were not addressed. Plan of Care PT Services Indicated No
== END 2024-01-22 11:36 | disposition home or self-care (01) ==
LOC: ANHPT 10:00
PROVIDERS: PCP Internal Medicine; Visit Provider Family Medicine
DX: M25.561 Pain in right knee (principal); M25.562 Pain in left knee; M54.50 Low back pain, unspecified; G89.29 Other chronic pain
CPT/HCPCS: 97110; 97140; 97161; 97530

== ENCOUNTER 2023-11-21 09:36 | Emergency (ER) | payer OTHER, SELFPAY ==
--- NOTE | ~2023-11-21 | XR_ITS ---
EXAMINATION: XR hip RT min 3V w AP pelvis DATE: 11/21/2023 10:43 INDICATION: Right hip pain post fall TECHNIQUE: Anteroposterior view of the pelvis and anteroposterior, frog leg and cross-table lateral v iews of the right hip were obtained. COMPARISON: None. FINDINGS: Bone alignment is normal. No fracture. No osteonecrosis. Mild osteoarthritis at the bilateral sacroil iac joints. Mild osteoarthritis at the right hip with mild posterior predominant nonuniform joint spa ce narrowing best appreciated on the crosstable lateral projection. Small bone islands in the supra-a cetabular region, right ischium and left pubic body. Soft tissues are unremarkable. IMPRESSION: 1. 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 No acute osseous abnormality. Reviewed, dictated and finalized at location A. IMPRESSION: 1. 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 No acute osseous abn ormality.
--- NOTE | ~2023-11-21 | XR_ITS ---
EXAMINATION: XR ankle RT min 3V, XR foot RT min 3V DATE: 11/21/2023 10:43 INDICATION: EXAMINATION: XR ankle RT min 3V, XR foot RT min 3V DATE: 11/21/2023 10:43 INDICATION: Right foot and ankle pain post fall TECHNIQUE: 1. Anteroposterior, mortise, additional oblique and lateral view of the right ankle were obtained. 2. Dorsoplantar, two oblique and lateral views of the right foot were obtained. COMPARISON: None. FINDINGS: Alignment of the right foot and ankle is normal. No fracture. Joint spaces are well maintained. Small plantar calcaneal spur. No ankle joint effusion. The soft tissues are unremarkable. IMPRESSION: 1. Small plantar calcaneal spur. No acute osseous abnormality at the right foot or ankle. TECHNIQUE: Anteroposterior, oblique, mortise, and lateral views of the affected ankle were obtained. COMPARISON: None. FINDINGS: IMPRESSION: 1. Reviewed, dictated and finalized at location A. IMPRESSION: 1. Small plantar calcaneal spur. No acute osseous abnormality at the right foot or ankle. TECHNIQUE: Anteroposterior, oblique, mortise, and lateral views of the affected ankle were obtained. COMPARISON: None. FINDINGS: IMPRESSION: 1. IMPRESSION: 1. Small plantar calcaneal spur. No acute osseous abnormality at the right foot or ankle. TECHNIQUE: Anteroposterior, oblique, mortise, and lateral views of the affected ankle were obtained. COMPARISON: None. FINDINGS: IMPRESSION: 1.
--- NOTE | ~2023-11-21 | CT_ITS ---
EXAMINATION: CT lumbar spine wo con DATE: 11/21/2023 10:56 INDICATION: Fall with low back pain TECHNIQUE: Computed tomography (CT) of the lumbar spine was performed without intravenous contrast. A utomated exposure control and iterative reconstruction technique were employed. The dose-length produ ct was 561.54 mGy-cm. COMPARISON: Lumbar spine radiographs dated 10/02/2023 FINDINGS: Alignment is normal. There is a new superior endplate compression fracture with depression with up to 20% vertebral body height loss at the right central aspect of the L2 vertebral body and subtle trans verse lucent fracture line. Remaining vertebral body heights remain normal. No other fractures identi fied. And disc heights are normal. Disc bulge with minimal central canal stenosis at L1-L2, mild to m oderate central canal stenosis at L2-L3 and L3-L4 and moderate central canal stenosis at L4-L5. Proba ble facet osteoarthritis, severe bilaterally at L5-S1, moderate on the left and mild on the right at L4-L5 and mild at the more cephalad lumbar levels. There is fusion across the right L3-L4 facet joint . There is mild bilateral neural foraminal stenosis at L4-L5 and on the right at L3-L4. Paravertebral soft tissues are unremarkable. IMPRESSION: 1. Mild lumbar spondylosis with acute mild superior endplate compression fracture at L2. Reviewed, dictated and finalized at location A. IMPRESSION: 1. Mild lumbar spondylosis with acute mild superior endplate compression fractu re at L2.
[2023-11-21 09:48] VITALS: BP 171/87; PULSE 72; RESP 18; TEMP 36.5; O2SAT 99
--- NOTE | 2023-11-21 10:22 | ED.FALL ---
HPI - Fall General Chief Complaint: Fall Stated Complaint: fall Time Seen by Provider: 11/21/23 10:00 History of Present Illness HPI Narrative: 63-year-old female with history of hypertension presents to emergency department after mechanical fall. Patient states she was walking outside when she accidentally rolled her right ankle and fell to the ground. She is complaining of pain to her low back, right ankle and right foot. She states she did not hit her head or lose consciousness. She is not anticoagulated. She denies other injuries acquired. Denies saddle anesthesia, bowel or bladder incontinence or retention. Patient ambulates with a cane at baseline. Related Data Home Medications Medication Instructions Recorded Confirmed melatonin 5 mg tablet 5 mg PO HS PRN Insomnia 04/07/22 07/09/23 metoprolol tartrate 25 mg tablet 12.5 mg PO BID 04/07/22 07/09/23 Allergies Allergy/AdvReac Type Severity Reaction Status Date / Time No Known Allergies Allergy Verified 11/21/23 09:55 Review of Systems Review of Systems: All systems reviewed & are unremarkable except as noted in HPI and below PMFSH Past Medical History Medical History Acute blood loss anemia Anemia Arthritis Bilateral calf pain Bilateral knee pain Chronic headaches Degenerative joint disease of knee Depression with anxiety Frequency of urination Hearing loss History of angiography HTN (hypertension) Knee effusion Left knee DJD Left knee pain Lower leg pain Nausea Right knee DJD Right knee pain Seasonal allergies Sleep disorder Stomach ulcer Surgical History Surgical History H/O esophagogastroduodenoscopy S/P total knee arthroplasty RT TKA 04/22/2022 Family History Family History Father Hypertension, Onset Age: 83 Family history of cardiovascular disease, Onset Age: 82 Mother Hypertension, Onset Age: 65 Other Arthritis Social History Social History Social History: The patient has 4 children. She is a homemaker. She lives with her . Code status full code Smoking status: Never smoker Second hand tobacco smoke exposure: No Alcohol intake: never Substance use: never Lack of Transportation: No Lack of Food: Never True Current Housing: I Have Housing Concerned About Future Housing: No Difficulty Paying Gas/Electric Bills: No Difficulty Paying for Meds: No Currently Unemployed: No Education: Associate Degree Difficulty w/ Childcare or Family Care: No Living arrangements: with family Spiritual care concerns: No Exam Narrative: GENERAL: Well-appearing, well-nourished, and in no acute distress. HEAD: Normocephalic, atraumatic. ENT: Nares clear, no rhinorrhea or epistaxis. Mucous membranes moist. NECK: No midline cervical spinous tenderness, step-offs or deformities BACK: minimal tenderness to the lumbar spine and paraspinous muscles without crepitus, step-offs or deformities. No tenderness to thoracic spine. CHEST: Clear to auscultation. No respiratory distress. HEART: Regular rate and rhythm. No murmur heard. Normal peripheral pulses. ABDOMEN: Soft, nontender, nondistended, normal active bowel sounds. EXTREMITIES: Tenderness to the right lateral malleolus and diffusely through the foot with no deformity, edema, ecchymosis. Minimal tenderness to the lateral aspect of the right hip. Full range of motion of the entire extremity. DP pulse 2 +. Sensation intact. Strength 5/5 in BLE. No saddle anesthesia. SKIN: Warm, dry, no rash. NEURO: No focal deficits. Alert and oriented x3 Course Vital Signs Vital signs: Vital Signs Temperature 97.7 F 11/21/23 09:48 Pulse Rate 72 11/21/23 09:48 Respiratory Rate 18
[2023-11-21] MEDS: ACETAMINOPHEN 325 MG TABLET 650 MG PO (11:09)
[2023-11-21 11:37] VITALS: BP 136/79; PULSE 70; RESP 17; O2SAT 100
[2023-11-21 12:44] VITALS: BP 120/73; PULSE 72; RESP 20; TEMP 36.7; O2SAT 100
--- NOTE | 2023-11-23 11:06 | PC.NURSE ---
able to get a follow up with Dr Alvarez Neuro-surg, spoke with energy control officer
== END 2023-11-21 12:46 | disposition home or self-care (01) ==
PROVIDERS: Emergency Provider Physician Assistant; PCP Internal Medicine
DX: S32.020A Wedge compression fracture of second lumbar vertebra, initial encounter for closed fracture (principal); S93.401A Sprain of unspecified ligament of right ankle, initial encounter; S73.101A Unspecified sprain of right hip, initial encounter; I10 Essential (primary) hypertension; M16.11 Unilateral primary osteoarthritis, right hip; M46.1 Sacroiliitis, not elsewhere classified; M17.0 Bilateral primary osteoarthritis of knee; M47.816 Spondylosis without myelopathy or radiculopathy, lumbar region; G47.9 Sleep disorder, unspecified; Z96.651 Presence of right artificial knee joint; Z86.2 Personal history of diseases of the blood and blood-forming organs and certain disorders involving the immune mechanism; Z79.899 Other long term (current) drug therapy; Z79.52 Long term (current) use of systemic steroids; W18.39XA Other fall on same level, initial encounter
CPT/HCPCS: 72131; 73502; 73610; 73630; 99284; A9270

== ENCOUNTER 2024-07-12 10:15 | Outpatient (RCR) | payer OTHER, SELFPAY ==
--- NOTE | 2024-06-07 13:27 | OPREHPOC ---
Outpatient Therapy Plan of Care This is a Multidisciplinary Plan of Care that may contain components documented by all disciplines (PT, OT, and ST.) PT Problem 1 PT Problem #1 Knowledge Deficit PT Goal 1 Goal / Goal Update *independent with HEP Target Visit 10 PT Goal 2 Goal / Goal Update * pt demonstrate correct posture with lifting waist/floor height Target Visit 10 PT Problem 2 PT Problem #2 Pain PT Goal 1 Goal / Goal Update * pt report pain rating at worst in back of 5/10 Target Visit 10 PT Goal 2 Goal / Goal Update * pt report with sleeping, awaken 2x/night due to pain Target Visit 10 PT Problem 3 PT Problem #3 Impaired Strength PT Goal 1 Goal / Goal Update * increase strength of trunk and LE's to gross strength of 4+/5, to improve stability to spine and knees Target Visit 10 PT Goal 2 Goal / Goal Update single leg standing R and L x 10 seconds with good stability Target Visit 10 PT Problem 4 PT Problem #4 Impaired Functional Mobility PT Goal 1 Goal / Goal Update * 2 minute walking test distance of 475' Target Visit 10
--- NOTE | 2024-06-07 13:27 | PTOPEVAL1 ---
Assessment and note entered by Shelley Joseph, PT Evaluation Information Assessment Status Evaluation ICD-10 Condition Codes (PT) Pain in low back M54.50,Pain in right knee M25.561 ,Pain in left knee M25.562 weakness Onset Nov 2023 Subjective Information fell in November 2023- L 2 fracture, on bed rest and used back brace ~ 3 wks; no longer use; chronic knee pain- s/p R TKR in 2022- remains swollen and painful, dr said x ray was OK and had fluid removed problems with stairs and more pain, only go upstairs once/day at home; sleeping and standing limited due to pain activity: independent with self care and light home tasks; more pain with standing and walking too much; Reported Pain Level Pain Score Self Report Additional Pain Score Comments BACK: pain range in the past week -09/25 increase: standing 30 minutes in kitchen, walk 10- 15 minutes decrease pain: cushion behind back; tylenol not using heat/ice- instruct on PRN use KNEES: pain range in the past week -09/25; R lateral knee, L knee medial knee increase pain: stairs decrease pain: sit, rest, tylenol reports R knee swelling/inflammed with sleeping, both knees and back hurt, take some sleeping meds, wake up 4x/night due to pain Assessment PT Clinical Summary Flaquita has the diagnosis of low back pain and bilateral knee pain. She reports issues with chronic back and knee pain, with R TKR in 2022. She had a fall in November 2023, with L2 fracture. Self assessment with LE functional scale rating of 24% limitation in activity level. Reports her standing, walking and sleeping are affected due to pain. With the evaluation: she has decreased strength of trunk, hips and LE's; pain in increased with supine SLR on R and R knee flexion and extension and L knee flexion motions; 2 minute walking test distance of 425' with pain 4/10; standing posture of increased lumbar lordosis. Skilled PT services are indicated for modalities to decrease pain, therapeutic exercises to increase strength of trunk and LE's with education for HEP and posture/body mechanics. Plan of Care Interventions Electrical Stimulation,Hot Pack/Cold Pack,Manual Therapy,Neuro Re-education,Patient/Caregiver Education,Therapeutic Activities,Therapeutic Exercise,Ultrasound,Other Other Interventions taping PT Services Indicated Yes Treatment Frequency and 1-2x/wk for 10 visits Duration These treatments will address the objective and functional deficits as defined above. The patient will be advanced safely and appropriately in order for the patient to progress towards his/her prior level of function. Additional exercises will be introduced and as well as a comprehensive home exercise program upon discharge, if needed, ?to ensure carryover of functional gains achieved in the clinic. This treatment plan has been reviewed and agreement upon by the patient.
--- NOTE | 2024-07-12 10:57 | OPREHPOC ---
Outpatient Therapy Plan of Care This is a Multidisciplinary Plan of Care that may contain components documented by all disciplines (PT, OT, and ST.) PT Problem 1 PT Problem #1 Knowledge Deficit PT Goal 1 Goal / Goal Update *independent with HEP Target Visit 10 Progress Met PT Goal 2 Goal / Goal Update * pt demonstrate correct posture with lifting waist/floor height Target Visit 10 Progress Met PT Problem 2 PT Problem #2 Pain PT Goal 1 Goal / Goal Update * pt report pain rating at worst in back of 5/10 Target Visit 10 Progress Partially Met PT Goal 2 Goal / Goal Update * pt report with sleeping, awaken 2x/night due to pain Target Visit 10 Progress Met PT Problem 3 PT Problem #3 Impaired Strength PT Goal 1 Goal / Goal Update * increase strength of trunk and LE's to gross strength of 4+/5, to improve stability to spine and knees Target Visit 10 Progress Partially Met PT Goal 2 Goal / Goal Update single leg standing R and L x 10 seconds with good stability Target Visit 10 Progress Met PT Problem 4 PT Problem #4 Impaired Functional Mobility PT Goal 1 Goal / Goal Update * 2 minute walking test distance of 475' Target Visit 10 Progress Met
--- NOTE | 2024-07-12 10:57 | PTOPDC ---
Assessment and note entered by Edgar Laboy, PT Evaluation Information Assessment Status Discharge ICD-10 Condition Codes (PT) Pain in low back M54.50,Pain in right knee M25.561 ,Pain in left knee M25.562 Onset Nov 2023 Subjective Information Reports that overall she feels she s good. She still suffers from back pain off and on. She struggles on stairs with both back and knee pain while climbing. She is also not sleeping as well as she was prior to injury. Reported Pain Level Pain Score 5,7: Self Report Assessment PT Clinical Summary Patient has met all goals for therapy and is suitable for discharge to [facility] at this time. Will continue compliance with HEP for long-term stability and pain relief. Plan of Care PT Services Indicated Yes
== END 2024-07-12 14:54 | disposition home or self-care (01) ==
LOC: ANHGOSHPT 10:15
PROVIDERS: PCP Internal Medicine; Visit Provider Family Medicine
DX: M54.50 Low back pain, unspecified (principal); M25.561 Pain in right knee; M25.562 Pain in left knee; G89.29 Other chronic pain
CPT/HCPCS: 97014; 97110; 97161; 97530; G0283

== ENCOUNTER 2024-09-07 22:24 | Emergency (ER) | payer OTHER, SELFPAY ==
--- OUTSIDE RECORDS SUMMARY | 2024-09-07 22:26 | XMS_ITS | Clinical Summary ---
Author Organization [facility] Address [address] [place] [address] Care Team Providers Care Coloring Machine Operator Name Role Phone Isaias Chung MD Primary Care Provider [phone] [facility],non-[facility]ly [facility], [facility] and Associated Physician Practices is amultiple site organization consisting of ambulatory clinics and hospital sitesin [place], [place], [place] and [place]. This disclosure is being madepursuant to the Care Everywhere program and may not contain all information available regarding this patient. Last updated 17.[facility] Allergies No known active allergies Medications * Be aware that medications may not be up to date on this document. Alwaysverify current medications with the patient. 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 Family History Medical History Relation Name Comments Leukemia Brother None Known Father Status: d Hypertension Mother Status: d Leukemia Paternal Uncle 1 Leukemia Paternal Uncle 2 Relation Name Status Comments Brother Father Mother Paternal Uncle 1 Paternal Uncle 2 Social History Tobacco Use Types Packs/Day Years Used Date Smoking Tobacco: Never Smokeless Tobacco: Never Tobacco Cessation:Counseling Given: No Alcohol Use Standard Drinks/Week Comments No 0 (1 standard drink = 0.6 oz pur e alcohol) Comments No Sex and Gender Information Value Date Recorded Sex Assigned at Not on file Legal Sex 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 Gender Identity Not on file Sexual Orientation Not on file Last Filed Vital Signs Vital Sign Reading Time Taken Comments Blood Pressure 148/87 12/07/2023 9:26 AM CDT 162 /92 Pulse 63 12/07/2023 9:26 AM CDT Temperature 36.4 C (97.5 F) 12/07/2023 9:26 AM CDT Respiratory Rate 18 12/07/2023 9:26 AM CDT Oxygen Saturation 99% 12/07/2023 9:26 AM CDT Inhaled Oxygen Concentration - - Weight 67.9 kg (149 lb 9.6 oz) 12/07/2023 9:26 A M CDT Height 160 cm (5' 3) 12/07/2023 9:26 AM CDT Body Mass Index 26.5 12/07/2023 9:26 AM CDT Plan of Treatment Health Maintenance Due Date Last Done Comments COLON MONITORING 1961 COLONOSCOPY - COLON CA SCREENING 1961 CT COLONOGRAPHY - COLON CA SCREENING 1961 FIT - COLON CA SCREENING 1961 FLEX SIG - COLON CA SCREENING 1961 LIPID TESTING 1961 HIV SCREENING 1976 HEPATITIS C SCREENING 06/15/1979 DTAP/TDAP/TD VACCINES (1 - Tdap) 1980 PNEUMOCOCCAL VACCINE 50+ (1 of 1 - PCV) 06/20/2011 ZOSTER VACCINE (1 of 2) 06/20/2011 MAMMOGRAM 12/07/2022 12/07/2020, 0802/2019, 10/13/2018 COVID-19 VACCINE ( season) 2023 06/04/2020, 05/14/2020 DEPRESSION SCREENING 02/17/2024 INFLUENZA VACCINE (#1) 2024 4, 12/12/2020, 01/19/2019 PAP SMEAR 11/27/2024 11/27/2021 SCREENING FOR DIABETES 06/17/2025 3, 06/17/2022, 06/17/2022, Additional history exists COLOGUARD (AGES 45-75) - COLON CA SCREENING 10/22/2025 10/22/2022 Colorectal Cancer Screening 10/22/2025 Respiratory Syncytial Virus (RSV) Vaccine Pt: or over 60 yrs (1 - 1-dose 75+ series) 2036 HEPATITIS B VACCINE Aged Out No longe r eligible based on patient's age to complete this topic HIB VACCINE Aged Out No longer eligi ble based on patient's age to complete this topic HPV VACCINE Aged Out No longer eligi ble based on patient's age to complete this topic MENINGOCOCCAL (Group B) VACCINE SHARED DECISION-MAKING Aged Out No longer eligible based on patient's age to complete this topic MENINGOCOCCAL GROUPS A/C/Y/W VACCINE Aged Out No longer eligible based on patient's age to complete this topic Medical Devices Implanted Type Area Certified Anesthesiologist Assistant Device Identifier Shelf Expiration Date Model / Serial / Lot Mrk Biop Site Celero Implanted:Qty: 1 on 10/21/2018 by Alison Dior MD at [facility] Right: Breast Hologic 11/19/2018 [employer] O-2S / / [id number] Procedures Procedure Name Priority Date/Time Associated Diagnosis Comments MAMMO BILAT SCREENING W TRACIE Routine 12/07/2020 9:57 AM CDT Breast cancer screening by mammogram from Last 3 Months or Most Recently Relevant to Health Maintenance Results * MAMMO BILAT SCREENING W TRACIE (12/07/2020 9:57 AM CDT) Anatomical Region Laterality Modality Breast Bilateral Mammography 12/07/2020 11:1 7 AM CDT Impressions 12/07/2020 12:38 PM CDT IMPRESSION: Benign mammogram, without evidence of malignancy. RECOMMENDATION: Screening mammography in one year, pending no interval breast concerns. Patient will be notified of the results by lay letter. OVERALL ASSESSMENT: BI-RADS CATEGORY 2: BENIGN. Dictated by Vania Riggins MD (vice president diversity). I, Dr. FLOR NAM M.D. have personally reviewed and interpreted this examination/study. This report was electronically signed by FLOR NAM M.D. on 12/07/2020 12:38 PM . Narrative 12/07/2020 12:38 PM CDT EXAMINATION: DIGITAL MAMMO BILAT SCREENING W TRACIE AND WITH CAD DATE OF EXAM: 12/07/2020 10:00 AM HISTORY: Screening. History of right subareolar papilloma status post biopsy RISK ASSESSMENT CALCULATION: Patient completed a breast cancer risk assessment during her appointment. Based upon the information she provided and her mammographic breast density, her lifetime risk of developing breast cancer is 6 % (Average Risk <15%; Intermediate / Moderate Risk 15-19%; High Risk > 20%). COMPARISON: Prior breast imaging studies back to 10/30/2015, with the most recent dated 10/17/2019. TECHNIQUE: Tomosynthesis (3-D) and reconstructed C - view (synthetic 2-D) images acquired and reviewed in the bilateral craniocaudal and mediolateral oblique projections. A total of 6 images were obtained. Computer-aided detection (CAD) was utilized. BREAST PARENCHYMAL COMPOSITION: Category B: There are scattered areas of fibroglandular density. FINDINGS: There are no suspicious findings or evidence of malignancy on mammography. There are benign changes noted. Subareolar right biopsy clip. There is no significant change from the prior. us Provider Unknown MAMMO ORDERABLES Final Result from Last 3 Months or Most Recently Relevant to Health Maintenance Insurance [facility] Care Teams Coloring Machine Operator Relationship Specialty Start Date End Date Isaias Chung MD [address] [place] [address] [place] [phone] PCP - General Family Medicine 12/07/23
--- OUTSIDE RECORDS SUMMARY | 2024-09-07 22:26 | XMS_ITS | Data Portability ---
Author Organization [facility] [place] Address [address] [place] [address] Care Team Providers Care Family Medicine Physician Name Role Phone YARELIS MCKINLEY Primary Care Provider Assessment Encounter Date Assessment Date Assessment LastModified by Organization Details LastModified Time 11/27/2021 11/27/2021 healthy female exam/menopause patient declines std testing pap done, discussed guidelines mammogram ordered and encouraged colonoscopy due 2026 dexa ordered and encouraged Encouraged weight bearing exercise and 1500mg daily of Calcium with Vitamin D FU 1 year or prn [id number] Not available 11/29/2021 09:34:48 06/17/2022 06/17/2022 Osteoporosis Discussed dexa results in detail and risks of osteoporosis/os teopenia continue/increa se calcium and weight bearing exercise Discussed use of alendronate, precautions given, will start if labs normal Vit D, Calcium, creatinine levels Repeat Dexa 2 years WWE due November Not available 06/17/2022 14:30:55 Plan of Treatment Reminders Order Date Submit Date Provider Last Modified By Organization Details Last Modified Time Details Appointments None recorded. Lab calcium, ionized + total, serum 2022 023 [facility] (Lab), [address], [place], [address], 09:41:53 CBC w/ auto diff 2022 023 [facility] (Lab), [address], [place], [address], 3 09:41:51 CMP, serum or plasma 2022 023 [facility] (Lab), [address], [place], [address], 3 09:41:51 TSH, serum or plasma 2022 023 [facility] (Lab), [address], [place], [address], 3 09:41:52 vitamin D, 25-hydroxy, total, serum 2022 023 [facility] (Lab), [address], [place], [address], 3 09:41:52 Referral None recorded. Procedures None recorded. Surgeries None recorded. Imaging None recorded. Medication Orders alendronate 70 mg tablet 2022 023 [id number], [address] [facility], [place], [place], [id number], 3 14:30:10 Patient TargetsNo targets recorded. Patient InstructionsNo instructions recorded. Reason for Referral None Reported. Results Created Date Observation Date Name Description Value Unit Range Abnormal Flag Note LastModifiedBy Organization Detail LastModifiedTime 11/28/19 22 11/27/2021 IMAGE GUIDE D PAP AND HPV REGAR DLESS image guided Pap, HPV regardless of Pap result SEE RESULT S BELOW CASE REPOR T: Cytol ogy Gynec ologi rebekah Repor t Case: [id number] Autho riaman g Provi lavell: Dasia Drew MD Colle cted: 11/27 1633 Order ing Locat ion: [place] Path[facility] Recei florentin: 11/28 0421 First Scree n: Erika Sahu [place] Rescr een: Nacha mpass ak, Sivil ay, CT Speci men: Scree nicky Pap - Image d, Cervi x STATE MENT OF ADEQU ACY: Satis facto ry for evalu ation Trans forma tion zone compo nent prese nt FINAL DIAGN OSIS: Negat yara for Intra epith elial Lesio n or [place] (NIL) . Atrop hy prese nt. Elect noemí puri dewayne d by Susan estes, Chet shaver, CT on 12/02 at 8:53 PM ----- ----- ----- ----- ----- ----- ----- ----- ----- ----- ----- ----- ----- ----- ----- ----- ----- ---- HPV RESUL TS: HPV mRNA E6/E7 : No HPV mRNA Detec ernst NOTE: This high risk HPV mRNA assay detec ts fourt een high- risk HPV types (16, 18, 31, 33, 35, 39, 45, 51, 52, 56, 58, 59, 66, 68) witho ut diffe renti ation . COMME NT: Note: This speci men was revie wed by a Cytot echno logis t and/o r Patho logis t (as indic ated in this repor t) after evalu ation using the Thinp rep Imagi ng Syste m. CLINI REBEKAH INFOR MATIO N: Menst rual Statu s: LMP (if appli cable ): Clini rebekah Histo ry/Pr eviou s Pap: Type of Neopl ivy (if appli cable ): Signi fican t Clini rebekah Findi ngs: Other Histo ry: Hormo mckenna (if appli cable ): PAP EDUCA RAMY L NOTE: The Pap Test is a scree nicky test with an inher ent false negat yara rate. Liqui d-bas ed sampl ing may decre ase, but will not elimi brady, false negat yara resul ts. A negat yara resul t does not precl ude the prese nce and/o r devel opmen t of disea se, since the prese nce of abnor mal cells in the sampl e depen ds on the locat ion of the lesio n and sampl ing techn ique. Gideon nued regul ar scree nicky is the best metho d of cance r preve ntion . If repor ernst cytol ogic findi ng do not corre late with physi rebekah and/o r histo rical findi ngs, furth er inves tigat ion is recom jose d, as clini fatmata price nted. Not Available [facility] [address] [place], [address], 12/02/2021 21:56:33 06/18/19 23 06/17/2022 CMP(C OMPRE HENSI VE METAB OLIC PANEL ) sodium 139 mmol/ L 133-[address] [facility] (Lab) [address], [place], [address], 2022 09:41:50 06/18/19 23 06/17/2022 CMP(C OMPRE HENSI VE METAB OLIC PANEL ) potassium 4.5 mmol/ L 3.5-5. [address] [facility] (Lab) [address], [place], [address], 2022 09:41:50 06/18/19 23 06/17/2022 CMP(C OMPRE HENSI VE METAB OLIC PANEL ) chloride 102 mmol/ L 98-[address] [facility] (Lab) [address], [place], [address], 2022 09:41:50 06/18/19 23 06/17/2022 CMP(C OMPRE HENSI VE METAB OLIC PANEL ) carbon dioxide 30 mmol/ L 21-[address] [facility] (Lab) [address] [place], [address], 2022 09:41:50 06/18/19 23 06/17/2022 CMP(C OMPRE HENSI VE METAB OLIC PANEL ) anion gap 7 mmol/ L 4-[address] [facility] (Lab) [address] [place], [address], 2022 09:41:50 06/18/19 23 06/17/2022 CMP(C OMPRE HENSI VE METAB OLIC PANEL ) blood urea nitrogen 25 mg/dL 7-25 Not Available [facility] (Lab) [address], [place], [address], 2022 09:41:50 06/18/19 23 06/17/2022 CMP(C OMPRE HENSI VE METAB OLIC PANEL ) creatinine 0.79 mg/dL 0.60-[address] [facility] (Lab) [address], [place], [address], 2022 09:41:50 06/18/19 23 06/17/2022 CMP(C OMPRE HENSI VE METAB OLIC PANEL ) egfrcr (CKD-epi 2020) 86 mL/mi n/1.7 3_m2 >=[address] [facility] (Lab) [address], [place], [address], 2022 09:41:50 06/18/19 23 06/17/2022 CMP(C OMPRE HENSI VE METAB OLIC PANEL ) calcium 9.4 mg/dL 8.3-[address] [facility] (Lab) [address], [place], [address], 2022 09:41:50 06/18/19 23 06/17/2022 CMP(C OMPRE HENSI VE METAB OLIC PANEL ) glucose 76 mg/dL 70-[address] [facility] (Lab) [address], [place], [address], 2022 09:41:50 06/18/19 23 06/17/2022 CMP(C OMPRE HENSI VE METAB OLIC PANEL ) protein, total 7.5 g/dL 6.4-8. [address] [facility] (Lab) [address], [place], [address], 2022 09:41:50 06/18/19 23 06/17/2022 CMP(C OMPRE HENSI VE METAB OLIC PANEL ) albumin 4.0 g/dL 3.5-5. [address] [facility] (Lab) [address], [place], [address], 2022 09:41:50 06/18/19 23 06/17/2022 CMP(C OMPRE HENSI VE METAB OLIC PANEL ) ALT 12 units /L 9-[address] [facility] (Lab) [address], [place], [address], 2022 09:41:50 06/18/19 23 06/17/2022 CMP(C OMPRE HENSI VE METAB OLIC PANEL ) alkaline phosphatase 74 units /L 34-[address] [facility] (Lab) [address], [place], [address], 2022 09:41:50 06/18/19 23 06/17/2022 CMP(C OMPRE HENSI VE METAB OLIC PANEL ) AST 17 units /L 13-[address] [facility] (Lab) [address], [place], [address], 2022 09:41:50 06/18/19 23 06/17/2022 CMP(C OMPRE HENSI VE METAB OLIC PANEL ) bilirubin, total 0.5 mg/dL 0.2-1. [address] [facility] (Lab) [address], [place], [address], 2022 09:41:50 06/18/19 23 06/17/2022 CBC W/DIF F WBC 8.5 10'3/ uL 3.6-[address] [facility] (Lab) [address], [place], [address], 2022 09:41:51 06/18/19 23 06/17/2022 CBC W/DIF F RBC 4.49 10'6/ uL (based on docume nted legal sex) 4.10-[address] [facility] (Lab) [address], [place], [address], 2022 09:41:51 06/18/19 23 06/17/2022 CBC W/DIF F HGB 11.7 g/dL (based on docume nted legal sex) 11.9-1 [address] [facility] (Lab) [address], [place], [address], 2022 09:41:51 06/18/19 23 06/17/2022 CBC W/DIF F HCT 39.7 % (based on docume nted legal sex) 37.4-[address] [facility] (Lab) [address], [place], [address], 2022 09:41:51 06/18/19 23 06/17/2022 CBC W/DIF F MCV 88.4 fL 82.0-[address] [facility] (Lab) [address], [place], [address], 2022 09:41:51 06/18/19 23 06/17/2022 CBC W/DIF F MCH 26.1 pg 27.0-3 [address] [facility] (Lab) [address], [place], [address], 2022 09:41:51 06/18/19 23 06/17/2022 CBC W/DIF F MCHC 29.5 g/dL 32.0-3 [address] [facility] (Lab) [address], [place], [address], 2022 09:41:51 06/18/19 23 06/17/2022 CBC W/DIF F RDW 14.5 % 11.0-[address] [facility] (Lab) [address], [place], [address], 2022 09:41:51 06/18/19 23 06/17/2022 CBC W/DIF F plt 289 10'3/ uL 150-[address] [facility] (Lab) [address], [place], [address], 2022 09:41:51 06/18/19 23 06/17/2022 CBC W/DIF F MPV 11.9 fL 9.8-[address] [facility] (Lab) [address], [place], [address], 2022 09:41:51 06/18/19 23 06/17/2022 CBC W/DIF F NRBC's 0.0 % [address] [facility] (Lab) [address], [place], [address], 2022 09:41:51 06/18/19 23 06/17/2022 CBC W/DIF F absolute NRBCs 0.0 10'3/ uL [address] [facility] (Lab) [address], [place], [address], 2022 09:41:51 06/18/19 23 06/17/2022 CBC W/DIF F neutrophils 55.7 % 37.0-[address] [facility] (Lab) [address], [place], [address], 2022 09:41:51 06/18/19 23 06/17/2022 CBC W/DIF F lymphocytes 35.5 % 16.0-[address] [facility] (Lab) [address], [place], [address], 2022 09:41:51 06/18/19 23 06/17/2022 CBC W/DIF F monocytes 5.4 % 4.0-[address] [facility] (Lab) [address], [place], [address], 2022 09:41:51 06/18/19 23 06/17/2022 CBC W/DIF F eosinophils 2.8 % 0.0-9. [address] [facility] (Lab) [address], [place], [address], 2022 09:41:51 06/18/19 23 06/17/2022 CBC W/DIF F basophils 0.5 % 0.0-2. [address] [facility] (Lab) [address], [place], [address], 2022 09:41:51 06/18/19 23 06/17/2022 CBC W/DIF F immature granulocytes 0.1 % no define d refere nce range Not Available [facility] (Lab) [address], [place], [address], 2022 09:41:51 06/18/19 23 06/17/2022 CBC W/DIF F absolute neutrophils 4.8 10'3/ uL 1.1-6. [address] [facility] (Lab) [address], [place], [address], 2022 09:41:51 06/18/19 23 06/17/2022 CBC W/DIF F absolute lymphocytes 3.0 10'3/ uL 0.7-3. [address] [facility] (Lab) [address], [place], [address], 2022 09:41:51 06/18/19 23 06/17/2022 CBC W/DIF F absolute monocytes 0.5 10'3/ uL 0.3-1. [address] [facility] (Lab) [address] [place], [address], 2022 09:41:51 06/18/19 23 06/17/2022 CBC W/DIF F absolute eosinophils 0.2 10'3/ uL 0.0-0. [address] [facility] (Lab) [address], [place], [address], 2022 09:41:51 06/18/19 23 06/17/2022 CBC W/DIF F absolute basophils 0.0 10'3/ uL 0.0-0. [address] [facility] (Lab) [address], [place], [address], 2022 09:41:51 06/18/19 23 06/17/2022 CBC W/DIF F absolute immature granulocytes 0.0 10'3/ uL 0.00-0 .10 023 5:51 AM: P indic ates parti al resul ts on a panel have been relea sed. Addit ional resul ts will follo w. 023 5:51 AM: This resul t has been final verif ied. No addit ional or clark ed resul ts are expec ernst. Not Available [facility] (Lab) [address], [place], [address], 2022 09:41:51 06/18/19 23 06/17/2022 TSH, REFLE X FREE T4 TSH 1.81 uIU/m L 0.30-[address] [facility] (Lab) [address], [place], [address], 2022 09:41:52 06/18/19 23 06/17/2022 VITAM IN D, 25-OH (TOTA L D2/D3 ) vitamin D, 25-hydroxy, total 21.6 NG/mL 30.0-1 00.0 low [place]ive of Defic iency : <20 ng/mL [place] stive of Insuf ficie ncy: 20-29 ng/mL Sug[place] stive of Suffi cienc y: 30-10 0 ng/mL Sugge stive of Toxic ity: >150 ng/mL Not Available [facility] (Lab) [address], [place], [address], 2022 09:41:52 06/18/19 23 06/17/2022 CALCI UM, IONIZ ED SERUM calcium, ionized 4.9 mg/dL 4.7-5. 5 Perfo rming Organ izati on Infor susanawallace n: Site ID: CB Name: [facility] Foote Addre ss: [address] [place] [address] Dire tor: Palomo deng V Donnie s Not Available [facility] (Lab) [address], [place], [address], 2022 09:41:53 04/08/19 23 04/08/2022 MAMMO , scree nicky, bilat eral No observ ation record ed. [address], [address], 04/09/2022 15:45:51 04/08/19 23 04/08/2022 MAMMO , scree nicky, bilat eral No observ ation record ed. [email or web address] [address], [address], 04/10/2022 16:14:34 04/09/19 23 04/08/2022 DEXA No observ ation record ed. [address], [address], 04/09/2022 15:47:42 04/17/19 23 04/16/2022 MAMMO , diagn ostic , unila teral No observ ation record ed. [email or web address], [address], 04/16/2022 13:59:48 Result Notes None recorded. Problems Name Problem SNOMED Code Status Onset Date Resolution Date Notes Provider Name and Address Organization Details Recorded Time Essential hypertension 26749494 Active 2021 Dasia Cruz MD [address], [place], [address], [place] [facility] 2 15:16:26 Problem Notes None recorded. Procedures Surgical History Date Name Laterality Status Provider Name and Address Organization Details Recorded Time 1 Date of Last Mammogram completed [facility] 11/27/2021 15:10:32 9 biopsy of breast completed [facility] 11/27/2021 15:22:53 9 Date of Last Pap Smear completed [facility] 11/27/2021 15:11:13 7 Date of Last Colonoscopy completed [facility] 11/27/2021 15:10:53 7 hernia repair completed [facility] 11/27/2021 15:22:06 Imaging Results None recorded. Procedure Notes None recorded. Medical Equipment None Reported. Allergies No known drug allergies Medications Name Sig Start Date Stop Date Status Note LastModified by Organization Details LastModified Time alendrona te 70 mg tablet TAKE 1 TABLET BY MOUTH EVERY WEEK active Not Available Not Available No t Available omeprazol e 10 mg capsule,d elayed release take 2 capsule by oral route every day before a meal 11/27 completed [facility] ed Elsewher e: Yes Loca tion: [facility] odify By: deshaun Encounte r DateTime : 05/15/19 16 01:45:00 PM Not Available Not Available Not Available Tylenol 325 mg tablet take 1 tablet by oral route every 4 hours as needed 11/27 completed Prescrib ed Elsewher e: Yes Loca tion: [facility] odify By: deshaun Encounte r DateTime : 02/04/20 17 04:45:00 PM Not Available Not Available Not Available metoprolo l succinate active Not Available Not Available No t Available zolpidem active Not Available Not Avai lable Not Available Vitals Date Recorded Body height Body mass index (BMI) Body weight Systolic And Diastolic Provider Name and Address Organization Details Last Updated DateTime 06/17/2022 160.02 cm 25.3 kg/m2 45195.71 g 120/80 mm[Hg] [facility] 06/17/2022 14:17:25 Date Recorded Body height Body mass index (BMI) Body weight Systolic And Diastolic Provider Name and Address Organization Details Last Updated DateTime 11/27/2021 160.02 cm 23.7 kg/m2 39856.38 g 133/77 mm[Hg] [facility] 11/27/2021 15:18:40 Social History Question Answer Notes LastModified by Animoto Details LastModified Time Tobacco Smoking Status Never Smoker [facility] 11/27/2021 15:05:35 Has Tobacco Cessation Counseling Been Provided? No Information not available 11/27/2021 Sex: Unknown Functional Status Question Answer Note LastModified by Animoto Details LastModified Time Do you use any illicit or recreational drugs? No Information not available 11/27/2021 Do you or have you ever used any other forms of tobacco or nicotine? No Information not available 11/27/2021 What is your level of alcohol consumption? None Information not available 11/27/2021 Mental Status None recorded. Family History Relationship Description Onset Age of this Age Resolved Age Notes LastModified by Organization Details LastModified Time Paternal Aunt Carcinoma in situ of breast [email or web address] Not available 2021 15:05:58 Notes:Brother: Bleeding diso rder, Thyroid disease Maternal aunt: Hypertension Maternal uncle: Seizure disorder, Bleeding disorder, Heart disease Mother: Hypertension Sister: Anemia Medical History Condition Response Allergies (Food, seasonal, environmental ) N Other N Blood Transfusion N Breast Cancer N Drug/Latex Allergies/Reactions N Lung Disease N Dermatologic Disorders N Defects or Inherited Disease N Breast Problem N Gestational Diabetes N Hematologic disorders N Anesthesia Complications N History of STI N Deep Vein Thrombosis N Polycystic ovary syndrome N Anxiety Disorder N Autoimmune disease N Arthritis N Polyps N Infertility N History of abnormal pap N Acid Reflux (GERD) N Cancer N Varicosities N Stroke N Neurologic/Epilepsy N Endometriosis N High Cholesterol N Headaches N Fibromyalgia N Kidney Disease N Heart Problems N Thyroid Problems N Kidney or Bladder Problems N GI Problems N Eating Disorder N Anemia N Art (IVF or FET) N Psychiatric Illness N Ovarian Cancer N Diabetes N Pulmonary (TB, Asthma) N Hepatitis/Liver Disease N No Past Medical History N Eczema N Urinary Tract Infection N Abuse/Domestic Violence N Asthma N Trauma/Violence N Depression/ depression N Heart Disease N Pre-Eclampsia N Hypertension Y Osteoporosis N Thrombophilias N Gynecological History Statement/Question Response Age of first menstrual cycle 14 Date of Last Pap Smear 02/16/2018 Current Control Method None Date of Last Mammogram 02/17/2020 Date of Last Colonoscopy 02/17/2016 Most Recent Bone Density Obstetrics History GPAL:G 4 P 4 0 0 4 Type Value Full Term 4 Living 4 Total 4 Past Encounters Encounter ID Performer Location Encounter Start Date Encounter Closed Date Diagnosis/Indication Diagnosis SNOMED-CT Code Diagnosis ICD10 Code Diagnosis Note [id number] Dasia Cruz MD [place] [address] [address] 11/27/2021 14:57:42 11/29/2021 15:46:50 Gynecologic examination 19328710 Z01.419 Z11.51 [id number] Dasia Cruz MD [place] [address],[facility] [place] [address] 06/17/2022 13:52:21 06/17/2022 14:48:06 Postmenopausal osteoporosis 063066440 M81.0 Health Concerns Section Related Observation LastModified by Organization Detai ls LastModified Time None Recorded Concern Status LastModified by Organization Details LastModified Time None Recorded Advance Directives Directive None Recorded Payers Insurance Date Sequence Insurance Name Policy Number Policy Pink Covered Member ID Pink Member ID Guarantor Name 06/16/[address] [facility] - DOS ON OR AFTER 20 (MEDICAID REPLACEMENT - HMO) Flaquita Hough [id number] Flaquita Hough Notes Date Note Type Note Provider Name and Address Organization Details Recorded Time 11/27/2021 text/html Patient is a 61y o who presents for an annual exam. Menopause around d54, no bleeding. no problems. last pap-2018 all normal mammo-2020 colonoscopy-2017, 10 years dexa-several years menopause-y sexually active-y seatbelts-y exercise-y depression-denies domestic violence-denies tobacco-no concerns- Dasia Cruz MD [address], [place], [address], [facility] 11/29/2021 09:35:30 06/17/2022 text/html Patient is a 61y o who presents for discussion of abnormal dexa results. Dexa showed osteoporosis of spine and right hip, osteopenia of everything else. She does complain of loss of height and back pain. Only occasionally takes calcium and vitamin D. Does get exercise except not lately as just had right knee replaced, left one in a few months. last WWE Nov 2021 Dasia Cruz MD [address], [place], [address], [facility] 06/17/2022 14:38:00 OBGyn Episode Ob Episode Information Episode Created Date Number of Fetuses Patient Bloodtype Patient rh Status Prepregnancy Weight lbs Domestic Partner Domestic Partner Phone Father Name Brush Loader And Handle Attacher Status 11/28/19 22 1 CLOSED Fetus Data First Name Last Name Admitted to NICU Weight (g) Sex Living Outcome Pediatric Complications Fetus ID Race Codes Race Delivery Type 3770.25 [id number] Full Term [id number] Vaginal Delivery Dipak Calculation Initial Dipak Date Initial Exam Date Initial Exam Provider Initial Ultrasound Date Last Menstrual Period Date Ultra Sound Weeks Gestation 0 Eighteen To Twenty Week Dipak Update Ultra Sound Date Fundal Height At Umbil Quickening Date Ultra Sound Latest Weeks Gestation Final Dipak Confirmed By Final Dipak Confirmed Date Final Dipak Date Ultra Sound Latest Days Gestation 0 0 Menstrual History Last Menstrual Date Menses Monthly On Bcp Conception Prior Menses Frequency Hcg Plus Date Menarche Onset Age Delivery Information Delivery Date Delivery Type Labor Anesthesia Weeks Gestation Incision Type Labor Labor Length Hrs Delivered By Post Complications Tubal Sterilization Discharge Date Comments 7 40 Discharge Information Feeding Method Contraceptive Method Maternal HG B and HCT Levels Ob Episode Information Episode Created Date Number of Fetuses Patient Bloodtype Patient rh Status Prepregnancy Weight lbs Domestic Partner Domestic Partner Phone Father Name Brush Loader And Handle Attacher Status 11/28/19 22 1 CLOSED Fetus Data First Name Last Name Admitted to NICU Weight (g) Sex Living Outcome Pediatric Complications Fetus ID Race Codes Race Delivery Type 1954.88 [id number] Prematur e [id number] Vaginal Delivery Dipak Calculation Initial Dipak Date Initial Exam Date Initial Exam Provider Initial Ultrasound Date Last Menstrual Period Date Ultra Sound Weeks Gestation 0 Eighteen To Twenty Week Dipak Update Ultra Sound Date Fundal Height At Umbil Quickening Date Ultra Sound Latest Weeks Gestation Final Dipak Confirmed By Final Dipak Confirmed Date Final Dipak Date Ultra Sound Latest Days Gestation 0 0 Menstrual History Last Menstrual Date Menses Monthly On Bcp Conception Prior Menses Frequency Hcg Plus Date Menarche Onset Age Delivery Information Delivery Date Delivery Type Labor Anesthesia Weeks Gestation Incision Type Labor Labor Length Hrs Delivered By Post Complications Tubal Sterilization Discharge Date Comments 7 35 Discharge Information Feeding Method Contraceptive Method Maternal HG B and HCT Levels Ob Episode Information Episode Created Date Number of Fetuses Patient Bloodtype Patient rh Status Prepregnancy Weight lbs Domestic Partner Domestic Partner Phone Father Name Brush Loader And Handle Attacher Status 11/28/19 22 1 CLOSED Fetus Data First Name Last Name Admitted to NICU Weight (g) Sex Living Outcome Pediatric Complications Fetus ID Race Codes Race Delivery Type 3316.66 [id number] Full Term [id number] Vaginal Delivery Dipak Calculation Initial Dipak Date Initial Exam Date Initial Exam Provider Initial Ultrasound Date Last Menstrual Period Date Ultra Sound Weeks Gestation 0 Eighteen To Twenty Week Dipak Update Ultra Sound Date Fundal Height At Umbil Quickening Date Ultra Sound Latest Weeks Gestation Final Dipak Confirmed By Final Dipak Confirmed Date Final Dipak Date Ultra Sound Latest Days Gestation 0 0 Menstrual History Last Menstrual Date Menses Monthly On Bcp Conception Prior Menses Frequency Hcg Plus Date Menarche Onset Age Delivery Information Delivery Date Delivery Type Labor Anesthesia Weeks Gestation Incision Type Labor Labor Length Hrs Delivered By Post Complications Tubal Sterilization Discharge Date Comments 9 37 Discharge Information Feeding Method Contraceptive Method Maternal HG B and HCT Levels Ob Episode Information Episode Created Date Number of Fetuses Patient Bloodtype Patient rh Status Prepregnancy Weight lbs Domestic Partner Domestic Partner Phone Father Name Brush Loader And Handle Attacher Status 11/28/19 22 1 CLOSED Fetus Data First Name Last Name Admitted to NICU Weight (g) Sex Living Outcome Pediatric Complications Fetus ID Race Codes Race Delivery Type 3628.73 6 Full Term [id number] Vaginal Delivery Dipak Calculation Initial Dipak Date Initial Exam Date Initial Exam Provider Initial Ultrasound Date Last Menstrual Period Date Ultra Sound Weeks Gestation 0 Eighteen To Twenty Week Dipak Update Ultra Sound Date Fundal Height At Umbil Quickening Date Ultra Sound Latest Weeks Gestation Final Dipak Confirmed By Final Dipak Confirmed Date Final Dipak Date Ultra Sound Latest Days Gestation 0 0 Menstrual History Last Menstrual Date Menses Monthly On Bcp Conception Prior Menses Frequency Hcg Plus Date Menarche Onset Age Delivery Information Delivery Date Delivery Type Labor Anesthesia Weeks Gestation Incision Type Labor Labor Length Hrs Delivered By Post Complications Tubal Sterilization Discharge Date Comments 4 40 Discharge Information Feeding Method Contraceptive Method Maternal HG B and HCT Levels
--- OUTSIDE RECORDS SUMMARY | 2024-09-07 22:26 | XMS_ITS | Clinical Summary ---
Author Organization [facility] Address [facility] [place] [address] Care Team Providers Care Oracle Bpm Developer Name Role Phone Isaias Chung MD Primary Care Provider [phone] Allergies No known active allergies Medications omeprazole (PriLOSEC) 40 mg capsuleIndicatio ns:Dyspepsia Take 1 capsule (40 mg total) by mouth daily 90 capsule 3 4 10/21/19 25 Active alendronate (FOSAMAX) 70 mg tablet TAKE 1 TABLET(70 MG) BY MOUTH 1 TIME A WEEK 12 tablet 1 4 Active Additional Information Patient not taking.Reported on 05/17/2024 metoprolol tartrate (LOPRESSOR) 25 mg immediate release tabletIndication s:Essential hypertension Take 0.5 tablets (12.5 mg total) by mouth daily 45 tablet 3 5 05/18/19 26 Active hydroCHLOROthiaz abdirahman (HYDRODIURIL) 25 mg tabletIndication s:Essential hypertension Take 1 tablet (25 mg total) by mouth daily 30 tablet 2 5 Active ferrous sulfate 325 mg (65 mg of elemental iron) tabletIndication s:Iron Deficiency Anemia Take 1 tablet (325 mg total) by mouth daily with breakfast 30 tablet 2 5 Active zolpidem (AMBIEN) 10 mg tablet TAKE 1 TABLET(10 MG) BY MOUTH EVERY NIGHT NEEDED FOR SLEEP 90 tablet 1 5 Active Active Problems Problem Noted Date Diagnosed Date Compression fracture of L2 lumbar vertebra 11/23 Chronic pain of both knees 10/21/2023 Dyspepsia 06/22/2023 Overview (06/22/2023): Recommend to restart Omeprazole daily. Exertional dyspnea 06/22/2023 Encounter for screening mamm ogram for malignant neoplasm of breast 06/22/2023 Primary osteoarthritis of right knee 06/22/2023 Overview (06/22/2023): s/p TKA. recurrent swelling and pain. Ortho to follow. Iron deficiency anemia due to chronic blood loss 05/23/2022 Generalized anxiety disorder 10/16/2021 Assessment & Plan (11/06/2021 2:25 PM CDT): Chronic uncontrolled. Consider half a tablet of citalopram. If no headache continue 10 mg of citalopram. Recommended oqnd-[id number] [place] warts. Also recommended black cohosh and soy knight sprouts. Recommended to connect with routine counseling. Assessment & Plan (10/16/2021 7:14 AM CDT): Overall Condition Chronic Condition: Uncontrolled and with some specific phobia, especially driving or in the car. Treatment: New Medication: Citalopram 10 mg daily. Will consider increasing to 20 mg in a month if his effective and may be necessary to increase the dosage., Referral: Clinical psychologist for counseling., Recommended Therapeutic Lifestyle Modification and Medication Changes: Discontinue Lexapro. Continue to explore other non medication approach for stress reduction. Follow up in 1 month Gastroesophageal reflux disease without esophagi tis 10/16/2021 Assessment & Plan (10/16/2021 7:15 AM CDT): Overall Condition Stable and Well-controlled. Treatment: Continue Present Management Follow up in 6 months Lumbar back pain 05/08/2021 Assessment & Plan (10/16/2021 7:17 AM CDT): Overall Condition Chronic Condition: Uncontrolled and Generalized body pain, more concentrated in upper back/shoulder and midback. Treatment: Referral: Physical THerapy Follow up in 6 months Assessment & Plan (05/08/2021 4:37 PM CDT): Overall Condition Chronic Condition: Uncontrolled and Generalized body pain, more concentrated in upper back/shoulder and midback. Treatment: Referral: Physical THerapy Follow up in 6 months Primary insomnia 05/08/2021 Assessment & Plan (11/06/2021 2:26 PM CDT): Chronic uncontrolled Recommended daily usage of Ambien. Ninety tablets for next 3 months was prescribed. Assessment & Plan (10/16/2021 7:15 AM CDT): Chronic condition Uncontrolled Continue Ambien along with melatonin. Recommended stress reduction to enhance sleep. Sleep and out was provided. Assessment & Plan (05/08/2021 4:36 PM CDT): Overall Condition Chronic Condition: Uncontrolled. Treatment: New Medication: Restart Ambein and Recommended Therapeutic Lifestyle Modification Follow up in 6 months Mild episode of recurrent major depressive disor lavell 12/10/2020 Assessment & Plan (12/10/2020 11:06 AM CDT): Overall Condition Chronic Condition: Uncontrolled and New Diagnosis. Treatment: New Medication: Start Lexapro 10mg and Recommended Therapeutic Lifestyle Modification Follow up in 3 months Dyslipidemia 12/10/2020 Assessment & Plan (10/16/2021 7:16 AM CDT): Overall Condition Chronic Condition: Uncontrolled. Treatment: New Medication: patient is against starting Atorvastatin at this point, want to apply aggressive lifestyle changes. , Lab: Fasting Lipid Profile. and Recommended Therapeutic Lifestyle Modification Follow up in 3 months Assessment & Plan (12/10/2020 11:07 AM CDT): Overall Condition Chronic Condition: Uncontrolled. Treatment: New Medication: patient is against starting Atorvastatin at this point, want to apply aggressive liverstyle changes. , Lab: Fasting Lipid Profile. and Recommended Therapeutic Lifestyle Modification Follow up in 3 months Essential hypertension 09/06/2020 Assessment & Plan (10/16/2021 7:18 AM CDT): Overall Condition Chronic Condition: Uncontrolled and Improving. Treatment: Recommended Therapeutic Lifestyle Modification Follow up in 3 months Assessment & Plan (12/10/2020 11:07 AM CDT): Overall Condition Chronic Condition: Uncontrolled and Improving. Treatment: Recommended Therapeutic Lifestyle Modification and Medication Changes: Reduce Metorpolol to 12.5mg BID. Follow up in 3 months Assessment & Plan (09/06/2020 4:55 PM CDT): Chronic. Well controlled. Patient had been taking 50 mg once a day however metoprolol tartrate to be taken twice a day. Will resume 25 mg metoprolol tartrate twice a day. Recommended Daily AM BP readings for next two weeks. Please turn those numbers in to establish stable and controlled BP. Psychophysiological insomnia 09/06/2020 Assessment & Plan (09/06/2020 4:55 PM CDT): Overall Condition Chronic Condition: Uncontrolled. Treatment: New Medication: Start Ambien Follow up in 1 month Primary osteoarthritis of left knee 09/06/2020 Assessment & Plan (11/06/2021 2:27 PM CDT): Chronic not controlled: steroid injection not effective. Recommended physical therapy. Follow-up MRI and Ortho recommendation. Assessment & Plan (10/16/2021 7:18 AM CDT): Overall Condition Chronic Condition: Uncontrolled. Treatment: Referral: Follows ortho with routine steroid injections may consider knee replacement in the future. Follow up in 3 months Assessment & Plan (12/10/2020 11:08 AM CDT): Overall Condition Chronic Condition: Uncontrolled. Treatment: Referral: Patient to call [facility] for potential steroid injection Follow up in 3 months Assessment & Plan (09/06/2020 4:56 PM CDT): Overall Condition Chronic Condition: Uncontrolled. Treatment: Referral: Physical therapy and Ortho. 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 Encounters Date Type Department Care Team Description 06/21/2024 Orders Only [facility] Family Medicine at [address] [place] [address] Isaias Chung MD Menopause (Primary Dx) 06/09/2024 10:03 AM CDT - 06/09/2024 11:59 PM CDT Hospital Encounter [facility] [address] [facility] [address] [place] [address] Discharge Disposition: Discharge to home or self care 06/09/2024 10:02 AM CDT - 06/09/2024 11:59 PM CDT Hospital Encounter [facility] [address] [facility] [address] [place] [address] Discharge Disposition: Discharge to home or self care 06/09/2024 10:02 AM CDT - 06/09/2024 11:59 PM CDT Hospital Encounter [facility] [address] [facility] [address] [place] [address] Discharge Disposition: Discharge to home or self care 06/09/2024 9:45 AM CDT - 06/09/2024 11:59 PM CDT Hospital Encounter [facility] [address] [facility] [address] [place] [address] Dyspnea on exertion; Chest pressure; Pure hypercholesterolemia ; Essential hypertension, benign Discharge Disposition: Discharge to home or self care from Last 3 Months Immunizations Immunization Administration Dates Next Due Influenza, Quadrivalent, Spl it, Preservative Free, Intramuscular 12/12/2020,01/19/2019 Influenza, Trivalent, Preser vative Free, Intramuscular 10/21/2023 Influenza, Unspecified 10/23/2022(Deferr ed: Patient decision),10/17/2021(Deferred: Patient decision) Meningococcal MCV4P (Menactra) 01/28/2021 Pfizer SARS-CoV-2 Monovalent Vaccination (12+ Yrs) PURPLE 06/04/2020,05/14/2020 Tdap 05/28/2021 Surgical History Surgery Date Site/Laterality Comments JOINT REPLACEMENT 04/22/2022 Right total knee Medical History Medical History Date Comments Hypertension Family History Medical History Relation Name Comments No Known Problems Daughter 1 No Known Problems Daughter 2 No Known Problems Father Hypertension Mother Kidney disease Mother No Known Problems Son 1 No Known Problems Son 2 Relation Name Status Comments Daughter 1 Alive Daughter 2 Alive Father Mother Son 1 Alive Son 2 Alive Social History Tobacco Use Types Packs/Day Years Used Date Smoking Tobacco: Never Smokeless Tobacco: Never Tobacco Cessation:Counseling Given: Not Answered AUDIT-C Answer Date Recorded Q1: How often do you have a drink containing alcohol? Never 05/17/2024 Q2: How many drinks containi ng alcohol do you have on a typical day when you are drinking? Patient does not drink Q3: How often do you have si x or more drinks on one occasion? Never 05/17/2024 PHQ-2 Answer Date Recorded PHQ-2 Total Score (If total score is 3 or more points, staff should administer the PHQ-9) 0 10/21/2023 PHQ-9 Answer Date Recorded PHQ-9 Total Score 0 10/21/2023 Comments Unknown Sex and Gender Information Value Date Recorded Sex Assigned at Not on file Legal Sex Female 11:51 AM CDT Gender Identity Female 05/22/2022 11:22 PM CDT Sexual Orientation Straight 05/22/2022 11 :22 PM CDT Obstetrics History Last Filed Vital Signs Vital Sign Reading Time Taken Comments Blood Pressure 146/80 06/09/2024 11:10 AM CDT Pulse 60 05/17/2024 3:35 PM CDT Temperature 36.3 C (97.4 F) 05/17/2024 3:35 PM CDT Respiratory Rate 18 05/17/2024 3:35 PM CDT Oxygen Saturation 99% 05/17/2024 3:35 PM CDT Inhaled Oxygen Concentration - - Weight 68.4 kg (150 lb 14.4 oz) 05/17/2024 3:35 PM CDT Height 160 cm (5' 3) 05/17/2024 3:35 PM CDT Body Mass Index 26.73 05/17/2024 3:35 PM CDT Plan of Treatment Health Maintenance Due Date Last Done Comments Cervical Cancer Screening 1960 Hepatitis B Screening 06/20/1979 Zoster Vaccine (1 of 2) 06/20/2011 Covid-19 Vaccine ( season) 2023 01/22/2021, 06/04/2020, 05/14/2020 Breast Cancer Screening-Mammogram 09/09/2024 09/10/2023, 04/16/2022, 04/08/2022, Additional history exists Influenza Vaccine (#1) 2024 , 12/12/2020, 01/19/2019 Depression Screening 10/20/2024 10/21/2023, 10/21/2023, 10/13/2022, Additional history exists Regular Well Visit/Exam 18-64 10/20/2024 10/21/2023, 10/13/2022, 10/14/2021, Additional history exists Colon Cancer Screening-DNA Stool 10/22/2025 10/22/2022 DTaP/Tdap/Td Vaccine (2 - Td or Tdap) 05/29/2031 05/28/2021 Hepatitis C Screening Completed 09/27/2022 Pneumococcal vaccine <65 Aged Out No longer eligible based on patient's age to complete this topic Procedures Procedure Name Priority Date/Time Associated Diagnosis Comments NM MPI SPECT (REST AND/OR STRESS) MULTIPLE STUDIES Schedule Routine, Read Routine (OP Routine) 06/09/2024 12:10 PM CDT Dyspnea on exertion Chest pressure Pure hypercholesterolem ia Essential hypertension, benign SCREENING MAMMOGRAM Schedule Routine, Read Routine (OP Routine) 09/10/2023 9:10 AM CDT STOOL DNA COLOGUARD Routine 10/22/2022 10:40 AM CDT Screening for colon cancer HEPATITIS C ANTIBODY Routine 09/27/2022 12:19 PM CDT Need for hepatitis C screening test from Last 3 Months or Most Recently Relevant to Health Maintenance Results * NM MPI SPECT (Rest and/or Stress) Multiple Studies (06/09/2024 12:10 PM CDT) Anatomical Region Laterality Modality Body N/A Nuclear Medicine Narrative 06/09/2024 2:25 PM CDT Patient Id: Flaquita Hough is a 63 y.o. female. MR#: [id number] Study date: 06/09/2024 Indications: Patient is adult female who had history of shortness of breath brought in today for a Lexiscan Myoview stress test. Stress portion and EKG data: Baseline EKG showed sinus rhythm with a heart rate of 54 beats per minute. Resting blood pressure 146/80 mm of mercury. Baseline conduction normal without any arrhythmias. No ST changes noted. Patient received 0.4 mg Lexiscan followed by fluid bolus and Myoview injection During infusion and recovery rhythm is sinus rhythm and heart rate increased 100 beats per minute. Peak blood pressure 140/63 mm of mercury which is normal response. During stress test conduction normal. No arrhythmia noted. No chest pain noted. Nonspecific T-wave changes noted. No ST-T changes suggestive of ischemia noted. Test terminated secondary to end of protocol. Electrocardiographic impressions: Tolerate Lexiscan well No chest pain noted during the test EKG negative for ischemia MPI report: Patient received 11 mCi of Myoview at rest. Patient received 33 mCi of Myoview at stress Quality of the study: Good. No motion correction performed. No prone images were obtained. Findings: Left ventricular cavity normal at rest and stress images. SPECT rest and stress images revealed mild decrease in tracer uptake involving the small to medium-sized area of anterior wall without any reversibility. Remaining segments perfuse normally. Gated images demonstrates Impressions: No evidence of reversible ischemia noted. Anterior attenuation artifact probably secondary to breast attenuation. Normal left ventricle wall motion Calculated ejection fraction is 68%. I personally supervised and reviewed the stress test. Copy to Isaias Chung MD 06/09/2024 Dane BUTTSG NM PROCEDURES Final Res ult * Screening Mammogram (09/10/2023 9:10 AM CDT) Anatomical Region Laterality Modality Breast N/A Mammography Historical Provider MD [facility] MAMMO PROCEDURES Karina l Result * Stool DNA - Cologuard (10/22/2022 10:40 AM CDT) Stool DNA - Cologuard Negative Negative [email or web address] (CLIA #:[id number]) Comment: NEGATIVE TEST RESULT. A negative Cologuard result indicates a low likelihood that a colorectal cancer (CRC) or advanced adenoma (adenomatous polyps with more advanced pre-malignant features) is present. The chance that a person with a negative Cologuard test has a colorectal cancer is less than 1 in 1500 (negative predictive value >99.9%) or has an advanced adenoma is less than 5.3% (negative predictive value 94.7%). These data are based on a prospective cross-sectional study of 10,000 individuals at average risk for colorectal cancer who were screened with both Cologuard and colonoscopy. (Lm Corral et al, N Engl J Med 2014;370(14):7111-1871) The normal value (reference range) for this assay is negative. COLOGUARD RE-SCREENING RECOMMENDATION: Periodic colorectal cancer screening is an important part of preventive healthcare for asymptomatic individuals at average risk for colorectal cancer. Following a negative Cologuard result, the [place] [employer] and U.S. Multi-Society Task Force screening guidelines recommend a Cologuard re-screening interval of 3 years. References: [place] [employer] Guideline for Colorectal Cancer Screening: https://www.cancer.org/cancer/rrrrc-yuvzwn-rvisen/twcaknunq-ixqubmvwy-ttezego/ac s-rec ommendations.html.; Donte DK, Tena BULLOCK, Rigo KamaraK, Colorectal Cancer Screening: Recommendations for Physicians and Patients from the U.S. Multi-Society Task Force on Colorectal Cancer Screening , Am J Gastroenterology 2017; 112:9838-0320. TEST DESCRIPTION: Composite algorithmic analysis of stool DNA-biomarkers with hemoglobin immunoassay. Quantitative values of individual biomarkers are not reportable and are not associated with individual biomarker result reference ranges. Cologuard is intended for colorectal cancer screening of adults of either sex, 45 years or older, who are at average-risk for colorectal cancer (CRC). Cologuard has been approved for use by the U.S. FDA. The performance of Cologuard was established in a cross sectional study of average-risk adults aged 50-84. Cologuard performance in patients ages 45 to 49 years was estimated by sub-group analysis of near-age groups. Colonoscopies performed for a positive result may find as the most clinically significant lesion: colorectal cancer [4.0%], advanced adenoma (including sessile serrated polyps greater than or equal to 1cm diameter) [20%] or non- advanced adenoma [31%]; or no colorectal neoplasia [45%]. These estimates are derived from a prospective cross-sectional screening study of 10,000 individuals at average risk for colorectal cancer who were screened with both Cologuard and colonoscopy. (Lm Wagoner al, N Engl J Med 2014;370(14):2939-2994.) Cologuard may produce a false negative or false positive result (no colorectal cancer or precancerous polyp present at colonoscopy follow up). A negative Cologuard test result does not guarantee the absence of CRC or advanced adenoma (pre-cancer). The current Cologuard screening interval is every 3 years. ([place] [employer] and U.S. Multi-Society Task Force). Cologuard performance data in a 10,000 patient pivotal study using colonoscopy as the reference method can be accessed at the following location: www.[employer]/results. Additional description of the Cologuard test process, warnings and precautions can be found at www.[employer].com. Stool 10/22/2022 10:4 0 AM CDT 10/23/2022 4:01 PM CDT Isaias Chung MD LAB BODY FLUIDS AND STOOLS ORDER ERICK Final Result [facility] (CLIA #:[id number]) [address] [place] [address] * Hepatitis C antibody (09/27/2022 12:19 PM CDT) Hep C Ab NON-REACTI VE NON-REACT [facility] Comment: HCV antibody was non-reactive. There is no laboratory evidence of HCV infection. In most cases, no further action is required. However, if recent HCV exposure is suspected, a test for HCV RNA (test code 58597) is suggested. For additional information please refer to http://education.Night Out/faq/ZMB08h1 (This link is being provided for informational/ educational purposes only.) Blood 09/27/2022 12:1 9 PM CDT 09/27/2022 12:19 PM CDT Isaias Chung MD LAB MICROBIOLOGY - GENERAL ORDER ERICK Final Result [facility] [address] [place] [address] from Last 3 Months or Most Recently Relevant to Health Maintenance Insurance [facility] Care Teams Oracle Bpm Developer Relationship Specialty Start Date End Date Isaias Chung MD PCP - General Family Medicine 09/06/20
--- OUTSIDE RECORDS SUMMARY | 2024-09-07 22:26 | XMS_ITS | Clinical Summary ---
Author Organization [facility] Address [address] [place] [address] Care Team Providers Care Chemical Packager Name Role Phone Lance García MD Primary Care Provider [phone] Allergies No known active allergies Medications aspirin EC (ASPIRIN) 81 MG EC tablet Take 81 mg by mouth daily. Active ranitidine 150 MG tablet Take 150 mg by mouth 2 (two) times daily. Active metoprolol succinate (TOPROL XL) 25 MG 24 hr tablet Take 1 tablet (25 mg total) by mouth daily. 30 tablet 3 11/16/2017 Active nitroglycerin 0.[address] 1 tablet (0.4 mg total) under the tongue every 5 (five) minutes as needed for Chest Pain. 25 tablet 1 11/16/2017 Active atorvastatin 20 MG tablet Take 1 tablet (20 mg total) by mouth every evening. 30 tablet 3 11/16/2017 Active Social History Tobacco Use Types Packs/Day Years Used Date Smoking Tobacco: Never Assessed Comments Unknown Sex and Gender Information Value Date Recorded Sex Assigned at Not on file Legal Sex Female 5:31 PM CDT Gender Identity Not on file Sexual Orientation Not on file Last Filed Vital Signs Vital Sign Reading Time Taken Comments Blood Pressure 178/88 11/16/2017 12:23 PM CDT Pulse 72 11/16/2017 12:23 PM CDT Temperature 36.4 C (97.5 F) 11/16/2017 12:23 PM CDT Respiratory Rate 18 11/16/2017 2:15 PM CDT Oxygen Saturation 100% 11/16/2017 12:23 PM CDT Inhaled Oxygen Concentration - - Weight 63.7 kg (140 lb 6.9 oz) 11/16/2017 12:23 PM CDT Height 160 cm (5' 3) 11/16/2017 12:23 PM CDT Body Mass Index 24.88 11/16/2017 12:23 PM CDT Plan of Treatment Health Maintenance Due Date Last Done Comments Cervical Cancer Screening Pa p Smear (Age 30 to 64) Every 3 Years 1960 Colorectal Cancer Screening Colonoscopy (10 Years) 1961 Annual Physical 1964 Hepatitis C 06/20/1979 DTaP, Tdap and Td Vaccines ( 1 - Tdap) 1980 Cervical Cancer Screening Pa p with HPV Testing (Age 30 to 64) Every 5 Years 06/20/1991 Cervical Cancer Screening with HPV 06/20/1991 Mammogram Screening 2001 Pneumococcal Vaccine: 50+ Ye ars (1 of 1 - PCV) 06/20/2011 Zoster Vaccines (1 of 2) 06/20/2011 COVID-19 Vaccine ( - 2023-2 5 season) 2023 RSV Immunization or 60+ Years (1 - 1-dose 75+ series) 2036 Meningococcal B Vaccine Aged Out No l onger eligible based on patient's age to complete this topic Meningococcal Vaccine Aged Out No jyothi prudencio eligible based on patient's age to complete this topic RSV Immunizations Under 20 Months Aged Out No longer eligible based on patient's age to complete this topic Insurance [place] Member Subscriber Plan / Payer (Ef fective 2016-Present) Name:Flaquita Hough Relation to Subscriber:Self Name:Flaquita Hough Payer ID:[id number] (NAIC) Group ID:Not on file Type:Not on file Address: [place] [phone] [place] Advance Directives * Full Code (Latest Code Status on File) Date Activated Date Inactivated Comments 11/16/2017 3:53 PM 11/16/2017 7:04 PM Care Teams Chemical Packager Relationship Specialty Start Date End Date Lance García MD PCP - General 06/29/15
--- OUTSIDE RECORDS SUMMARY | 2024-09-07 22:26 | XMS_ITS | Continuity of Care Document ---
Author Organization [facility] Address [address] [place] [address] Phone Care Team Providers Care Scrap Wheeler Name Role Phone Lance García MD Unavailable Unavailable Allergies, Adverse Reactions, Alerts Substance Reaction Status Criticality No Known Allergies Active No Inform ation Medications Medication Instructions Dosage Effective Dates (start - stop) Status Comments No Drug Therapy Prescribed Procedures Procedure Date OFFICE/OUTPATIENT VISIT, EST PREV VISIT, EST, AGE 40-64 OFFICE/OUTPATIENT VISIT, EST OFFICE/OUTPATIENT VISIT, EST OFFICE/OUTPATIENT VISIT, EST OFFICE/OUTPATIENT VISIT, EST OFFICE/OUTPATIENT VISIT, EST PREV VISIT, EST, AGE 40-64 OFFICE/OUTPATIENT VISIT, EST OFFICE/OUTPATIENT VISIT, EST PREV VISIT, NEW, AGE 40-64 Advance Directives Directive Yes / No Effective Date File Name No Information Encounters Encounter Description Practice Location Reason(s) For Visit Diagnoses Date Provider Providers Copied on Encounter OFFICE/OUTPA TIENT VISIT, EST [facility], [address], [address], [place] tel:[phone] [facility] Medicine right thumb pain1 (chief complaint) HLP (chief complaint) breast nodule1 (chief complaint) Pain in right handLump in breastHyperlipidemi aAnemia Mar-2 0-201 7 Ricky Lucas. [address], [place], [place], [address] , [place]. tel:[phone] Referring Provider: Maco Vel[address], [place], [place], [address]. tel:[phone] PREV VISIT, EST, AGE 40-64 [facility], [address], [place], [place], [address], [place] [phone] [facility] anemia1 (chief complaint) HLP (chief complaint) osteoepeni a1 (chief complaint) Physical (chief complaint) AnemiaHyperlipidemi aPain in unspecified jointEncounter for general adult medical exam w abnormal findings 6 Ricky Lucas. [address], [place], [place], [address] , [place]. tel:[phone] Referring Provider: Maco Veláz[address], [place], [place], [address]. tel:[phone] OFFICE/OUTPA TIENT VISIT, [facility] [address], [place], [place], [address], [place] tel:[phone] [facility] knee pain1 (chief complaint) hot and cold (chief complaint) anemia1 (chief complaint) Pain in unspecified jointAnemiaChills 6 Ricky Pickett [address], [place], [place], [address] , [place]. [phone] Referring Provider: Maco Veláz[address], [place], [place], [address]. tel:[phone] OFFICE/OUTPA TIENT VISIT, EST [facility], [address], [place], [place], [address], [place] tel:[phone] [facility] osteopenia 1 (chief complaint) knee pain (chief complaint) GERd1 (chief complaint) hearing loss (chief complaint) Other specified disorder of bone densityPain in lt kneeGastritis, unspecified, without bleedingConductive hearing loss, bilateral Feb-0 6 Ricky Pickett [address], [place], [place], [address] , [place]. tel:[phone] Referring Provider: Lance García, [address], [place], [place], [address]. tel:[phone] OFFICE/OUTPA TIENT VISIT, EST [facility], [address], [place], [place], [address], [place] [phone] [facility] Hypylori (chief complaint) nevus (chief complaint) Anemia (chief complaint) Screening for osteoporosisOther specified anemiasGastritisNev us, non-neoplastic 5 Ricky Lucas. [address], [place], [place], [address] , [place]. [phone] Referring Provider: Maco Velázquez [address], [place], [place], [address]. tel:[phone] OFFICE/OUTPA TIENT VISIT, [facility] ([facility], [address], [place], [place], [address], [place] tel:[phone] [facility] anemia (chief complaint) Vitamin D (chief complaint) arthritis (chief complaint) Anemia, unspecifiedVitamin deficiencyOsteoarth ritisUnspecified vitamin d deficiencyUnspecifi ed vitamin d deficiency 5 Ricky Lucas. [address], [place], [place], [address] , [place]. [phone] Referring Provider: Maco Veláz[address], [place], [place], [address]. tel:[phone] PREV VISIT, EST, AGE 40-64 [facility] Family [facility], [address], [place], [place], [address], [place] tel:[phone] [facility] Medicine PHysical (chief complaint) Routine medical exam 5 Ricky Lucas. [address], [place], [place], [address] , [place]. [phone] Referring Provider: Maco Veláz[address], [place], [place], [address]. tel:[phone] OFFICE/OUTPA TIENT VISIT, [facility] ([facility], [address], [place], [place], [address], [place] tel:[phone] [facility] hand pain (chief complaint) Pain in joint involving handPain in joint involving lower legDietary surveillance and counseling 3 Ricky Lucas. [address], [place], [place], [address] , [place]. [phone] Referring Provider: Lance García, [address], [place], [place], [address]. tel:[phone] OFFICE/OUTPA TIENT VISIT, [facility], [address], [place], [place], [address], [place] tel:[phone] [facility] Anemia (chief complaint) HLP (chief complaint) vitamin D (chief complaint) Heaeache (chief complaint) HeadacheOther and unspecified hyperlipidemiaAnemi aUnspecified vitamin d deficiencyDietary surveillance and counseling 3 Ricky Lucas. [address], [place], [place], [address] , [place]. [phone] Referring Provider: [address], [place], [place], [address]. tel:[phone] PREV VISIT, NEW, AGE 40-64 [facility], [address], [place], [place], [address], [place] tel:[phone] [facility] Physical (chief complaint) hot flush (chief complaint) Dietary surveillance and counselingRoutine Medical ExamRoutine Medical Exam 3 Ricky Lucas. [address], [place], [place], [address] , [place]. [phone] Referring Provider: [address], [place], [place], [address]. tel:[phone] Family History Family Member Type Diagnosis Age At Onset Father Problem (finding) Alive and well Brother Problem (finding) Alive and well Mother Problem (finding) Hypertension Payers Payer name Insurance type Covered republican ID Authoriza tion(s) No Information Social History Type Description Quantity Date Captured Comments Alcohol Use Details No Caffeine Use Details Unknown Tobacco Use Status Never smoked tobacco 2016 Smoking Status Never smoker Sex Female Vital Signs Date / Time: Height Weight BMI Pulse Rate Blood Pressure Temperature Respiratory Rate Body Surface Area Head Circumference BMI percentile Pulse Ox Inhaled Ox 4:50 PM 160.02 cm 140.00 lbs 24.8 0 kg/m eter (2) 60 /min 137/84 mm[Hg] 98.1 F 18 /min Chief Complaint And Reason For Visit From encounter dated '05/05/2016 14:45'. right thumb pain1 (chief complaint). Description: Pt c/o right base of thumb pain. Pt has arthritis. Pt has not seen plastic surgeon yet . Pt c/o mild swelling base of right thumb HLP (chief complaint). Description: Pt has HLP Pt is trying low fat and low carb diet breast nodule1 (chief complaint). Description: Pt has right breast nodule. Pt was in [facility]. Pt had ultrasound done and then biopsy which was negative per pt recently. Pt denies any breast pain ornodule Plan Of Treatment Date Type Action Status Referral Ordered: MAMMOGRAM, ONE BREAST R ordered Referral Ordered: Ady Nair (related to Pain in unspecified joint) ordered Referral Ordered: Julito Vargas (related to Pain in unspecified joint) ordered Referral Referred To: Ady Nair [address] [place], [id number] Ordered: Referrals: Ady Nair. Follow-up and Treat ordered Referral Ordered: MAMMOGRAM, ONE BREAST ordered Referral Referred To: Julito Vargas [address] [place], [phone] Ordered: Referrals: Julito Vargas. Evaluate and treat ordered Referral Ordered: Otolaryngology (related to Conductive hearing loss, bilateral) ordered Referral Ordered: KNEE XRAY TWO-VIEW Bilateral ordered Referral Ordered: Referrals: Otolaryngology. Evaluate and treat ordered Referral Ordered: DXA BONE DENSITY, AXIAL ordered Referral Ordered: Dermatology (related to Unspecified vitamin d deficiency) ordered Referral Ordered: Referrals: Dermatology. Evaluate and treat ordered Referral Ordered: COLONOSCOPY AND BIOPSY ordered Referral Ordered: AP PELVIS AND BILATERAL HIPS XRAY ordered Referral Ordered: US EXAM, ABDOM, COMPLETE ordered Referral Ordered: MAMMOGRAM, SCREENING ordered Referral Ordered: Plastic Surg (related to Pain in joint involving hand) ordered Referral Ordered: HAND XRAY, TWO VIEW Bilateral ordered Referral Ordered: Referral: Plastic Surg. ordered Referral Ordered: MRI BRAIN W/O & W/DYE ordered Referral Ordered: CARDIOVASCULAR STRESS TEST ordered History Of Present Illness Encounter Date Complaint History Of Prese nt Illness breast nodule1 Pt has right sofia ast nodule. Pt was in [facility]. Pt had ultrasound done and then biopsy which was negative per pt recently. Pt denies any breast pain or nodule HLP Pt has HLP Pt is trying low fat and low carb diet right thumb pain1 Pt c/o right b ase of thumb pain. Pt has arthritis. Pt has not seen plastic surgeon yet . Pt c/o mild swelling base of right thumb osteoepenia1 Pt has not been taking claiucm and vitain d anemia1 Pt has very mild anemia. Her hemoglobin is stable from last year. NO blood loss. Pt has low iron HLP Pt has HLP. Physical Pt needs annul p hysical. Pt just had lab done. Pt has stable anemia with mild low ferritin. Pt denies any blood loss. Pt denies any vaginal bleeding. Pt has mild HLP and low D Pt is osteopnic. Pt has not been taking calcium and vitmin d daily. Pt also has knee and right wrist area pain near the base of right thumb. Pt denies any injury. Pt states that her knee hurt especially when she needs to go upstairs. Pt denies any other complaints anemia1 Pt has histor yo f anemia Pt had negative GI work up. Pt dneies any vaginal bleeding hot and cold Pt feels hot and cold sometimes Pt denies any fever or any sweat or cold chills. Pt denies any sore throat or any ear pain knee pain1 Pt has bilateral knee pain and right wrist pain for several months Pt does have arthritis on knee xray in the past Pt denies any injury. Pt states that walking up and down stairs causes knee pain Pt denies any swelling. Pt had negative rheumatologic work up in the past. Pt also notices left tib/fb pain. No injury. NO calf pain hearing loss Pt c/o bilateral hearing loss for several months. Pt denies any ear pain Pt states that heraing is getting worse lately Pt denies any expsoure to loud noise GERd1 Pt has been taki ng omerpzole for mild gastritis. Pt denies any abd pain Pt denies any GERd. Pt did have hpylor and she was treated and she was subsequently checked by GI and hpylori was gone per patient. knee pain Location: knee. Additional information: Pt c/o bilateral knee pain, worse when she goes upstairs. Pt denies any injuryk .Pt denies any swelling. Pt has been taking tylenol which was helping but not anymore. osteopenia1 Pt has mild oste openia. Pt denies any history of fracture. Anemia Pertinent negati ves include abdominal pain, brittle nails, chest pain, cold intolerance, constipation, depression, diarrhea, dyspnea, fatigue, gait disturbance, headache, nausea, vomiting and weight loss. Additional information: Pt has mild anemia. Pt hernandez snot have any GI bleeding. 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 . Pt denies any vaginal bleeding. nevus Pt has nevus rig ht side of nose for many years. Pt has appoitment with dermatology soon Hypylori Pt had EGD and c olonoscpy done recently and she had normal colonoscopy Pt has gastritis and also hpylori. Pt is on omerpazole and amoxil and flagyl now Pt denies any abd pain Pt denies any GI bleeding. anemia Associated sympt oms include joint pain. Pertinent negatives include abdominal pain, chest pain, cold intolerance, constipation, depression, diarrhea, dyspnea, fatigue, gait disturbance, headache, nausea, vomiting and weight loss. Additional information: Pt has mild anemia and low ferritin. Pt denies any GI complaitns No blood loss. No hematuria. Pt denies any vaginal bleeding. Vitamin D Pt has low vitam i D arthritis Pertinent negati ves include abdominal pain, fatigue, headache, joint swelling, rash and weight loss. Additional information: Pt has low back and some hip and knee pain. Pt has arthritis Pt denies any loss of bowel or bladder control. Pt denies any scatica PHysical Pt needs annual physical. Pt has history of healed duodenal ulcer. Pt c/o left hip and left femur and left knee pain for the past 1-2 weeks. Pt denies any injury. Pt states that walking hurts worse. Pt denies any back pain. Pt denies any sciatica. Pt notics some protrusion around abdomen. Pt denies any pain. Pt denies any GERD. No nauea, vomiting. Pt denies any other complaints Medications Administered Medication Instructions Dosage Effective Dates (start - stop) Status Comments No Drug Therapy Prescribed Instructions Date Instruction Additional Infor letty Dietary counseling Related to Di etary surveillance counseling Decrease caloric intake Related to Dietary surveillance counseling Dietary counseling Related to Di etary surveillance counseling Decrease caloric intake Related to Dietary surveillance counseling Dietary counseling Related to Di etary surveillance counseling Decrease caloric intake Related to Dietary surveillance counseling Assessments Type Assessment Date assessment Pain in right hand assessment Lump in breast assessment Hyperlipidemia assessment Anemia Mental Status Date Cognitive Assessment Orientation - [place] ed to time, place, person, situation.
--- OUTSIDE RECORDS SUMMARY | 2024-09-07 22:26 | XMS_ITS | Referral Summary ---
Author Organization [facility] Address [address] [place] [address] Care Team Providers Care Legal Support Specialist Name Role Phone Isaias Chung MD Primary Care Provider Encounters Date Type Department Care Team Description 06/21/2024 Orders Only [facility] Family Medicine at [address] [place] [phone] Isaias Chung MD Menopause (Primary Dx) 06/09/2024 10:03 AM CDT - 06/09/2024 11:59 PM CDT Hospital Encounter [facility] Office Bl [address] Nuclear Medicine [address] [place] [phone] Discharge Disposition: Discharge to home or self care 06/09/2024 10:02 AM CDT - 06/09/2024 11:59 PM CDT Hospital Encounter [facility] Office [address]ld[address] Nuclear Medicine [address] [place] [address] Discharge Disposition: Discharge to home or self care 06/09/2024 10:02 AM CDT - 06/09/2024 11:59 PM CDT Hospital Encounter [facility] Office [address]ld[address] 2 Nuclear Medicine [address] [place] [phone] Discharge Disposition: Discharge to home or self care 06/09/2024 9:45 AM CDT - 06/09/2024 11:59 PM CDT Hospital Encounter [facility] Medical Office [facility] 2 Nuclear Medicine [address] [place] [address] Dyspnea on exertion; Chest pressure; Pure hypercholesterolemia ; Essential hypertension, benign Discharge Disposition: Discharge to home or self care from Last 3 Months Allergies No known active allergies Medications omeprazole [...] headache continue 10 mg of citalopram. Recommended [id number]-[id number] [place] warts. Also recommended black cohosh [...] Referral: Patient to call Ortho Physicant at [place] for potential steroid injection Follow up in 3 months Assessment & Plan (09/06/2020 4:56 PM CDT): Overall Condition Chronic Condition: Uncontrolled. Treatment: Referral: Physical therapy and Ortho. 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] 05/17/2024 3:35 PM CDT Plan of Treatment Not on file Procedures Procedure Name Priority Date/Time Associated Diagnosis [...] Hough is a 63 y.o. female. MR#: [id number] Study date: 06/09/2024 Indications: Patient is adult [...] test. Copy to Isaias Chung MD 06/09/2024 us Dane Kurtz MD IMG NM PROCEDURES Final Res ult * Screening Mammogram (09/10/2023 9:10 AM CDT) Anatomical Region Laterality Modality Breast N/A Mammography us Historical Provider MD [facility]ANCO MAMMO PROCEDURES Karina yun Result * Stool DNA - Cologuard (10/22/2022 10:40 AM CDT) Stool DNA - Cologuard Negative Negative [employer] (CLIA #:[id number]) Comment: NEGATIVE TEST RESULT. A negative Cologuard [...] Corral et al, N Engl J Med 2014;370(14):2029-5259) The normal value (reference range) for this assay is negative. COLOGUARD RE-SCREENING RECOMMENDATION: Periodic colorectal cancer screening is an important part of preventive healthcare for asymptomatic individuals at average risk for colorectal cancer. Following a negative Cologuard result, the [place] [employer] and U.S. Multi-Society Task Force screening guidelines recommend a Cologuard re-screening interval of 3 years. References: [place] [employer] Guideline for Colorectal Cancer Screening: https://www.cancer.org/cancer/isugd-lpuxtn-nrdjxs/rmbrduezy-sbekjlgya-iiwgstj/ac s-rec ommendations.html.; Donte DK, Tena CR, Rigo KamaraK, Colorectal Cancer Screening: Recommendations for Physicians and Patients from the U.S. Multi-Society Task Force on Colorectal Cancer Screening , Am J Gastroenterology 2017; 112:1690-1440. TEST DESCRIPTION: Composite algorithmic analysis of stool [...] Corral et al, N Engl J Med 2014;370(14):8678-3008.) Cologuard may produce a false negative or false positive result (no colorectal cancer or precancerous polyp present at colonoscopy follow up). A negative Cologuard test result does not guarantee the absence of CRC or advanced adenoma (pre-cancer). The current Cologuard screening interval is every 3 years. ([place] [employer] and U.S. Multi-Society Task Force). Cologuard performance data in a 10,000 patient pivotal study using colonoscopy as the reference method can be accessed at the following location: www.wrenchguys mobile.[employer]/results. Additional description of the Cologuard test process, warnings and precautions can be found at www.Jewel TonedogPlayMobsrd.com. Stool 10/22/2022 10:4 0 AM CDT 10/23/2022 4:01 PM CDT us Isaias Chung MD LAB BODY FLUIDS AND STOOLS ORDER ERICK Final Result [employer] (CLIA #:[id number]) [address] [address] * Hepatitis C antibody (09/27/2022 12:19 PM CDT) Hep C Ab NON-REACTI VE NON-REACT LORENZO [facility] Comment: HCV antibody was non-reactive. There is no laboratory evidence of HCV infection. In most cases, no further action is required. However, if recent HCV exposure is suspected, a test for HCV RNA (test code 91508) is suggested. For additional information please refer to http://education.[employer]/faq/UNC46y3 (This link is being provided for informational/ educational purposes only.) Blood 09/27/2022 12:1 9 PM CDT 09/27/2022 12:19 PM CDT Isaias Chung MD LAB MICROBIOLOGY - GENERAL ORDER ERICK Final Result [facility] [address] [place] [address] from Last 3 Months or Most Recently Relevant to Health Maintenance Insurance [facility] Care Teams Legal Support Specialist Relationship Specialty Start Date End Date Isaias Chung MD PCP - General Family Medicine 09/06/20
--- OUTSIDE RECORDS SUMMARY | 2024-09-07 22:26 | XMS_ITS | Encounter Summary ---
Author Organization [facility] Healthcare Address [address] [place] [address] Care Team Providers Care Reed Cleaner Name Role Phone Isaias Chung MD Primary Care Provider [phone] Encounter Details Date Type Department Care Team (Late st Contact Info) Description 11/23/2023 Telephone [facility] Medical Group Family Medicine at [address] [phone] Isaias Chung MD [address] [place] [address] Social History Tobacco Use Types Packs/Day Years Used Date Smoking Tobacco: Never Smokeless Tobacco: Never AUDIT-C Answer Date Recorded Q1: How often do you have a drink containing alcohol? Never 11/24/2023 Q2: How many drinks containi ng alcohol do you have on a typical day when you are drinking? Patient does not drink Q3: How often do you have si x or more drinks on one occasion? Never 11/24/2023 PHQ-2 Answer Date Recorded PHQ-2 Total Score [...] Orientation Straight 05/22/2022 11 :22 PM CDT documented as of this encounter Functional Status * Audit-C Score Answer Date of Assessment Author 0 11/24/2023 11:01 AM QIANAT Corry Hunt MA * Question Answer Date of Assessment Author Q1: How often do you have a drink containing alcohol? Never 11/24/2023 11:01 AM Severiano Madison MA Q2: How many drinks containing alcohol do you have on a typical day when you are drinking? Patient does not drink 11/24/2023 11:01 AM Severiano Madison MA Q3: How often do you have six or more drinks on one occasion? Never 11/24/2023 11:01 AM Severiano Madison MA documented as of this encounter Plan of Treatment Not on file documented as of this encounter Visit Diagnoses Not on filedocumented in this encounter Care Teams Reed Cleaner Relationship Specialty Start Date End Date Isaias Chung MD PCP - General Family Medicine 09/06/20 documented as of this encounter
[2024-09-07 22:36] VITALS: BP 150/79; PULSE 62; RESP 16; TEMP 36.8; O2SAT 100
--- NOTE | 2024-09-08 04:51 | PC.NURSE ---
This josué rn witnessed the pt and her family exit ED with steady gait and never return around 0250. Rn called out for pt name to go back into a at this time with no response to call out. Pt left without being seen.
--- OUTSIDE RECORDS SUMMARY | 2024-09-08 05:12 | XMS_ITS | Clinical Summary ---
Author Organization [facility] Address [facility] [place] [address] Care Team Providers Care Business Planning Director Name Role Phone Isaias Chung MD Primary Care Provider [phone] Allergies No known active allergies Medications omeprazole [...] headache continue 10 mg of citalopram. Recommended kdlw-wmu-tnyrlxu [place] warts. Also recommended black cohosh [...] Referral: Patient to call Ortho Physicant at [place] for potential steroid injection Follow up in 3 months Assessment & Plan (09/06/2020 4:56 PM CDT): Overall Condition Chronic Condition: Uncontrolled. Treatment: Referral: Physical therapy and Ortho. 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 Encounters Date Type Department Care Team Description 06/21/2024 Orders Only [facility] Family Medicine at [address] [place] [address] Isaias Chung MD Menopause (Primary Dx) 06/09/2024 10:03 AM CDT - 06/09/2024 11:59 PM CDT Hospital Encounter [place] [address] Nuclear Medicine [address] [place] [address] Discharge Disposition: Discharge to home or self care 06/09/2024 10:02 AM CDT - 06/09/2024 11:59 PM CDT Hospital Encounter [place] [address] Nuclear Medicine [address] [place] [address] Discharge Disposition: Discharge to home or self care 06/09/2024 10:02 AM CDT - 06/09/2024 11:59 PM CDT Hospital Encounter [place] [address] Nuclear Medicine [address] [place] [address] Discharge Disposition: Discharge to home or self care 06/09/2024 9:45 AM CDT - 06/09/2024 11:59 PM CDT Hospital Encounter [place] [address] Nuclear Medicine [address] [place] [address] Dyspnea on exertion; Chest pressure; Pure hypercholesterolemia [...] Hough is a 63 y.o. female. MR#: [id number] Study date: 06/09/2024 Indications: Patient is adult [...] CDT) Stool DNA - Cologuard Negative Negative [employer] (CLIA #:[id number]) Comment: NEGATIVE TEST RESULT. A negative Cologuard [...] Corral et al, N Engl J Med 2014;370(14):0405-1387) The normal value (reference range) for this assay is negative. COLOGUARD RE-SCREENING RECOMMENDATION: Periodic colorectal cancer screening is an important part of preventive healthcare for asymptomatic individuals at average risk for colorectal cancer. Following a negative Cologuard result, the [place] Cancer Society and U.S. Multi-Society Task Force screening guidelines recommend a Cologuard re-screening interval of 3 years. References: [place] Cancer Society Guideline for Colorectal Cancer Screening: https://www.cancer.org/cancer/lolde-qmntgl-rgykil/ndhjsybox-kwhjbywtj-vfxlbfi/ac s-rec ommendations.html.; Donte DK, Tena BULLOCK, Rigo KamaraK, Colorectal Cancer Screening: Recommendations for Physicians and Patients from the U.S. Multi-Society Task Force on Colorectal Cancer Screening , Am J Gastroenterology 2017; 112:1357-7172. TEST DESCRIPTION: Composite algorithmic analysis of stool [...] (Lm Wagoner al, N Engl J Med 2014;370(14):4794-5482.) Cologuard may produce a false negative or false positive result (no colorectal cancer or precancerous polyp present at colonoscopy follow up). A negative Cologuard test result does not guarantee the absence of CRC or advanced adenoma (pre-cancer). The current Cologuard screening interval is every 3 years. ([place] Cancer Society and U.S. Multi-Society Task Force). Cologuard performance data in a 10,000 patient pivotal study using colonoscopy as the reference method can be accessed at the following location: www.MOD Systems/results. Additional description of the Cologuard test process, warnings and precautions can be found at www.BMP Sunstone CorporationogLinkpassrd.com. Stool 10/22/2022 10:4 0 AM CDT 10/23/2022 4:01 PM CDT Isaias Chung MD LAB BODY FLUIDS AND STOOLS ORDER ERICK Final Result [employer] (CLIA #:[id number]) [address] [place] [address] * Hepatitis C antibody (09/27/2022 12:19 PM CDT) Hep C Ab NON-REACTI VE NON-REACT OLRENZO [facility] Comment: HCV antibody was non-reactive. There is no laboratory evidence of HCV infection. In most cases, no further action is required. However, if recent HCV exposure is suspected, a test for HCV RNA (test code 93466) is suggested. For additional information please refer to http://education.Sighter/faq/BRK48w0 (This link is being provided for informational/ educational purposes only.) Blood 09/27/2022 12:1 9 PM CDT 09/27/2022 12:19 PM CDT Isaias Chung MD LAB MICROBIOLOGY - GENERAL ORDER ERICK Final Result [facility] [address] [place] [address] from Last 3 Months or Most Recently Relevant to Health Maintenance Insurance [facility] Care Teams Business Planning Director Relationship Specialty Start Date End Date Isaias Chung MD PCP - General Family Medicine 09/06/20
--- OUTSIDE RECORDS SUMMARY | 2024-09-08 05:12 | XMS_ITS | Clinical Summary ---
Author Organization [facility] Address [address] [place] [address] Care Team Providers Care Sole Layer Hand Name Role Phone Isaias Chung MD Primary Care Provider [phone] Source Comments [facility],non[facility] and Associated Physician Practices is amultiple site organization consisting of ambulatory clinics and hospital sitesin [place], [place], [place] and [place]. This disclosure is being madepursuant to the Care Everywhere program and may not contain all information available regarding this patient. 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 Dictated by Vania Riggins MD (global consumer sector vice president). I, Dr. FLOR NAM M.D. have personally [...] Recently Relevant to Health Maintenance Insurance [facility] Care Teams Sole Layer Hand Relationship Specialty Start Date End Date Isaias Chung MD [address] [place]ART[place] [address] [place] [id number] PCP - General Family Medicine 12/07/23
--- OUTSIDE RECORDS SUMMARY | 2024-09-08 05:12 | XMS_ITS | Encounter Summary ---
Author Organization [facility] Address [address] [place] [address] Care Team Providers Care Extrusion Press Supervisor Name Role Phone Isaias Chung MD Primary Care Provider Encounter Details Date Type Department Care Team (Late st Contact Info) Description 11/23/2023 Telephone [facility] Family Medicine at [address] [address] Isaias Chung MD [address] [place] [address] Social History Tobacco Use Types Packs/Day [...] on filedocumented in this encounter Care Teams Extrusion Press Supervisor Relationship Specialty Start Date End Date Isaias Chung MD PCP - General Family Medicine 09/06/20 documented as of this encounter
--- OUTSIDE RECORDS SUMMARY | 2024-09-08 05:12 | XMS_ITS | Referral Summary ---
Author Organization [facility] Address [address] [place] [address] Care Team Providers Care Cable Television Line Technician Name Role Phone Isaias Chung MD Primary Care Provider [phone] Encounters Date Type Department Care Team Description 06/21/2024 Orders Only [facility] Family Medicine at [address] [place] [phone] Isaias Chung MD Menopause (Primary Dx) 06/09/2024 10:03 AM CDT - 06/09/2024 11:59 PM CDT Hospital Encounter [facility] [address] Nuclear Medicine [address] [place] [address] Discharge Disposition: Discharge to home or self care 06/09/2024 10:02 AM CDT - 06/09/2024 11:59 PM CDT Hospital Encounter [facility] Bld[address] Nuclear Medicine [address] [place] [address] Discharge Disposition: Discharge to home or self care 06/09/2024 10:02 AM CDT - 06/09/2024 11:59 PM CDT Hospital Encounter [facility] [address] Nuclear Medicine [address] [place] [address] Discharge Disposition: Discharge to home or self care 06/09/2024 9:45 AM CDT - 06/09/2024 11:59 PM CDT Hospital Encounter [facility] 2 Nuclear Medicine [address] [place] [address] Dyspnea on exertion; Chest pressure; Pure hypercholesterolemia [...] headache continue 10 mg of citalopram. Recommended lcin-lyx-ogtflph [place] warts. Also recommended black cohosh [...] Referral: Patient to call Ortho Physicant at [place] for potential steroid injection Follow up in [...] Hough is a 63 y.o. female. MR#: [id number] Study date: 06/09/2024 Indications: Patient is adult [...] CDT) Stool DNA - Cologuard Negative Negative [employer] (CLIA #:[id number]) Comment: NEGATIVE TEST RESULT. A negative Cologuard [...] Corral et al, N Engl J Med 2014;370(14):5030-3157) The normal value (reference range) for this assay is negative. COLOGUARD RE-SCREENING RECOMMENDATION: Periodic colorectal cancer screening is an important part of preventive healthcare for asymptomatic individuals at average risk for colorectal cancer. Following a negative Cologuard result, the [place] Cancer Society and U.S. Multi-Society Task Force screening guidelines recommend a Cologuard re-screening interval of 3 years. References: [place] Cancer Society Guideline for Colorectal Cancer Screening: https://www.cancer.org/cancer/gyvsq-skrpwa-cvhhgz/ztiodcfrk-ywqifnznn-tnxtxyz/ac s-rec ommendations.html.; Donte DK, Tena CR, Rigo KamaraK, Colorectal Cancer Screening: Recommendations for Physicians and Patients from the U.S. Multi-Society Task Force on Colorectal Cancer Screening , Am J Gastroenterology 2017; 112:3144-2814. TEST DESCRIPTION: Composite algorithmic analysis of stool [...] Corral et al, N Engl J Med 2014;370(14):2104-8844.) Cologuard may produce a false negative or false positive result (no colorectal cancer or precancerous polyp present at colonoscopy follow up). A negative Cologuard test result does not guarantee the absence of CRC or advanced adenoma (pre-cancer). The current Cologuard screening interval is every 3 years. ([place] Cancer Society and U.S. Multi-Society Task Force). Cologuard performance data in a 10,000 patient pivotal study using colonoscopy as the reference method can be accessed at the following location: www.Aveksa.Gymtrack/results. Additional description of the Cologuard test process, warnings and precautions can be found at www.Smarter Grid SolutionsogHammer & Chisel, Inc.rd.com. Stool 10/22/2022 10:4 0 AM CDT 10/23/2022 4:01 PM CDT us Isaias Chung MD LAB BODY FLUIDS AND STOOLS ORDER ERICK Final Result [employer] (CLIA #:[id number]) [address] [place] [address] * Hepatitis C antibody (09/27/2022 12:19 PM CDT) Hep C Ab NON-REACTI VE NON-REACT [facility] Comment: HCV antibody was non-reactive. There is no laboratory evidence of HCV infection. In most cases, no further action is required. However, if recent HCV exposure is suspected, a test for HCV RNA (test code 12486) is suggested. For additional information please refer to http://education.Bownty/faq/VSL10m8 (This link is being provided for informational/ educational purposes only.) Blood 09/27/2022 12:1 9 PM CDT 09/27/2022 12:19 PM CDT Isaias Chung MD LAB MICROBIOLOGY - GENERAL ORDER ERICK Final Result [facility] [address] [place] [address] from Last 3 Months or Most Recently Relevant to Health Maintenance Insurance [facility] Care Teams Cable Television Line Technician Relationship Specialty Start Date End Date Isaias Chung MD PCP - General Family Medicine 09/06/20
--- OUTSIDE RECORDS SUMMARY | 2024-09-08 05:12 | XMS_ITS | Continuity of Care Document ---
Author Organization [facility] Address [address] [place] [address] [place] [address] Phone Care Team Providers Care Grain Inspector Name Role Phone Lance García MD Unavailable [...] Copied on Encounter OFFICE/OUTPA TIENT VISIT, EST [facility], [address] [place], [address], [place] tel:[phone] [facility] Medicine right thumb pain1 (chief complaint) HLP (chief complaint) breast nodule1 (chief complaint) Pain in right handLump in breastHyperlipidemi aAnemia Mar-2 0-201 7 Ricky Lucas. [address], [place], [place], [address] , [place]. tel:[phone] Referring Provider: Maco Vel[address], [place], [place], [address]. tel:[phone] PREV VISIT, EST, AGE 40-64 [facility], [address], [place], [place], [address], [place] [phone] [facility] anemia1 (chief complaint) HLP (chief complaint) osteoepeni a1 (chief complaint) Physical (chief complaint) AnemiaHyperlipidemi aPain in unspecified jointEncounter for general adult medical exam w abnormal findings 6 Ricky Lucas. [address], [place], [place], [address] , [place]. tel:[phone] Referring Provider: Maco Vel[address], [place], [place], [address]. tel:[phone] OFFICE/OUTPA TIENT VISIT, [facility], [address], [place], [place], [address], [place] tel:[phone] [facility] knee pain1 (chief complaint) hot and cold (chief complaint) anemia1 (chief complaint) Pain in unspecified jointAnemiaChills 6 Ricky Pickett [address], [place], [place], [address] , [place]. [phone] Referring Provider: Maco Vel[address], [place], [place], [address]. tel:[phone] OFFICE/OUTPA TIENT VISIT, EST [facility], [address], [place], [place], [address], [place] tel:[phone] [facility] osteopenia 1 (chief complaint) knee pain (chief complaint) GERd1 (chief complaint) hearing loss (chief complaint) Other specified disorder of bone densityPain in lt kneeGastritis, unspecified, without bleedingConductive hearing loss, bilateral Feb-0 6 Ricky Pickett [address], [place], [place], [address] , [place]. tel:[phone] Referring Provider: Lance García, [address], [place], [place], [address]. tel:[phone] OFFICE/OUTPA TIENT VISIT, EST [facility], [address], [place], [place], [address], [place] [phone] [facility] Hypylori (chief complaint) nevus (chief complaint) Anemia (chief complaint) Screening for osteoporosisOther specified anemiasGastritisNev us, non-neoplastic 5 Ricky Lucas. [address], [place], [place], [address] , [place]. [phone] Referring Provider: Maco Vel[address], [place], [place], [address]. tel:[phone] OFFICE/OUTPA TIENT VISIT, [facility], [address], [place], [place], [address], [place] tel:[phone] [facility] anemia (chief complaint) Vitamin D (chief complaint) arthritis (chief complaint) Anemia, unspecifiedVitamin deficiencyOsteoarth ritisUnspecified vitamin d deficiencyUnspecifi ed vitamin d deficiency 5 Ricky Lucas. [address], [place], [place], [address] , [place]. [phone] Referring Provider: Maco Vel[address], [place], [place], [address]. tel:[phone] PREV VISIT, EST, AGE 40-64 [facility], [address], [place], [place], [address], [place] tel:[phone] [facility] Medicine PHysical (chief complaint) Routine medical exam 5 Ricky Lucas. [address], [place], [place], [address] , [place]. [phone] Referring Provider: Maco Vel[address], [place], [place], [address]. tel:[phone] OFFICE/OUTPA TIENT VISIT, [facility], [address], [place], [place], [address], [place] tel:[phone] [facility] hand pain (chief complaint) Pain in joint involving handPain in joint involving lower legDietary surveillance and counseling 3 Ricky Lucas. [address], [place], [place], [address] , [place]. [phone] Referring Provider: Lance García, [address], [place], [place], [address]. tel:[phone] OFFICE/OUTPA TIENT VISIT, [facility], [address], [place], [place], [address], [place] tel:[phone] [facility] Anemia (chief complaint) HLP (chief complaint) vitamin D (chief complaint) Heaeache (chief complaint) HeadacheOther and unspecified hyperlipidemiaAnemi aUnspecified vitamin d deficiencyDietary surveillance and counseling 3 Ricky Lucas. [address], [place], [place], [address] , [place]. [phone] Referring Provider: [address], [place], [place], [address]. tel:[phone] PREV VISIT, NEW, AGE 40-64 [facility], [address], [place], [place], [address], [place] tel:[phone] [facility] Physical (chief complaint) hot flush (chief complaint) Dietary surveillance and counselingRoutine Medical ExamRoutine Medical Exam 3 Ricky Lucas. [address], [place], [place], [address] , [place]. [phone] Referring Provider: [address], [place], [place], [address]. tel:[phone] Family History Family Member Type Diagnosis Age At Onset Father Problem (finding) Alive and well Brother Problem (finding) Alive and well Mother Problem (finding) Hypertension Payers Payer name Insurance type Covered constitution party ID Authoriza tion(s) No Information Social History [...] has right breast nodule. Pt was in [facility]. Pt had ultrasound done and then biopsy which was negative per pt recently. Pt denies any breast pain ornodule Plan Of Treatment Date Type Action Status Referral Ordered: MAMMOGRAM, ONE BREAST R ordered Referral Ordered: Ady Nair (related to Pain in unspecified joint) ordered Referral Ordered: Julito Vargas (related to Pain in unspecified joint) ordered Referral Referred To: Ady Nair [address] [place], [phone] Ordered: Referrals: Ady Nair. Follow-up and Treat ordered Referral Ordered: MAMMOGRAM, ONE BREAST ordered Referral Referred To: Julito Vargas [address] [place], [id number] Ordered: Referrals: Julito Vargas. Evaluate and treat [...] right sofia ast nodule. Pt was in [facility]. Pt had ultrasound done and then [...] GI bleeding. Pt still has not seen CRITICAL CARE NURSE SPECIALIST yet. . Pt denies any vaginal bleeding. [...] abd pain Pt denies any GI bleeding. arthritis Pertinent negati ves include abdominal pain, fatigue, headache, joint swelling, rash and weight loss. Additional information: Pt has low back and some hip and knee pain. Pt has arthritis Pt denies any loss of bowel or bladder control. Pt denies any scatica Vitamin D Pt has low vitam i D anemia Associated sympt oms include joint pain. Pertinent negatives include abdominal pain, chest pain, cold intolerance, constipation, depression, diarrhea, dyspnea, fatigue, gait disturbance, headache, nausea, vomiting and weight loss. Additional information: Pt has mild anemia and low ferritin. Pt denies any GI complaitns No blood loss. No hematuria. Pt denies any vaginal bleeding. PHysical Pt needs annual physical. Pt has [...] caloric intake Related to Dietary surveillance counseling Decrease caloric intake Related to Dietary surveillance counseling Dietary counseling Related to Di etary surveillance counseling Assessments Type Assessment Date assessment Pain in right hand assessment Lump in breast assessment Hyperlipidemia assessment Anemia Mental Status Date Cognitive Assessment Orientation - [place] ed to time, place, person, situation.
--- OUTSIDE RECORDS SUMMARY | 2024-09-08 05:12 | XMS_ITS | Clinical Summary ---
Author Organization [facility] Address [address] [place] [address] Care Team Providers Care Hand Paint Mixer Name Role Phone Lance García MD Primary Care Provider [phone] Allergies No known active allergies Medications aspirin [...] patient's age to complete this topic Insurance [employer] Member Subscriber Plan / Payer (Ef fective 2016-Present) Name:Flaquita Hough Relation to Subscriber:Self Name:Flaquita Hough Payer ID:[id number] (NAIC) Group ID:Not on file Type:Not on file Address: [place] [phone] [place] Advance Directives * Full Code (Latest Code Status on File) Date Activated Date Inactivated Comments 11/16/2017 3:53 PM 11/16/2017 7:04 PM Care Teams Hand Paint Mixer Relationship Specialty Start Date End Date Lance García MD PCP - General 06/29/15
== END 2024-09-08 02:50 | disposition left against medical advice (07) ==
LOC: ANHED 09-08 05:10
PROVIDERS: PCP Internal Medicine
DX: H53.8 Other visual disturbances (principal)
CPT/HCPCS: 99199

== ENCOUNTER 2024-09-26 10:51 | Outpatient (RCR) | payer SELFPAY | END 2024-09-26 23:59 | disposition home or self-care (01) | LOC: ANHAUDIO 10:51 | PROVIDERS: PCP Internal Medicine | DX: Z46.1 Encounter for fitting and adjustment of hearing aid (principal) | CPT/HCPCS: 92593 ==